=== PATIENT | male | born 1930 | race Caucasian/White ===

== ENCOUNTER 2016-10-01 16:26 | Emergency (ER) | payer MEDICARE, BC ==
[2016-10-01 16:37] VITALS: BP 127/60
--- NOTE | 2016-10-01 16:59 | EDM.PDOC ---
ED HISTORY OF PRESENT ILLNESS - General Chief Complaint: Chest Pain Stated Complaint: LT ARM WEAKNESS Time Seen by Provider: 10/01/16 16:59 Source of Information: Reports: Patient History Limitations: Reports: No limitations - History of Present Illness INITIAL COMMENTS - FREE TEXT/NARRATIVE: 85-year-old male presents to the ED for evaluation of what he calls left arm weakness. He states it's not worked or felt quite right for about 2 weeks.discomfort is constant and described as a deep ache.He doesn't feel like he has the strength in it that he should. Seems to have some ache in the middle of the forearm the middle of the biceps and up into the left exit low. He also reports a heaviness across his anterior left and right upper chest. Has a chronic productive sounding cough. Used his inhaler this morning for the first time in a lengthy period of time. Feels very short of breath on minimal exertion. Has a history of previous coronary artery bypass surgery with at least one NV. ED in good. He seen in the ED amy Vick for constipation which she reports is much improved.of note O2 sats are 99% on room air. Symptom Onset Date: 09/30/16 (heaviness in his upper chest started yesterday. As discussed above left arm weakness started 2 weeks ago or more) Timing/Duration: Reports: Day(s):, Gradual onset, Unsure Severity: moderate Location, General: Reports: chest (some mild heaviness across his upper chest both right and left side. Paroxysmal so she did cough.), upper extremity, left ( middle biceps middle of the forearm and left eczema.) Quality: Reports: Ache, Pressure (mild heaviness.) Improves with: Reports: None Worsens with: Reports: None, Movement Context, General: Denies: Activity (basal quite easy I because more short of breath on minimal exertion.), Exercise, Lifting, Sick contact, Trauma, Other Associated Symptoms (General): Reports: chest pain, cough, malaise, shortness of breath, weakness (today his left upper extremity seems weaker than normal.). Denies: no other symptoms, confusion (see history of present illness), cough w sputum, diaphoresis, fever/chills, headaches, loss of appetite, nausea/ vomiting, rash, seizure Treatments MANAGER FORMS: Reports: Other (see below) (ief of the shortness of breat) - Related Data Allergies/ADRs: Allergies Allergy/AdvReac Type Severity Reaction Status Date / Time ampicillin Allergy Hives Verified 10/01/16 16:32 levofloxacin [From Levaquin] Allergy Rash Verified 10/01/16 16:32 Penicillins Allergy Hives Verified 10/01/16 16:32 tetracycline Allergy Cannot Verified 10/01/16 16:32 Remember atorvastatin [From Lipitor] AdvReac Body Aches Verified 10/01/16 16:32 lovastatin AdvReac Body Aches Verified 10/01/16 16:32 Home Meds: Home Meds Acetaminophen [Tylenol] 325 mg PO DAILY PRN 12/23/13 [History] Finasteride [Proscar] 5 mg PO DAILY 12/23/13 [History] Furosemide [Lasix] 20 mg PO DAILY 12/23/13 [History] [place]-3 Fatty Acids/Fish Oil [[facility] Fish Oil 1,000 mg Softgel] 1 each PO DAILY [History] Terazosin [Hytrin] 10 mg PO BEDTIME 12/23/13 [History] Albuterol [Proventil HFA] 2 inh INH ASDIRECTED PRN 07/10/16 [History] Albuterol [Take Home: Albuterol 0.083%, 4 Neb Pack] 1 inh NEB QID PRN 07/10/16 [ History] Calcium Carbonate/Vitamin D3 [Calcium Carb 500 MG] 500 10/01/16 [History] Cyanocobalamin (Vitamin B-12) [B-12] 1,000 mcg PO DAILY 10/01/16 [History] Metoprolol Succinate [Toprol XL] 12.5 mg PO DAILY 10/01/16 [History] Polyethylene Glycol 3350 [MiraLAX] 1 packet PO DAILY 10/01/16 [History] Pravastatin [Pravachol] 20 mg PO DAILY 10/01/16 [History] Prednisone [IJD: predniSONE] 20 mg PO ASDIRECTED #15 tab 10/01/16 [Rx] Past Medical History HEENT History: Reports: Cataract, Impaired vision Other HEENT History: Wears glasses, dentures Cardiovascular History: Reports: Afib, Aneurysm, Bypass, Cardiomyopathy, High cholesterol, Hypertension, NV, PTCA, Other (see below) Other Cardiovascular History: carotid stenosis, dvt x2, Respiratory History: Reports: Asthma, COPD Gastrointestinal History: Reports: Diverticulosis, GERD, Other (see below) Other Gastrointestinal History: increased bilirubin Genitourinary History: Reports: BPH, Other (see below) Other Genitourinary History: renal insufficiency, retention Musculoskeletal History: Reports: Other (see below) Other Musculoskeletal History: rib fracture, degenrative joint disease, vertebral fracture, hand pain, stress fracture Neurological History: Reports: Neuropathy, peripheral Endocrine/Metabolic History: Reports: Diabetes, type II Hematologic History: Reports: Anemia Oncologic (Cancer) History: Reports: Colon Dermatologic History: Reports: Other (see below) Other Dermatologic History: actinic keratosis, skin lesion, cryosurgery - Past Surgical History HEENT Surgical History: Reports: Cataract surgery Cardiovascular Surgical History: Reports: AAA repair, Coronary artery bypass GI Surgical History: Reports: Appendectomy, Colonoscopy, EGD, Other (see below) Other GI Surgeries/Procedures: colon resection Social & Family History - Family History Family Medical History: Noncontributory - Tobacco Use Smoking Status *Q: Former Smoker Years of Tobacco use: 40 Used Tobacco, but Quit: Yes Month Tobacco Last Used: 10 yrs Second Hand Smoke Exposure: No - Caffeine Use Caffeine Use: Reports: Coffee, Soda - Alcohol Use Days Per Week of Alcohol Use: 0 - Recreational Drug Use Recreational Drug Use: No - Living Situation & Occupation Occupation: retired ED ROS GENERAL - Review of Systems Review Of Systems: See Below Constitutional: Reports: malaise, weakness, fatigue, decreased appetite, weight loss. Denies: chills HEENT: Reports: Hearing loss (chronically hard of hearing.. Does wear hearing aids.) Respiratory: Reports: shortness of breath, wheezing, cough, sputum. Denies: pleuritic chest pain, hemoptysis Cardiovascular: Reports: Chest pain (across right upper and left upper chest. Some discomfort in his left arm eczema and forearm. He states this is been present for about 2 weeks. The chest discomfort more or less just the last few days.), Dyspnea on exertion (chronically), Edema (mild in his feet.). Denies: Blood pressure problem, Orthopnea, Palpitations Endocrine: Reports: fatigue GI/Abdominal: Reports: Constipation (resolved after soapsuds enema and MiraLax orally yesterday.) : Reports: frequency, other (nocturia x3. Has BPH.) Musculoskeletal: Reports: neck pain, shoulder pain, back pain, joint pain (the pain at times) Skin: Reports: no symptoms Neurological: Reports: no symptoms Psychiatric: Reports: No symptoms Hematologic/Lymphatic: Reports: no symptoms Immunologic: Reports: no symptoms ED EXAM, GENERAL - Physical Exam Exam: See Below Exam Limited By: Physical impairment (he is quite hard of hearing. To speak quite loud.) General Appearance: alert, WD/WN, no apparent distress Throat/Mouth: Normal inspection, Normal lips, Normal teeth, Normal oropharynx Head: atraumatic, normocephalic Neck: normal inspection, supple, limited range of motion, tender lateral (has quite tender lateral spine bilaterally particularly C6-C7 level. He has crepitus with rotation in either direction.). No: carotid bruit, lymphadenopathy (L), lymphadenopathy (R), thyromegaly Respiratory/Chest: decreased breath sounds (throughout both lungs worse on the left as compared to the rightdecreased breath sounds to the lower 30% of the posterior lung moe bilaterally.), rhonchi (throughout both lungs.), wheezing , prolonged expiration, other (well-healed midline sternotomy incision from previous bypass surgery) Cardiovascular: regular rate, rhythm, no edema, no gallop, no murmur, no rub, JVD (4 cm below the angle of the mandible.). No: normal peripheral pulses Peripheral Pulses: 1+: posterior tibial (L), posterior tibial (R), dorsalis pedis (L), dorsalis pedis (R) GI/Abdominal: normal bowel sounds, soft, non tender, no organomegaly, no abnormal bruit, no mass (Male) Exam: No hernia Back Exam: normal inspection, full range of motion. No: CVA tenderness (L), CVA tenderness (R) Extremities: normal inspection, normal range of motion, pedal edema (trace edema at the ankles.), other (yet full motor power tone and strength in his left upper extremity. There was no left axillary masses. Good axillary pulses good radial and ulnar pulses distally. No localized pain that I could identify the muscles of the arm or forearm.) Neurological: alert, oriented, CN II-XII intact, normal cognition, no motor/ sensory deficits, other Psychiatric: normal affect, normal mood EKG INTERPRETATION EKG Date: 10/01/16 Time: 16:40 Rhythm: NSR Rate (beats/min): 74 [place]: RAD-right axis deviation (118.) P-wave: present QRS: other (he is Q waves in leads one and x-ray V1 V2 compatible with an old anteroseptal myocardial infarction. There is also Q waves in leads one and aVL compatible with a lateral wall NV. There is diffuse T-wave changes flattening for the most part in leads 3 aVF V5 and V6. QT interval is slightly prolonged.) EKG Interpretation Comments: abnormal ECG Course - Vital Signs Last Recorded V/S: Last Vital Signs Temp 36.8 C 10/01/16 16:33 Pulse 80 10/01/16 16:33 Resp 18 10/01/16 16:33 BP 127/60 10/01/16 16:33 Pulse Ox 99 10/01/16 16:33 - Orders/Labs/Meds Orders: Active Orders 24 hr Category Date Time Status EKG Documentation Completion [RC] STAT Care 10/01/16 17:59 Active Chest 1V Frontal [CR] Stat Exams 10/01/16 17:05 Taken CULTURE BLOOD [BC] Stat Lab 10/01/16 17:06 Ordered CULTURE BLOOD [BC] Stat Lab 10/01/16 17:06 Ordered Blood Culture x2 Reflex Set [OM.PC] Stat Oth 10/01/16 17:06 Ordered Labs: Laboratory Tests 10/01/16 10/01/16 10/01/16 Range/Units 16:40 16:40 16:40 WBC 5.03 (4.23-9.07) K/mm3 RBC 4.36 L (4.63-6.08) M/mm3 Hgb 12.6 L (13.7-17.5) gm/L Hct 39.4 L (40.1-51.0) % MCV 90.4 (79.0-92.2) fl MCH 28.9 (25.7-32.2) pg MCHC 32.0 L (32.2-35.5) g/dl RDW Std Deviation 44.5 H (35.1-43.9) fL Plt Count 155 L (163-337) K/mm3 MPV 10.9 (9.4-12.3) fl Neutrophils % (Manual) 51 (40-60) % Band Neutrophils % 0 (0-10) % Lymphocytes % (Manual) 45 H (20-40) % Atypical Lymphs % 0 % Monocytes % (Manual) 2 (2-10) % Eosinophils % (Manual) 2 (0.8-7.0) % Basophils % (Manual) 0 L (0.2-1.2) Platelet Estimate Adequate RBC Morph Comment Normal PT 10.5 (8.0-13.0) SECONDS INR 0.99 Sodium 142 (136-145) mEq/L Potassium 4.2 (3.5-5.1) mEq/L Chloride 106 (98-107) mEq/L Carbon Dioxide 28 (21-32) mEq/L Anion Gap 12.2 (5-15) BUN 29 H (7-18) mg/dL Creatinine 1.6 H (0.7-1.3) mg/dL Est Cr Clr Drug Dosing TNP Estimated GFR (MDRD) 41 (>60) mL/min BUN/Creatinine Ratio 18.1 H (14-18) Glucose 133 H (83-115) mg/dL Calcium 8.9 (8.5-10.1) mg/dL Magnesium 2.2 (1.8-2.4) mg/dl Total Bilirubin 0.9 (0.2-1.0) mg/dL AST 14 L (15-37) U/L ALT 16 (16-63) U/L Alkaline Phosphatase 88 (46-116) U/L CK-MB (CK-2) 3.7 H (0-3.6) ng/ml Troponin I < 0.017 (0.00-0.056) ng/mL C-Reactive Protein < 0.2 (<1.0) mg/dL B-Natriuretic Peptide (0-100) pg/mL Total Protein 7.0 (6.4-8.2) g/dl Albumin 3.7 (3.4-5.0) g/dl Globulin 3.3 gm/dL Albumin/Globulin Ratio 1.1 (1-2) 10/01/16 Range/Units 16:40 WBC (4.23-9.07) K/mm3 RBC (4.63-6.08) M/mm3 Hgb (13.7-17.5) gm/L Hct (40.1-51.0) % MCV (79.0-92.2) fl MCH (25.7-32.2) pg MCHC (32.2-35.5) g/dl RDW Std Deviation (35.1-43.9) fL Plt Count (163-337) K/mm3 MPV (9.4-12.3) fl Neutrophils % (Manual) (40-60) % Band Neutrophils % (0-10) % Lymphocytes % (Manual) (20-40) % Atypical Lymphs % % Monocytes % (Manual) (2-10) % Eosinophils % (Manual) (0.8-7.0) % Basophils % (Manual) (0.2-1.2) Platelet Estimate RBC Morph Comment PT (8.0-13.0) SECONDS INR Sodium (136-145) mEq/L Potassium (3.5-5.1) mEq/L Chloride (98-107) mEq/L Carbon Dioxide (21-32) mEq/L Anion Gap (5-15) BUN (7-18) mg/dL Creatinine (0.7-1.3) mg/dL Est Cr Clr Drug Dosing Estimated GFR (MDRD) (>60) mL/min BUN/Creatinine Ratio (14-18) Glucose (83-115) mg/dL Calcium (8.5-10.1) mg/dL Magnesium (1.8-2.4) mg/dl Total Bilirubin (0.2-1.0) mg/dL AST (15-37) U/L ALT (16-63) U/L Alkaline Phosphatase (46-116) U/L CK-MB (CK-2) (0-3.6) ng/ml Troponin I (0.00-0.056) ng/mL C-Reactive Protein (<1.0) mg/dL B-Natriuretic Peptide 196 H (0-100) pg/mL Total Protein (6.4-8.2) g/dl Albumin (3.4-5.0) g/dl Globulin gm/dL Albumin/Globulin Ratio (1-2) Meds: Medications Discontinued Medications Generic Name Dose Route Start Last Admin Trade Name Freq PRN Reason Stop Dose Admin Acetaminophen 650 mg 10/01/16 17:07 10/01/16 18:06 Tylenol PO 10/01/16 17:08 650 mg NOW ONE Administration Sodium Chloride 1,000 mls @ 125 mls/hr 10/01/16 17:15 Normal Saline IV ASDIRECTED CRISTIANO Prednisone 20 mg 10/01/16 17:59 10/01/16 18:06 Prednisone PO 10/01/16 18:00 20 mg ONETIME ONE Administration - Radiology Interpretation Free Text/Narrative:: 85-year-old male presents to the ED for evaluation of vague complaints of weakness in his left upper extremity for the last 2 weeks. Associated dyspnea on minimal exertion and some headaches across his upper left and right chest. This seemed to be more present the last few days. He does have a productive sounding cough at times. On examination he has COPD statements that with diffuse rhonchi and wheezes throughout both lung moe. I could find nothing wrong with the left upper Omar with full motor power tone and strength and normal coordination on finger to nose and rapid alternating movements. He has slight tenderness on testing the supraspinatus tendon of the right left shoulder. Plan ECG does not show anything acute. 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 No acute ischemic changes appreciated plan one view chest x-ray routine labs to include BMP and cardiac markers and serum magnesium. IV will be normal saline at 125 mils per hour. Feels warm to me I ordered blood cultures x2. Given Tylenol 650 mg per or for headache relief. Will be given a duo neb as well for his wheezing and chest congestion. - Re-Assessments/Exams Free Text/Narrative Re-Assessment/Exam: 10/01/16 17:48 chest shows mild cardiomegaly. He has mild fibrosis throughout the lung site old appearing lungs. Slight blunting of the right costophrenic angle. There is no pleural effusion. No true infiltrate within the lungs. 10/01/16 17:51labs reveal a normal white count at 5.03 with 51% neutrophils and 45% with hemoglobin is 12.6 hematocrit 39.4. Pelvis normal 155,000. Coags were normal. Chemistry shows a sodium of 142 potassium 4.2 chloride 106. Anion gap is 12.2. BUN is up a little bit at 29 creatinine is 1.6 GFR is 41. Glucose 133 magnesium 2.2 troponin was less than 0.017 CRP less than 0.2. BNP mildly elevated at 196. Therefore no evidence of recent myocardial infarction minimal evidence of heart failure. Most of his adventitious sounds in his lungs are secondary to COPD. 10/01/16 18:[address] him on low dose prednisone 20 mg a.m. and suppertime for 5 days then once a day in the morning for another 5 days. I suspect the pain in his left upper extremity is actually coming out of his neck which is showing evidence of arthritic changes. The prednisone is likely to help this as well his his lungs. Advised him to use his albuterol med nebulizer machine twice daily morning and bedtime. He was quite happy to find out he was not having a heart attack causing his left upper extremity pain. 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 Of stroke continued pain in the middle of the left arm and forearm. Investigations completed in the ED revealed a little bit of fluid within the lungs but this is of no major importance. Major problems with the lungs are emphysema with a lot of wheezing causing her to be more short of breath than normal. I suspect the left upper extremity pain is secondary to a pinched nerve in your neck which is causing the discomfort in the left upper arm. Treatment is to be prednisone 20 mg with breakfast and supper for 5 days then one tablet in the morning only for further 5 days to reduce inflammation in both her lungs and help ease the arthritis pain in her neck and hopefully relieve pain and left arm. Followup with her personal physician in 12 days time. - My Orders Last 24 Hours: My Active Orders 10/01/16 17:05 Chest 1V Frontal [CR] Stat 10/01/16 17:06 CULTURE BLOOD [BC] Stat CULTURE BLOOD [BC] Stat Blood Culture x2 Reflex Set [OM.PC] Stat 10/01/16 17:59 EKG Documentation Completion [RC] STAT - Assessment/Plan Last 24 Hours: My Active Orders 10/01/16 17:05 Chest 1V Frontal [CR] Stat 10/01/16 17:06 CULTURE BLOOD [BC] Stat CULTURE BLOOD [BC] Stat Blood Culture x2 Reflex Set [OM.PC] Stat 10/01/16 17:59 EKG Documentation Completion [RC] STAT
[2016-10-01] MEDS ORDERED: Acetaminophen 325 MG Tab PO ONE (17:07)
[2016-10-01] MEDS ORDERED: Sodium Chloride 0.9% 1,000 ML IV SCH (17:15)
[2016-10-01] MEDS ORDERED: predniSONE 20 MG Tab PO ONE (17:59)
--- NOTE | 2016-10-02 08:17 | CR ---
Chest: Portable view of the chest was obtained. Comparison: Previous chest x-ray of 10/15/15. Blunting of the right lateral costophrenic angle is seen which appears stable from prior exam. Lungs are clear with no acute infiltrates. Sternotomy noted. Heart size not enlarged. Upper mediastinum appears within normal limits. Bony structures are grossly intact. Partially visualized aortic stent is present. Impression: 1. Stable findings as noted above. Nothing acute is appreciated on portable chest x-ray. No significant change from prior chest x-ray is seen. Diagnostic code #2
== END 2016-10-01 18:15 | disposition home or self-care (01) ==
LOC: JD.ED 16:26
DX: J43.9 Emphysema, unspecified (principal); M47.22 Other spondylosis with radiculopathy, cervical region; I10 Essential (primary) hypertension; R06.02 Shortness of breath; I25.2 Old myocardial infarction; I25.810 Atherosclerosis of coronary artery bypass graft(s) without angina pectoris; E78.00 Pure hypercholesterolemia, unspecified; K21.9 Gastro-esophageal reflux disease without esophagitis; E11.9 Type 2 diabetes mellitus without complications; D64.9 Anemia, unspecified; Z98.49 Cataract extraction status, unspecified eye; Z95.1 Presence of aortocoronary bypass graft; Z90.49 Acquired absence of other specified parts of digestive tract; Z87.891 Personal history of nicotine dependence; Z79.899 Other long term (current) drug therapy; Z88.0 Allergy status to penicillin; Z88.1 Allergy status to other antibiotic agents; Z88.8 Allergy status to other drugs, medicaments and biological substances
CPT/HCPCS: 36415; 71010; 80053; 82553; 83735; 83880; 84484; 85025; 85610; 86140; 93005; 99284; A9270

== ENCOUNTER 2016-10-03 14:04 | Emergency (ER) | payer MEDICARE, BC ==
[2016-10-03] MEDS ORDERED: Sodium Chloride 0.9% 10 ML Syringe FLUSH PRN (14:20)
[2016-10-03] MEDS ORDERED: HYDROmorphone 0.5 MG/0.5 ML Syringe IVPUSH ONE ×2 (14:22→15:19)
--- NOTE | 2016-10-03 15:10 | EDM.PDOC ---
ED HPI Trauma - General Chief Complaint: Lower Extremity Injury/Pain Stated Complaint: [facility] Time Seen by Provider: 10/03/16 14:12 Source: Reports: Patient, EMS History Limitations: Reports: No limitations - History of Present Illness INITIAL COMMENTS - FREE TEXT/NARRATIVE: The patient was at home on his porch and he tripped on a rug and fell and fractured his left hip. He came by ambulance. He denies any LOC and he did not hurt his neck. He has no fever, chills, cough, congestion, chest pain, shortness of breath or abdominal pain. He has a history of COPD, CABG, A-fib, diabetes, aneurysm repair, cardiomyopathy, HTN, GREGG, carotid stenosis, DVT X 2 and renal insufficiency. Occurred When: just prior to arrival Occurred Where: home Method of Injury: fall Severity: moderate Pain/Injury Location: Reports: lower extremity, left (hip) Consciousness: Reports: no loss of consciousness Associated Symptoms: Reports: no other symptoms Allergies/ADRs: Allergies ampicillin Allergy (Verified 10/03/16 14:06) Hives levofloxacin [From Levaquin] Allergy (Verified 10/03/16 14:06) Rash Penicillins Allergy (Verified 10/03/16 14:06) Hives tetracycline Allergy (Verified 10/03/16 14:06) Cannot Remember atorvastatin [From Lipitor] Adverse Reaction (Verified 10/03/16 14:06) Body Aches lovastatin Adverse Reaction (Verified 10/03/16 14:06) Body Aches Home Medications: Ambulatory Orders Acetaminophen [Tylenol] 325 mg PO DAILY PRN 12/23/13 [Confirmed 10/01/16] Finasteride [Proscar] 5 mg PO DAILY 12/23/13 [Confirmed 10/01/16] Furosemide [Lasix] 20 mg PO DAILY 12/23/13 [Confirmed 10/01/16] [place]-3 Fatty Acids/Fish Oil [Cvs Fish Oil 1,000 mg Softgel] 1 each PO DAILY [Confirmed 10/01/16] Terazosin [Hytrin] 10 mg PO BEDTIME 12/23/13 [Confirmed 10/01/16] Albuterol [Proventil HFA] 2 inh INH ASDIRECTED PRN 07/10/16 [Confirmed 10/01/16] Albuterol [Take Home: Albuterol 0.083%, 4 Neb Pack] 1 inh NEB QID PRN 07/10/16 [ Confirmed 10/01/16] Calcium Carbonate/Vitamin D3 [Calcium Carb 500 MG] 500 10/01/16 Cyanocobalamin (Vitamin B-12) [B-12] 1,000 mcg PO DAILY 10/01/16 [Confirmed ] Metoprolol Succinate [Toprol XL] 12.5 mg PO DAILY 10/01/16 [Confirmed 10/01/16] Polyethylene Glycol 3350 [MiraLAX] 1 packet PO DAILY 10/01/16 [Confirmed ] Pravastatin [Pravachol] 20 mg PO DAILY 10/01/16 [Confirmed 10/01/16] Prednisone [IJD: predniSONE] 20 mg PO ASDIRECTED #15 tab 10/01/16 Past Medical History HEENT History: Reports: Cataract, Impaired vision Other HEENT History: Wears glasses, dentures Cardiovascular History: Reports: Afib, Aneurysm, Bypass, Cardiomyopathy, High cholesterol, Hypertension, [place], PTCA, Other (see below) Other Cardiovascular History: carotid stenosis, dvt x2, Respiratory History: Reports: Asthma, COPD Gastrointestinal History: Reports: Diverticulosis, GERD, Other (see below) Other Gastrointestinal History: increased bilirubin Genitourinary History: Reports: BPH, Other (see below) Other Genitourinary History: renal insufficiency, retention Musculoskeletal History: Reports: Other (see below) Other Musculoskeletal History: rib fracture, degenrative joint disease, vertebral fracture, hand pain, stress fracture Neurological History: Reports: Neuropathy, peripheral Endocrine/Metabolic History: Reports: Diabetes, type II Hematologic History: Reports: Anemia Oncologic (Cancer) History: Reports: Colon Dermatologic History: Reports: Other (see below) Other Dermatologic History: actinic keratosis, skin lesion, cryosurgery - Past Surgical History HEENT Surgical History: Reports: Cataract surgery Cardiovascular Surgical History: Reports: AAA repair, Coronary artery bypass GI Surgical History: Reports: Appendectomy, Colonoscopy, EGD, Other (see below) Other GI Surgeries/Procedures: colon resection Social & Family History - Family History Family Medical History: Noncontributory - Tobacco Use Smoking Status *Q: Former Smoker Years of Tobacco use: 40 Used Tobacco, but Quit: Yes Month Tobacco Last Used: 10 yrs Second Hand Smoke Exposure: No - Caffeine Use Caffeine Use: Reports: Coffee, Soda - Alcohol Use Days Per Week of Alcohol Use: 0 - Recreational Drug Use Recreational Drug Use: No - Living Situation & Occupation Occupation: retired Review of Systems - Review of Systems Review Of Systems: See Below Constitutional: Reports: no symptoms Eyes: Reports: no symptoms Ears: Reports: no symptoms Nose: Reports: no symptoms Mouth/Throat: Reports: no symptoms Respiratory: Reports: no symptoms Cardiovascular: Reports: no symptoms GI/Abdominal: Reports: No symptoms Genitourinary: Reports: no symptoms Musculoskeletal: Reports: other (Left hip pain) Skin: Reports: no symptoms Neurological: Reports: no symptoms Trauma Exam - Physical Exam Exam: See Below Exam Limited By: No limitations General Appearance: Reports: alert, no apparent distress Head: Reports: atraumatic, normocephalic Ears: Reports: normal external exam Nose: Reports: normal inspection Neck: Reports: non-tender Respiratory Exam: Reports: no respiratory distress, lungs clear, normal breath sounds Cardiovascular: Reports: regular rate, rhythm, no edema, no murmur GI/Abdominal: Reports: soft, non tender, no organomegaly Extremities: Reports: other (Deformity at the left hip and moderate to severe pain upon palpation. Leg is shortened. Good sensation and pulses distally.) EKG INTERPRETATION EKG Date: 10/03/16 Time: 14:48 Rhythm: NSR Rate (beats/min): 78 [place]: normal P-wave: present QRS: normal ST-T: normal QT: normal EKG Interpretation Comments: Q waves in the anterior leads Course - Vital Signs Last Recorded V/S: Last Vital Signs Temp 97.6 F 10/03/16 14:06 Pulse 80 10/03/16 14:06 Resp 20 10/03/16 14:06 BP 144/75 H 10/03/16 14:06 Pulse Ox - Orders/Labs/Meds Orders: Active Orders 24 hr Category Date Time Status Cardiac Monitoring [RC] . DIRECTED Care 10/03/16 14:20 Active EKG Documentation Completion [RC] STAT Care 10/03/16 14:21 Active Peripheral IV Care [RC] . DIRECTED Care 10/03/16 14:20 Active Chest 1V Frontal [CR] Stat Exams 10/03/16 14:21 Taken Hip Min 2V or 3V w Pelvis Lt [CR] Stat Exams 10/03/16 14:21 Taken Sodium Chloride 0.9% [Saline Flush] Med 10/03/16 14:20 Active 10 ml FLUSH ASDIRECTED PRN Peripheral IV Insertion Adult [OM.PC] Stat Oth 10/03/16 14:20 Ordered Medication Orders Sodium Chloride (Saline Flush) 10 ml FLUSH ASDIRECTED PRN PRN Reason: Keep Vein Open Last Admin: 10/03/16 15:26 Dose: 10 ml Labs: Laboratory Tests 10/03/16 10/03/16 10/03/16 Range/Units 14:12 14:12 14:20 WBC 6.94 (4.23-9.07) K/mm3 RBC 4.17 L (4.63-6.08) M/mm3 Hgb 12.0 L (13.7-17.5) gm/L Hct 37.1 L (40.1-51.0) % MCV 89.0 (79.0-92.2) fl MCH 28.8 (25.7-32.2) pg MCHC 32.3 (32.2-35.5) g/dl RDW Std Deviation 43.6 (35.1-43.9) fL Plt Count 156 L (163-337) K/mm3 MPV 10.7 (9.4-12.3) fl Neut % (Auto) 76.7 H (34.0-67.9) % Lymph % (Auto) 16.6 L (21.8-53.1) % [place] % (Auto) 6.2 (5.3-12.2) % Eos % (Auto) 0.1 L (0.8-7.0) Baso % (Auto) 0.0 L (0.1-1.2) % Neut # 5.32 (1.78-5.38) K/mm3 Lymph # 1.15 L (1.32-3.57) K/mm3 [place] # 0.43 (0.30-0.82) K/mm3 Eos # 0.01 L (0.04-0.54) K/mm3 Baso # 0.00 L (0.01-0.08) K/mm3 Sodium 139 (136-145) mEq/L Potassium 4.7 (3.5-5.1) mEq/L Chloride 102 (98-107) mEq/L Carbon Dioxide 26 (21-32) mEq/L Anion Gap 15.7 H (5-15) BUN 32 H (7-18) mg/dL Creatinine 1.7 H (0.7-1.3) mg/dL Est Cr Clr Drug Dosing TNP Estimated GFR (MDRD) 38 (>60) mL/min BUN/Creatinine Ratio 18.8 H (14-18) Glucose 178 H (83-115) mg/dL Calcium 9.3 (8.5-10.1) mg/dL Total Bilirubin 0.7 (0.2-1.0) mg/dL AST 14 L (15-37) U/L ALT 20 (16-63) U/L Alkaline Phosphatase 88 (46-116) U/L Troponin I < 0.017 (0.00-0.056) ng/mL Total Protein 7.4 (6.4-8.2) g/dl Albumin 3.8 (3.4-5.0) g/dl Globulin 3.6 gm/dL Albumin/Globulin Ratio 1.1 (1-2) Urine Color Yellow (Yellow) Urine Appearance Slt cloudy H (Clear) Urine pH 6.0 (5.0-8.0) Ur Specific [place] 1.020 (1.005-1.030) Urine Protein Negative (Negative) Urine Glucose (UA) Negative (Negative) Urine Ketones Negative (Negative) Urine Occult Blood 2+ H (Negative) Urine Nitrite Negative (Negative) Urine Bilirubin Negative (Negative) Urine Urobilinogen 0.2 (0.2-1.0) Ur Leukocyte Esterase 2+ H (Negative) Urine RBC 0-5 (0-5) /hpf Urine WBC 10-20 H (0-5) /hpf Ur Squamous Epith Cells Not seen (0-5) /hpf Urine Bacteria Many H (FEW) /hpf Urine Mucus Not seen (FEW) /hpf Meds: Medications Generic Name Dose Route Start Last Admin Trade Name Freq PRN Reason Stop Dose Admin Sodium Chloride 10 ml 10/03/16 14:20 10/03/16 15:26 Saline Flush FLUSH 10 ml ASDIRECTED PRN Administration Keep Vein Open Discontinued Medications Generic Name Dose Route Start Last Admin Trade Name Freq PRN Reason Stop Dose Admin Hydromorphone HCl 0.5 mg 10/03/16 14:22 10/03/16 14:46 Dilaudid IVPUSH 10/03/16 14:23 0.5 mg ONETIME ONE Administration Hydromorphone HCl 0.5 mg 10/03/16 15:19 10/03/16 15:27 Dilaudid IVPUSH 10/03/16 15:20 0.5 mg ONETIME ONE Administration - Re-Assessments/Exams Free Text/Narrative Re-Assessment/Exam: 10/03/16 15:11 I ordered oxygen, IV saline lock and dilaudid 0.5mg IV. He has an intertrochanteric fracture of the left hip. His EKG shows a NSR and his CXR looks good. 10/03/16 15:15 His Hgb is a little low at 12. His platelets are a little low at 156. His creatinine is elevated at 1.7. His troponin is negative. 10/03/16 15:20 He had more pain so I ordered dilaudid 0.5mg IV. 10/03/16 15:50 I talked to our hospitalist and he came to see the patient and they talked about his risks for surgery. He has lots of health problems. The patient and family decided to go to [facility] in [place]. I called [facility] and talked with Dr Lynne the orthopedic surgeon working second hand and he accepted the patient. He will go to the ER first. Departure - Departure Time of Disposition: 16:00 Disposition: DC/Tfer to Acute Hospital 02 Condition: fair Clinical Impression: Intertrochanteric fracture, hip Fall Qualifiers: Encounter type: initial encounter Qualified Code(s): W19.XXXA - Unspecified fall, initial encounter Referrals: PCP,Unknown [Primary Care Provider] - Forms: ED Department Discharge - My Orders Last 24 Hours: My Active Orders 10/03/16 14:20 Cardiac Monitoring [RC] . DIRECTED Peripheral IV Care [RC] . DIRECTED Sodium Chloride 0.9% [Saline Flush] 10 ml FLUSH ASDIRECTED PRN Peripheral IV Insertion Adult [OM.PC] Stat 10/03/16 14:21 EKG Documentation Completion [RC] STAT Chest 1V Frontal [CR] Stat Hip Min 2V or 3V w Pelvis Lt [CR] Stat - Assessment/Plan Last 24 Hours: My Active Orders 10/03/16 14:20 Cardiac Monitoring [RC] . DIRECTED Peripheral IV Care [RC] . DIRECTED Sodium Chloride 0.9% [Saline Flush] 10 ml FLUSH ASDIRECTED PRN Peripheral IV Insertion Adult [OM.PC] Stat 10/03/16 14:21 EKG Documentation Completion [RC] STAT Chest 1V Frontal [CR] Stat Hip Min 2V or 3V w Pelvis Lt [CR] Stat
[2016-10-03 17:49] VITALS: BP 109/79
--- NOTE | 2016-10-04 09:07 | CR ---
Pelvis and left hip: AP view of the pelvis was obtained as well as AP and lateral views of the left hip. Intertrochanteric fracture seen within the left hip. Mild displacement noted on the lateral view. Severe degenerative change seen within the left hip. Previous vertebroplasty noted of L4. Bony structures are osteopenic. Vascular calcification noted. Aortoiliac stent is partially visualized. Degenerative change seen within the lower sacroiliac joints. Impression: 1. Mildly displaced intertrochanteric fracture within the left hip. 2. Severe degenerative change within the left hip. 2. Other incidental findings as noted above. Diagnostic code #3
--- NOTE | 2016-10-04 09:07 | CR ---
Chest: Frontal view of the chest was obtained. Comparison: Previous chest x-ray of 10/01/16. Heart is slightly enlarged which is an interval change from previous exam. Some of this may relate to differences between systole and diastole. Previous sternotomy is noted. Minimal blunting of the right lateral costophrenic angle is seen which is stable. Lungs otherwise are clear. Bony structures are grossly intact. Impression: 1. Heart slightly enlarged from prior study most likely representing change between systole and diastole. 2. Stable blunting of the right lateral costophrenic angle from prior exam. 3. Nothing acute is otherwise seen. Diagnostic code #2
== END 2016-10-03 17:40 ==
LOC: JD.ED 14:04
DX: S72.092A Other fracture of head and neck of left femur, initial encounter for closed fracture (principal); I48.91 Unspecified atrial fibrillation; E78.00 Pure hypercholesterolemia, unspecified; K21.9 Gastro-esophageal reflux disease without esophagitis; I10 Essential (primary) hypertension; I25.2 Old myocardial infarction; E11.9 Type 2 diabetes mellitus without complications; Z88.0 Allergy status to penicillin; Z88.6 Allergy status to analgesic agent; Z88.8 Allergy status to other drugs, medicaments and biological substances; Z79.899 Other long term (current) drug therapy; Z98.49 Cataract extraction status, unspecified eye; Z95.1 Presence of aortocoronary bypass graft; Z90.49 Acquired absence of other specified parts of digestive tract; Z87.891 Personal history of nicotine dependence; W01.0XXA Fall on same level from slipping, tripping and stumbling without subsequent striking against object, initial encounter
CPT/HCPCS: 36415; 71010; 71010-26; 73502-26-LT; 73502-LT; 80053; 81001; 84484; 85025; 93005; 96374; 96376; 99285; 99285-25; J1170; J7050

== ENCOUNTER 2016-10-27 18:38 | Emergency (ER) | payer MEDICARE, BC ==
[2016-10-27 18:54] VITALS: BP 136/68
--- NOTE | 2016-10-27 19:42 | EDM.PDOC ---
ED HPI RENAL/ - General Chief Complaint: Genitourinary Problem Stated Complaint: TROUBLE URINATING Time Seen by Provider: 10/27/16 19:16 Source of Information: Reports: Patient, RN notes reviewed - History of Present Illness INITIAL COMMENTS - FREE TEXT/NARRATIVE: has had a grewal catheter in for urinary retention for about 2 wks, catheter removed at clinic this past morning, voided only a "couple of drops" after catheter removal and now not able to void at all. He is starting to feel some bladder pressure. No fever, chill, nausea, vomiting or other unusual sx. - Related Data Allergies/ADRs: Allergies Allergy/AdvReac Type Severity Reaction Status Date / Time ampicillin Allergy Hives Verified 10/27/16 18:54 levofloxacin [From Levaquin] Allergy Rash Verified 10/27/16 18:54 Penicillins Allergy Hives Verified 10/27/16 18:54 tetracycline Allergy Cannot Verified 10/27/16 18:54 Remember atorvastatin [From Lipitor] AdvReac Body Aches Verified 10/27/16 18:54 lovastatin AdvReac Body Aches Verified 10/27/16 18:54 Home Meds: Home Meds Acetaminophen [Tylenol] 325 mg PO DAILY PRN 12/23/13 [History] Finasteride [Proscar] 5 mg PO DAILY 12/23/13 [History] Furosemide [Lasix] 20 mg PO DAILY 12/23/13 [History] [place]-3 Fatty Acids/Fish Oil [Cvs Fish Oil 1,000 mg Softgel] 1 each PO DAILY [History] Terazosin [Hytrin] 10 mg PO BEDTIME 12/23/13 [History] Albuterol [Proventil HFA] 2 inh INH ASDIRECTED PRN 07/10/16 [History] Albuterol [Take Home: Albuterol 0.083%, 4 Neb Pack] 1 inh NEB QID PRN 07/10/16 [ History] Calcium Carbonate/Vitamin D3 [Calcium Carb 500 MG] 500 10/01/16 [History] Cyanocobalamin (Vitamin B-12) [B-12] 1,000 mcg PO DAILY 10/01/16 [History] Metoprolol Succinate [Toprol XL] 12.5 mg PO DAILY 10/01/16 [History] Polyethylene Glycol 3350 [MiraLAX] 1 packet PO DAILY 10/01/16 [History] Pravastatin [Pravachol] 20 mg PO DAILY 10/01/16 [History] Prednisone [IJD: predniSONE] 20 mg PO ASDIRECTED #15 tab 10/01/16 [Rx] Past Medical History HEENT History: Reports: Cataract, Impaired vision Other HEENT History: Wears glasses, dentures Cardiovascular History: Reports: Afib, Aneurysm, Bypass, Cardiomyopathy, High cholesterol, Hypertension, [place], PTCA, Other (see below) Other Cardiovascular History: carotid stenosis, dvt x2, Respiratory History: Reports: Asthma, COPD Gastrointestinal History: Reports: Diverticulosis, GERD, Other (see below) Other Gastrointestinal History: increased bilirubin Genitourinary History: Reports: BPH, Retention, urinary, Other (see below) Other Genitourinary History: renal insufficiency, retention Musculoskeletal History: Reports: Other (see below) Other Musculoskeletal History: rib fracture, degenrative joint disease, vertebral fracture, hand pain, stress fracture Neurological History: Reports: Neuropathy, peripheral Endocrine/Metabolic History: Reports: Diabetes, type II Hematologic History: Reports: Anemia Oncologic (Cancer) History: Reports: Colon Dermatologic History: Reports: Other (see below) Other Dermatologic History: actinic keratosis, skin lesion, cryosurgery - Past Surgical History HEENT Surgical History: Reports: Cataract surgery Cardiovascular Surgical History: Reports: AAA repair, Coronary artery bypass GI Surgical History: Reports: Appendectomy, Colonoscopy, EGD, Other (see below) Other GI Surgeries/Procedures: colon resection Musculoskeletal Surgical History: Reports: Other (see below) Other Musculoskeletal Surgeries/Procedures:: hip repair Social & Family History - Family History Family Medical History: Noncontributory - Tobacco Use Smoking Status *Q: Never Smoker Years of Tobacco use: 40 Used Tobacco, but Quit: Yes Month Tobacco Last Used: 10 yrs Second Hand Smoke Exposure: No - Caffeine Use Caffeine Use: Reports: Coffee, Soda, Tea - Alcohol Use Days Per Week of Alcohol Use: 0 - Recreational Drug Use Recreational Drug Use: No - Living Situation & Occupation Occupation: retired ED ROS GENERAL - Review of Systems Review Of Systems: See Below Constitutional: Denies: fever, chills, diaphoresis HEENT: Reports: No symptoms Respiratory: Denies: Shortness of Breath Cardiovascular: Denies: Chest pain GI/Abdominal: Reports: Abdominal pain (He does feel pressure over the bladder). Denies: Nausea, Vomiting : Reports: urinary retention Musculoskeletal: Reports: other (No unusual symptoms) Skin: Reports: no symptoms Neurological: Reports: No Symptoms ED EXAM, RENAL/ - Physical Exam Exam: See Below General Appearance: alert, mild distress Throat/Mouth: Normal inspection, Normal oropharynx Head: atraumatic. No: facial swelling Neck: supple Respiratory/Chest: no respiratory distress, lungs clear, normal breath sounds Cardiovascular: regular rate, rhythm GI/Abdominal: other (Mild tenderness and fullness low abdomen). No: guarding, rebound Back Exam: No: CVA tenderness (L), CVA tenderness (R) Extremities: No: pedal edema, leg pain Neurological: alert, no motor/sensory deficits Skin Exam: Warm, Dry, Normal color Course - Vital Signs Last Recorded V/S: Last Vital Signs Temp 97.8 F 10/27/16 18:45 Pulse 80 10/27/16 18:45 Resp 18 10/27/16 18:45 BP 136/68 10/27/16 18:45 Pulse Ox 99 10/27/16 18:45 - Re-Assessments/Exams Free Text/Narrative Re-Assessment/Exam: 10/27/16 19:42 bladder scan showed about 500 cc urine. Grewal catheter has been placed, urine is clear, about 4 to 500 cc out. Departure - Departure Time of Disposition: 19:40 Disposition: Home, Self-Care 01 Condition: fair Clinical Impression: Urinary retention Instructions: Acute Urinary Retention, Male, [id number] Referrals: Oscar Chatman MD [Primary Care Provider] - Forms: ED Department Discharge Additional Instructions: continue previous care for grewal catheter and leg bag. Call for appointment to see Dr Beck early next week. Return to ED as needed.
== END 2016-10-27 20:00 | disposition home or self-care (01) ==
LOC: JD.ED 18:38
DX: R33.9 Retention of urine, unspecified (principal); I48.91 Unspecified atrial fibrillation; Z95.1 Presence of aortocoronary bypass graft; E78.00 Pure hypercholesterolemia, unspecified; I10 Essential (primary) hypertension; I25.2 Old myocardial infarction; J45.909 Unspecified asthma, uncomplicated; J44.9 Chronic obstructive pulmonary disease, unspecified; K21.9 Gastro-esophageal reflux disease without esophagitis; E11.9 Type 2 diabetes mellitus without complications; Z79.899 Other long term (current) drug therapy; Z86.2 Personal history of diseases of the blood and blood-forming organs and certain disorders involving the immune mechanism; Z98.49 Cataract extraction status, unspecified eye; Z90.49 Acquired absence of other specified parts of digestive tract; Z88.1 Allergy status to other antibiotic agents; Z88.0 Allergy status to penicillin; Z88.8 Allergy status to other drugs, medicaments and biological substances
CPT/HCPCS: 51702; 51798; 99282; 99283-25

== ENCOUNTER 2016-12-23 17:28 | Emergency (ER) | payer MEDICARE, BC ==
[2016-12-23 17:52] VITALS: BP 122/72
--- NOTE | 2016-12-23 18:10 | EDM.PDOC ---
ED HPI GENERAL MEDICAL PROBLEM - General Chief Complaint: Genitourinary Problem Stated Complaint: CATHETER ISSUES Time Seen by Provider: 12/23/16 17:50 Source of Information: Reports: Patient History Limitations: Reports: No Limitations - History of Present Illness INITIAL COMMENTS - FREE TEXT/NARRATIVE: Patient is a 86-year-old male who presents to the ED complaining of unable to pass urine through this catheter. Patient had a catheter placed 3 and half months ago due to urinary retention secondary to medications he was taking. Since then the catheter has been changed on a monthly basis to which he states was changed approximately one month ago. States recently he noticed urine passing around the catheter and saturating his pants. He did have some burning sensation when this occurred. He is seeing Dr. Alvarez Urologist at [facility] for this condition. Patient denies any fever/chills, nausea/vomiting, abdominal pain, or recent antibiotic use. Onset: Today Duration: Intermittent Location: Reports: Other Quality: Reports: Burning Severity: Mild Worsens with: Reports: Other (urination) Associated Symptoms: Reports: No Other Symptoms Treatments LOBSTERMAN: Reports: Other (see below) (none stated) - Related Data Allergies Allergy/AdvReac Type Severity Reaction Status Date / Time ampicillin Allergy Hives Verified 10/27/16 18:54 levofloxacin [From Levaquin] Allergy Rash Verified 10/27/16 18:54 Penicillins Allergy Hives Verified 10/27/16 18:54 tetracycline Allergy Cannot Verified 10/27/16 18:54 Remember atorvastatin [From Lipitor] AdvReac Body Aches Verified 10/27/16 18:54 lovastatin AdvReac Body Aches Verified 10/27/16 18:54 Home Meds: Home Meds Acetaminophen [Tylenol] 325 mg PO DAILY PRN 12/23/13 [History] Finasteride [Proscar] 5 mg PO DAILY 12/23/13 [History] Furosemide [Lasix] 20 mg PO DAILY 12/23/13 [History] [place]-3 Fatty Acids/Fish Oil [Cvs Fish Oil 1,000 mg Softgel] 1 each PO DAILY [History] Terazosin [Hytrin] 10 mg PO BEDTIME 12/23/13 [History] Albuterol [Proventil HFA] 2 inh INH ASDIRECTED PRN 07/10/16 [History] Albuterol [Take Home: Albuterol 0.083%, 4 Neb Pack] 1 inh NEB QID PRN 07/10/16 [ History] Calcium Carbonate/Vitamin D3 [Calcium Carb 500 MG] 500 10/01/16 [History] Cyanocobalamin (Vitamin B-12) [B-12] 1,000 mcg PO DAILY 10/01/16 [History] Metoprolol Succinate [Toprol XL] 12.5 mg PO DAILY 10/01/16 [History] Polyethylene Glycol 3350 [MiraLAX] 1 packet PO DAILY 10/01/16 [History] Pravastatin [Pravachol] 20 mg PO DAILY 10/01/16 [History] Prednisone [IJD: predniSONE] 20 mg PO ASDIRECTED #15 tab 10/01/16 [Rx] Nitrofurantoin Monohyd/M-Cryst [Macrobid 100 mg Capsule] 100 mg PO BID #20 capsule 12/23/16 [Rx] Past Medical History HEENT History: Reports: Cataract, Impaired Vision Other HEENT History: Wears glasses, dentures Cardiovascular History: Reports: Afib, Aneurysm, Bypass, Cardiomyopathy, High Cholesterol, Hypertension, [place], PTCA, Other (See Below) Other Cardiovascular History: carotid stenosis, dvt x2, Respiratory History: Reports: Asthma, COPD Gastrointestinal History: Reports: Diverticulosis, GERD, Other (See Below) Other Gastrointestinal History: increased bilirubin Genitourinary History: Reports: BPH, Retention, Urinary, Other (See Below) Other Genitourinary History: renal insufficiency, retention Musculoskeletal History: Reports: Other (See Below) Other Musculoskeletal History: rib fracture, degenrative joint disease, vertebral fracture, hand pain, stress fracture Neurological History: Reports: Neuropathy, Peripheral Endocrine/Metabolic History: Reports: Diabetes, Type II Hematologic History: Reports: Anemia Oncologic (Cancer) History: Reports: Colon Dermatologic History: Reports: Other (See Below) Other Dermatologic History: actinic keratosis, skin lesion, cryosurgery - Past Surgical History HEENT Surgical History: Reports: Cataract Surgery Cardiovascular Surgical History: Reports: AAA repair, Coronary Artery Bypass GI Surgical History: Reports: Appendectomy, Colonoscopy, EGD, Other (See Below) Musculoskeletal Surgical History: Reports: Other (See Below) Social & Family History - Family History Family Medical History: Noncontributory - Tobacco Use Smoking Status *Q: Former Smoker Years of Tobacco use: 40 Used Tobacco, but Quit: Yes Month Tobacco Last Used: 12 yrs Second Hand Smoke Exposure: No - Caffeine Use Caffeine Use: Reports: Coffee, Soda, Tea - Alcohol Use Days Per Week of Alcohol Use: 0 - Recreational Drug Use Recreational Drug Use: No - Living Situation & Occupation Occupation: Retired ED ROS GENERAL - Review of Systems Review Of Systems: See Below Constitutional: Denies: Fever, Chills, Decreased Appetite Respiratory: Reports: No Symptoms Cardiovascular: Reports: No Symptoms GI/Abdominal: Denies: Abdominal Pain, Nausea, Vomiting : Reports: Dysuria, Urinary Retention ED EXAM, RENAL/ - Physical Exam Exam: See Below Exam Limited By: No Limitations General Appearance: Alert, WD/WN, No Apparent Distress Ears: Hearing Loss Nose: Normal Inspection Throat/Mouth: Normal Voice, No Airway Compromise Neck: Normal Inspection, Supple Respiratory/Chest: No Respiratory Distress, Lungs Clear, Normal Breath Sounds, No Accessory Muscle Use Cardiovascular: Normal Peripheral Pulses, Regular Rate, Rhythm GI/Abdominal: Normal Bowel Sounds, Soft, Non-Tender, No Organomegaly, No Distention (Male) Exam: Circumcised, Other (grewal catheter in place with no bleeding/ discharge/urine from urethra meatus. ) Rectal (Males) Exam: Deferred Neurological: Alert, Oriented, Normal Cognition Psychiatric: Normal Affect, Normal Mood Skin Exam: Warm, Dry, Intact, Normal Color Course - Vital Signs Last Recorded V/S: Last Vital Signs Temp 98.5 F 12/23/16 17:48 Pulse 72 12/23/16 17:48 Resp 20 12/23/16 17:48 BP 122/72 12/23/16 17:48 Pulse Ox 95 12/23/16 17:48 - Orders/Labs/Meds Orders: Active Orders 24 hr Category Date Time Status Grewal Catheter Insertion [Insert Urinary Catheter] [OM. Care 12/23/16 17:56 Ordered PC] Stat Urinary Catheter Assessment [RC] ASDIRECTED Care 12/23/16 17:59 Active Labs: Laboratory Tests 12/23/16 Range/Units 19:18 Urine Color Yellow (Yellow) Urine Appearance Slt cloudy H (Clear) Urine pH 6.0 (5.0-8.0) Ur Specific [place] 1.020 (1.005-1.030) Urine Protein 2+ H (Negative) Urine Glucose (UA) Negative (Negative) Urine Ketones Negative (Negative) Urine Occult Blood 3+ H (Negative) Urine Nitrite Positive H (Negative) Urine Bilirubin Negative (Negative) Urine Urobilinogen 0.2 (0.2-1.0) Ur Leukocyte Esterase 1+ H (Negative) Urine RBC 10-20 H (0-5) /hpf Urine WBC 75-100 H (0-5) /hpf Urine WBC Clumps Few (NOT SEEN) /hpf Ur Epithelial Cells 0-5 (0-5) /hpf Urine Bacteria Many H (FEW) /hpf Urine Mucus Not seen (FEW) /hpf Meds: Medications Discontinued Medications Generic Name Dose Route Start Last Admin Trade Name Freq PRN Reason Stop Dose Admin Azithromycin 500 mg 12/24/16 21:09 Zithromax PO 12/24/16 21:10 ONETIME ONE Ceftriaxone Sodium 1 gm/ 0 gm 12/23/16 21:15 Lidocaine HCl 2.1 ml IM Q24H CRISTIANO Doxycycline Hyclate 200 mg 12/23/16 21:01 Vibramycin PO 12/23/16 21:02 ONETIME ONE Lidocaine HCl 10 ml 12/23/16 19:30 12/23/16 19:35 Xylocaine 2% Jelly MUCMEM 12/23/16 19:31 10 ml ONETIME ONE Administration Nitrofurantoin Macrocrystals 200 mg 12/23/16 20:57 Macrobid PO 12/23/16 20:58 ONETIME ONE Nitrofurantoin Macrocrystals 200 mg 12/23/16 21:12 12/23/16 21:24 Macrobid PO 12/23/16 21:13 200 mg ONETIME ONE Administration - Re-Assessments/Exams Free Text/Narrative Re-Assessment/Exam: Grewal catheter changed out with no complications. UA grossly positive for infection. Patient has many allergies to antibiotics. Per patient he does not have history of reoccurring UTI's. Reviewed previous UA culture 12/06/2016 positive for Staphylococcus epidermidis. Sensitive to macrobid. Although this is not the best antibiotic choice patient is allergic to many of the medications this bug was sensitive to. We'll discharge the patient home with instructions and prescriptions for macrobid. Departure - Departure Time of Disposition: 21:14 Disposition: Home, Self-Care 01 Condition: good Clinical Impression: Urinary tract infection in male UTI (urinary tract infection) due to urinary indwelling catheter Qualifiers: Indwelling urinary catheter type: indwelling urethral catheter Encounter type: initial encounter Qualified Code(s): T83.511A - Infection and inflammatory reaction due to indwelling urethral catheter, initial encounter - Discharge Information Prescriptions: Nitrofurantoin Monohyd/M-Cryst [Macrobid 100 mg Capsule] 100 mg PO BID #20 capsule Instructions: Grewal Catheter Care, Adult, Urinary Tract Infection, Adult, Easy- to-Read Referrals: Oscar Chatman MD [Primary Care Provider] - Forms: ED Department Discharge Additional Instructions: Take the macrobid as prescribed. Push the fluids. Followup with PCP in 3 days for reevaluation. Return to the E.D. for any new or worsening symptoms. - My Orders Last 24 Hours: My Active Orders 12/23/16 17:56 Grewal Catheter Insertion [Insert Urinary Catheter] [OM.PC] Stat 12/23/16 17:59 Urinary Catheter Assessment [RC] ASDIRECTED - Assessment/Plan Last 24 Hours: My Active Orders 12/23/16 17:56 Grewal Catheter Insertion [Insert Urinary Catheter] [OM.PC] Stat 12/23/16 17:59 Urinary Catheter Assessment [RC] ASDIRECTED
[2016-12-23] MEDS ORDERED: Lidocaine 2% Jelly 10 ML Urojet MUCMEM ONE (19:30)
[2016-12-23] MEDS ORDERED: Nitrofurantoin Monohydrate/Macrocrystalline 100 MG Cap PO ONE ×2 (20:57→21:12)
[2016-12-23] MEDS ORDERED: Doxycycline 100 MG Cap PO ONE (21:01)
[2016-12-23] MEDS ORDERED: cefTRIAXone 1 GM, Lidocaine 1% 2.1 ML IM SCH ×2 (21:15)
[2016-12-24] MEDS ORDERED: Azithromycin 250 MG Tab PO ONE (21:09)
== END 2016-12-23 21:35 | disposition home or self-care (01) ==
LOC: JD.ED 17:28
DX: T83.511A Infection and inflammatory reaction due to indwelling urethral catheter, initial encounter (principal); N39.0 Urinary tract infection, site not specified; E78.00 Pure hypercholesterolemia, unspecified; J45.909 Unspecified asthma, uncomplicated; J44.9 Chronic obstructive pulmonary disease, unspecified; K21.9 Gastro-esophageal reflux disease without esophagitis; E11.9 Type 2 diabetes mellitus without complications; N28.9 Disorder of kidney and ureter, unspecified; Z88.1 Allergy status to other antibiotic agents; Z88.0 Allergy status to penicillin; Z88.8 Allergy status to other drugs, medicaments and biological substances; Z79.899 Other long term (current) drug therapy; Z98.49 Cataract extraction status, unspecified eye; Z90.49 Acquired absence of other specified parts of digestive tract; Z87.891 Personal history of nicotine dependence
CPT/HCPCS: 51702; 81001; 99284; A9270; 99283

== ENCOUNTER 2016-12-23 23:01 | Emergency (ER) | payer MEDICARE, BC ==
[2016-12-23 23:19] VITALS: BP 124/80
[2016-12-24] MEDS ORDERED: Tolterodine 2 MG Tab PO ONE (00:04)
--- NOTE | 2016-12-24 00:14 | EDM.PDOC ---
ED HPI GENERAL MEDICAL PROBLEM - General Chief Complaint: Genitourinary Problem Stated Complaint: LEAKING CATH Time Seen by Provider: 12/23/16 23:31 Source of Information: Reports: Patient History Limitations: Reports: No Limitations - History of Present Illness INITIAL COMMENTS - FREE TEXT/NARRATIVE: This is an 86-year-old male. He was seen here earlier this evening for a Sarmiento catheter change. He was found to have a UTI and placed on Macrobid. He went home and was doing fine until he developed some lower abdominal tightness and slight pain and he felt the need to urinate and then his urine came out around his catheter and he wet on himself. So he comes back to the ER because he wet on himself and his catheter is leaking. He denies any other acute symptoms at this time. - Related Data Allergies Allergy/AdvReac Type Severity Reaction Status Date / Time ampicillin Allergy Hives Verified 10/27/16 18:54 levofloxacin [From Levaquin] Allergy Rash Verified 10/27/16 18:54 Penicillins Allergy Hives Verified 10/27/16 18:54 tetracycline Allergy Cannot Verified 10/27/16 18:54 Remember atorvastatin [From Lipitor] AdvReac Body Aches Verified 10/27/16 18:54 lovastatin AdvReac Body Aches Verified 10/27/16 18:54 Home Meds: Home Meds Acetaminophen [Tylenol] 325 mg PO DAILY PRN 12/23/13 [History] Finasteride [Proscar] 5 mg PO DAILY 12/23/13 [History] Furosemide [Lasix] 20 mg PO DAILY 12/23/13 [History] [place]-3 Fatty Acids/Fish Oil [Cvs Fish Oil 1,000 mg Softgel] 1 each PO DAILY [History] Terazosin [Hytrin] 10 mg PO BEDTIME 12/23/13 [History] Albuterol [Proventil HFA] 2 inh INH ASDIRECTED PRN 07/10/16 [History] Albuterol [Take Home: Albuterol 0.083%, 4 Neb Pack] 1 inh NEB QID PRN 07/10/16 [ History] Calcium Carbonate/Vitamin D3 [Calcium Carb 500 MG] 500 10/01/16 [History] Cyanocobalamin (Vitamin B-12) [B-12] 1,000 mcg PO DAILY 10/01/16 [History] Metoprolol Succinate [Toprol XL] 12.5 mg PO DAILY 10/01/16 [History] Polyethylene Glycol 3350 [MiraLAX] 1 packet PO DAILY 10/01/16 [History] Pravastatin [Pravachol] 20 mg PO DAILY 10/01/16 [History] Prednisone [IJD: predniSONE] 20 mg PO ASDIRECTED #15 tab 10/01/16 [Rx] Nitrofurantoin Monohyd/M-Cryst [Macrobid 100 mg Capsule] 100 mg PO BID #20 capsule 12/23/16 [Rx] Tolterodine [Detrol] 2 mg PO BID #30 tab 12/24/16 [Rx] Past Medical History HEENT History: Reports: Cataract, Impaired Vision Other HEENT History: Wears glasses, dentures Cardiovascular History: Reports: Afib, Aneurysm, Bypass, Cardiomyopathy, High Cholesterol, Hypertension, [place], PTCA, Other (See Below) Other Cardiovascular History: carotid stenosis, dvt x2, Respiratory History: Reports: Asthma, COPD Gastrointestinal History: Reports: Diverticulosis, GERD, Other (See Below) Other Gastrointestinal History: increased bilirubin Genitourinary History: Reports: BPH, Retention, Urinary, Other (See Below) Other Genitourinary History: renal insufficiency, retention Musculoskeletal History: Reports: Other (See Below) Other Musculoskeletal History: rib fracture, degenrative joint disease, vertebral fracture, hand pain, stress fracture Neurological History: Reports: Neuropathy, Peripheral Endocrine/Metabolic History: Reports: Diabetes, Type II Hematologic History: Reports: Anemia Oncologic (Cancer) History: Reports: Colon Dermatologic History: Reports: Other (See Below) Other Dermatologic History: actinic keratosis, skin lesion, cryosurgery - Past Surgical History HEENT Surgical History: Reports: Cataract Surgery Cardiovascular Surgical History: Reports: AAA repair, Coronary Artery Bypass GI Surgical History: Reports: Appendectomy, Colonoscopy, EGD, Other (See Below) Musculoskeletal Surgical History: Reports: Other (See Below) Social & Family History - Family History Family Medical History: Noncontributory - Tobacco Use Smoking Status *Q: Former Smoker Years of Tobacco use: 40 Used Tobacco, but Quit: Yes Month Tobacco Last Used: 12 y rs Second Hand Smoke Exposure: No - Caffeine Use Caffeine Use: Reports: Coffee, Tea - Alcohol Use Days Per Week of Alcohol Use: 0 - Recreational Drug Use Recreational Drug Use: No - Living Situation & Occupation Occupation: Retired ED ROS GENERAL - Review of Systems Review Of Systems: See Below Constitutional: Denies: Fever, Chills HEENT: Reports: No Symptoms Respiratory: Reports: No Symptoms Cardiovascular: Reports: No Symptoms Endocrine: Reports: No Symptoms GI/Abdominal: Reports: Abdominal Pain : Reports: Pain, Urgency, Other (Catheter leaking) Musculoskeletal: Reports: No Symptoms Skin: Reports: No Symptoms Neurological: Reports: No Symptoms Psychiatric: Reports: No Symptoms Hematologic/Lymphatic: Reports: No Symptoms ED EXAM, RENAL/ - Physical Exam Exam: See Below Exam Limited By: No Limitations General Appearance: Alert, WD/WN, No Apparent Distress Ears: Normal External Exam Nose: Normal Inspection Throat/Mouth: Normal Inspection Head: Normocephalic Neck: Supple Respiratory/Chest: No Respiratory Distress GI/Abdominal: Soft, Other (No abdominal tenderness even in the lower abdomen there is no tenderness noted) (Male) Exam: Other (The catheter appears to be well placed and secure, there is no leaking of the catheter or around the catheter right now) Extremities: Normal Inspection Neurological: Alert, Oriented Psychiatric: Normal Affect, Normal Mood Skin Exam: Warm, Dry Course - Vital Signs Last Recorded V/S: Last Vital Signs Temp 99.4 F 12/23/16 23:16 Pulse 77 12/23/16 23:16 Resp 18 12/23/16 23:16 BP 124/80 12/23/16 23:16 Pulse Ox 94 L 12/23/16 23:16 - Orders/Labs/Meds Meds: Medications Discontinued Medications Generic Name Dose Route Start Last Admin Trade Name Rafael PRN Reason Stop Dose Admin Tolterodine Tartrate 2 mg 12/24/16 00:04 12/24/16 00:24 Detrol PO 12/24/16 00:05 2 mg ONETIME ONE Administration - Re-Assessments/Exams Free Text/Narrative Re-Assessment/Exam: 12/24/16 01:20 Patient has done fine there is no longer any lower abdominal pain and no leakage around the catheter. We got him dressed and there still was no leakage around the catheter we will let him go home. Departure - Departure Time of Disposition: 01:21 Disposition: Home, Self-Care 01 Condition: good Clinical Impression: Bladder spasms Malfunction of Sarmiento catheter Qualifiers: Encounter type: initial encounter Qualified Code(s): T83.011A - Breakdown ( mechanical) of indwelling urethral catheter, initial encounter - Discharge Information Prescriptions: Tolterodine [Detrol] 2 mg PO BID #30 tab Referrals: Oscar Chatman MD [Primary Care Provider] - Forms: ED Department Discharge Additional Instructions: Continue with Sarmiento catheter care, take the Detrol for the bladder spasms twice a day, once it seems like the bladder spasms have resolved then you may stop taking the Detrol, if the bladder spasms began again take the Detrol again, followup with your family doctor later this week for recheck, return to the ER if needed
== END 2016-12-24 01:38 | disposition home or self-care (01) ==
LOC: JD.ED 23:01
DX: T83.011A Breakdown (mechanical) of indwelling urethral catheter, initial encounter (principal); N32.89 Other specified disorders of bladder; J45.909 Unspecified asthma, uncomplicated; J44.9 Chronic obstructive pulmonary disease, unspecified; K21.9 Gastro-esophageal reflux disease without esophagitis; E78.00 Pure hypercholesterolemia, unspecified; Z88.1 Allergy status to other antibiotic agents; Z88.0 Allergy status to penicillin; Z88.8 Allergy status to other drugs, medicaments and biological substances; Z79.899 Other long term (current) drug therapy; Z98.49 Cataract extraction status, unspecified eye; Z90.49 Acquired absence of other specified parts of digestive tract; Z95.1 Presence of aortocoronary bypass graft; Z87.891 Personal history of nicotine dependence
CPT/HCPCS: 99283; A9270; 51702; 81001; 99284-25

== ENCOUNTER 2017-01-02 04:39 | Emergency (ER) | payer MEDICARE, BC ==
[2017-01-02 05:27] VITALS: BP 110/77
--- NOTE | 2017-01-02 05:44 | EDM.PDOC ---
ED HPI GENERAL MEDICAL PROBLEM - General Chief Complaint: Gastrointestinal Problem Stated Complaint: CONSTIPATED Time Seen by Provider: 01/02/17 05:44 - History of Present Illness INITIAL COMMENTS - FREE TEXT/NARRATIVE: 86-year-old male presents emergency room with constipation. Patient has not had a bowel movement in over 3 days. 2 days ago he had small watery stools. Because of water he stills he stopped his MiraLAX. Patient hasn' t had any fevers or chills no nausea or vomiting he just has some lower abdominal discomfort. Patient's had lots of problems with constipation in the past. Patient has no other complaints at this time. Lower Abdomen Pain Score (Numeric/FACES): 2 - Related Data Allergies Allergy/AdvReac Type Severity Reaction Status Date / Time ampicillin Allergy Hives Verified 01/02/17 05:26 levofloxacin [From Levaquin] Allergy Rash Verified 01/02/17 05:26 Penicillins Allergy Hives Verified 01/02/17 05:26 tetracycline Allergy Cannot Verified 01/02/17 05:26 Remember atorvastatin [From Lipitor] AdvReac Body Aches Verified 01/02/17 05:26 lovastatin AdvReac Body Aches Verified 01/02/17 05:26 Home Meds: Home Meds Acetaminophen [Tylenol] 325 mg PO DAILY PRN 12/23/13 [History] Finasteride [Proscar] 5 mg PO DAILY 12/23/13 [History] Furosemide [Lasix] 20 mg PO DAILY 12/23/13 [History] [place]-3 Fatty Acids/Fish Oil [Cvs Fish Oil 1,000 mg Softgel] 1 each PO DAILY [History] Albuterol [Proventil HFA] 2 inh INH ASDIRECTED PRN 07/10/16 [History] Albuterol [Take Home: Albuterol 0.083%, 4 Neb Pack] 1 inh NEB QID PRN 07/10/16 [ History] Cyanocobalamin (Vitamin B-12) [B-12] 1,000 mcg PO DAILY 10/01/16 [History] Metoprolol Succinate [Toprol XL] 12.5 mg PO DAILY 10/01/16 [History] Polyethylene Glycol 3350 [MiraLAX] 1 packet PO DAILY 10/01/16 [History] Pravastatin [Pravachol] 20 mg PO DAILY 10/01/16 [History] Calcium Carbonate [Tums] 2 tab PO DAILY 01/02/17 [History] Past Medical History HEENT History: Reports: Cataract, Impaired Vision Other HEENT History: Wears glasses, dentures Cardiovascular History: Reports: Afib, Aneurysm, Bypass, Cardiomyopathy, High Cholesterol, Hypertension, [place], PTCA, Other (See Below) Other Cardiovascular History: carotid stenosis, dvt x2, Respiratory History: Reports: Asthma, COPD Gastrointestinal History: Reports: Diverticulosis, GERD, Other (See Below) Other Gastrointestinal History: increased bilirubin Genitourinary History: Reports: BPH, Retention, Urinary, Other (See Below) Other Genitourinary History: renal insufficiency, retention Musculoskeletal History: Reports: Other (See Below) Other Musculoskeletal History: rib fracture, degenrative joint disease, vertebral fracture, hand pain, stress fracture Neurological History: Reports: Neuropathy, Peripheral Endocrine/Metabolic History: Reports: Diabetes, Type II Hematologic History: Reports: Anemia Oncologic (Cancer) History: Reports: Colon Dermatologic History: Reports: Other (See Below) Other Dermatologic History: actinic keratosis, skin lesion, cryosurgery - Past Surgical History HEENT Surgical History: Reports: Cataract Surgery Cardiovascular Surgical History: Reports: AAA repair, Coronary Artery Bypass GI Surgical History: Reports: Appendectomy, Colonoscopy, EGD, Other (See Below) Musculoskeletal Surgical History: Reports: Other (See Below) Social & Family History - Family History Family Medical History: Noncontributory - Tobacco Use Smoking Status *Q: Former Smoker Years of Tobacco use: 40 Used Tobacco, but Quit: Yes Month Tobacco Last Used: 12 y rs Second Hand Smoke Exposure: No - Caffeine Use Caffeine Use: Reports: Coffee, Tea - Alcohol Use Days Per Week of Alcohol Use: 0 - Recreational Drug Use Recreational Drug Use: No - Living Situation & Occupation Occupation: Retired ED ROS GENERAL - Review of Systems Review Of Systems: See Below Constitutional: Reports: No Symptoms HEENT: Reports: No Symptoms Respiratory: Reports: No Symptoms Cardiovascular: Reports: No Symptoms GI/Abdominal: Reports: Constipation. Denies: Abdominal Pain, Nausea, Other Neurological: Reports: No Symptoms ED EXAM, GI/ABD - Physical Exam Exam: See Below Exam Limited By: No Limitations General Appearance: Alert, No Apparent Distress Head: Atraumatic, Normocephalic Neck: Normal Inspection, Supple, Non-Tender, Full Range of Motion Respiratory/Chest: No Respiratory Distress, Lungs Clear, Normal Breath Sounds Cardiovascular: Regular Rate, Rhythm, No Edema, No Murmur GI/Abdominal: Normal Bowel Sounds, Soft, Other (No rebound or guarding he has a mild bilateral lower quadrant discomfort with palpation) Course - Vital Signs Last Recorded V/S: Last Vital Signs Temp 36.6 C 01/02/17 05:23 Pulse 94 01/02/17 05:23 Resp 16 01/02/17 05:23 BP 110/77 01/02/17 05:23 Pulse Ox 97 01/02/17 05:23 - Re-Assessments/Exams Free Text/Narrative Re-Assessment/Exam: 01/02/17 07:26 KUB showed large amount of stool. The patient received a soapsuds enema and had several very large BM. He feels much better at this time and is back to normal. Departure - Departure Time of Disposition: 07:27 Disposition: Home, Self-Care 01 Clinical Impression: Constipation by delayed colonic transit - Discharge Information Instructions: Constipation, Adult Referrals: Oscar Chatman MD [Primary Care Provider] - Forms: ED Department Discharge Additional Instructions: Return to the emergency room with any questions or problems. Use your MiraLAX every day. Push fluids.
--- NOTE | 2017-01-02 07:24 | CR ---
Abdomen: Supine view of the abdomen was obtained. Comparison: Previous abdominal x-ray of 09/28/16. Severe joint space narrowing is noted within the left hip. Orthopedic hardware is seen in the left hip affixing previous fracture. Vertebroplasty is noted within the lower lumbar spine. Aortoiliac stent is present. Diffuse vascular calcification is seen. Bowel gas pattern appears within normal limits. Impression: 1. Incidental findings. Diagnostic code #2
== END 2017-01-02 07:41 | disposition home or self-care (01) ==
LOC: JD.ED 04:39
DX: K59.01 Slow transit constipation (principal); E78.00 Pure hypercholesterolemia, unspecified; I48.91 Unspecified atrial fibrillation; Z95.1 Presence of aortocoronary bypass graft; K21.9 Gastro-esophageal reflux disease without esophagitis; E11.40 Type 2 diabetes mellitus with diabetic neuropathy, unspecified; Z88.1 Allergy status to other antibiotic agents; Z88.0 Allergy status to penicillin; Z88.8 Allergy status to other drugs, medicaments and biological substances; Z79.899 Other long term (current) drug therapy; Z86.2 Personal history of diseases of the blood and blood-forming organs and certain disorders involving the immune mechanism; Z98.49 Cataract extraction status, unspecified eye; Z90.49 Acquired absence of other specified parts of digestive tract; Z87.891 Personal history of nicotine dependence
CPT/HCPCS: 74000; 74000-26; 99282; 99283

== ENCOUNTER 2017-02-24 21:49 | Emergency (ER) | payer MEDICARE, BC ==
--- NOTE | 2017-02-24 23:08 | EDM.PDOC ---
ED HPI GENERAL MEDICAL PROBLEM - General Chief Complaint: Genitourinary Problem Stated Complaint: CATHETER Time Seen by Provider: 02/24/17 22:39 Source of Information: Reports: Patient History Limitations: Reports: No Limitations - History of Present Illness INITIAL COMMENTS - FREE TEXT/NARRATIVE: The patient is an 86-year-old male with a chief complaint of Sarmiento catheter problem. He states that a plastic piece of his Sarmiento catheter fell apart. He is otherwise feeling fine. No fevers. No abdominal pain or vomiting. No flank pain. No hematuria. Hasn't had the catheter changed in a while. - Related Data Allergies Allergy/AdvReac Type Severity Reaction Status Date / Time ampicillin Allergy Hives Verified 01/02/17 05:26 levofloxacin [From Levaquin] Allergy Rash Verified 01/02/17 05:26 Penicillins Allergy Hives Verified 01/02/17 05:26 tetracycline Allergy Cannot Verified 01/02/17 05:26 Remember atorvastatin [From Lipitor] AdvReac Body Aches Verified 01/02/17 05:26 lovastatin AdvReac Body Aches Verified 01/02/17 05:26 Home Meds: Home Meds Finasteride [Proscar] 5 mg PO DAILY 12/23/13 [History] Furosemide [Lasix] 20 mg PO DAILY 12/23/13 [History] Albuterol [Proventil HFA] 2 inh INH ASDIRECTED PRN 07/10/16 [History] Albuterol [Take Home: Albuterol 0.083%, 4 Neb Pack] 1 inh NEB QID PRN 07/10/16 [ History] Metoprolol Succinate [Toprol XL] 12.5 mg PO DAILY 10/01/16 [History] Pantoprazole [ProTONIX] 1 tab PO ACBREAKFAST 02/24/17 [History] Terazosin HCl [Terazosin] 1 tab PO BEDTIME 02/24/17 [History] Past Medical History HEENT History: Reports: Cataract, Impaired Vision Other HEENT History: Wears glasses, dentures Cardiovascular History: Reports: Afib, Aneurysm, Bypass, Cardiomyopathy, High Cholesterol, Hypertension, [place], PTCA, Other (See Below) Other Cardiovascular History: carotid stenosis, dvt x2, Respiratory History: Reports: Asthma, COPD Gastrointestinal History: Reports: Diverticulosis, GERD, Other (See Below) Other Gastrointestinal History: increased bilirubin Genitourinary History: Reports: BPH, Retention, Urinary, Other (See Below) Other Genitourinary History: renal insufficiency, retention Musculoskeletal History: Reports: Other (See Below) Other Musculoskeletal History: rib fracture, degenrative joint disease, vertebral fracture, hand pain, stress fracture Neurological History: Reports: Neuropathy, Peripheral Endocrine/Metabolic History: Reports: Diabetes, Type II Hematologic History: Reports: Anemia Oncologic (Cancer) History: Reports: Colon Dermatologic History: Reports: Other (See Below) Other Dermatologic History: actinic keratosis, skin lesion, cryosurgery - Past Surgical History HEENT Surgical History: Reports: Cataract Surgery Cardiovascular Surgical History: Reports: AAA Repair, Coronary Artery Bypass GI Surgical History: Reports: Appendectomy, Colonoscopy, EGD, Other (See Below) Musculoskeletal Surgical History: Reports: Other (See Below) Social & Family History - Family History Family Medical History: Noncontributory - Tobacco Use Smoking Status *Q: Former Smoker Years of Tobacco use: 40 Used Tobacco, but Quit: Yes Month Tobacco Last Used: 120 Second Hand Smoke Exposure: No - Caffeine Use Caffeine Use: Reports: Coffee - Alcohol Use Days Per Week of Alcohol Use: 0 - Recreational Drug Use Recreational Drug Use: No - Living Situation & Occupation Occupation: Retired ED ROS GENERAL - Review of Systems Review Of Systems: See Below Constitutional: Denies: Fever GI/Abdominal: Denies: Abdominal Pain : Denies: Flank Pain, Hematuria ED EXAM, RENAL/ - Physical Exam Exam: See Below Exam Limited By: No Limitations General Appearance: Alert, WD/WN, No Apparent Distress Throat/Mouth: Normal Voice Head: Atraumatic, Normocephalic Neck: Normal Inspection Respiratory/Chest: No Respiratory Distress GI/Abdominal: Soft, Non-Tender, No Distention. No: Rebound Back Exam: No: CVA Tenderness (L), CVA Tenderness (R) Neurological: Alert, No Motor/Sensory Deficits Course - Vital Signs Last Recorded V/S: Last Vital Signs Temp 36.3 C 02/24/17 22:02 Pulse 64 02/24/17 23:15 Resp 20 02/24/17 23:15 BP 135/70 02/24/17 23:15 Pulse Ox 97 02/24/17 23:15 - Orders/Labs/Meds Orders: Active Orders 24 hr Category Date Time Status Sarmiento Catheter Insertion [Insert Urinary Catheter] [OM. Care 02/24/17 22:45 Ordered PC] Q24H Urinary Catheter Assessment [RC] ASDIRECTED Care 02/24/17 22:39 Active - Re-Assessments/Exams Free Text/Narrative Re-Assessment/Exam: 02/24/17 23:19 Sarmiento replaced, draining well. Discussed need for PCP/urology f/u. Discussed return precautions, patient understood. Departure - Departure Time of Disposition: 23:07 Disposition: Home, Self-Care 01 Clinical Impression: Sarmiento catheter problem Qualifiers: Encounter type: initial encounter Qualified Code(s): T83.9XXA - Unspecified complication of genitourinary prosthetic device, implant and graft, initial encounter - Discharge Information Instructions: Sarmiento Catheter Care, Adult Referrals: Oscar Chatman MD [Primary Care Provider] - Forms: ED Department Discharge Additional Instructions: 1. Follow up with urologist of your choice for further care 2. Return to the ED if you have fever, abdominal pain, vomiting, or any other concerning symptoms - My Orders Last 24 Hours: My Active Orders 02/24/17 22:39 Urinary Catheter Assessment [RC] ASDIRECTED 02/24/17 22:45 Sarmiento Catheter Insertion [Insert Urinary Catheter] [OM.PC] Q24H - Assessment/Plan Last 24 Hours: My Active Orders 02/24/17 22:39 Urinary Catheter Assessment [RC] ASDIRECTED 02/24/17 22:45 Sarmiento Catheter Insertion [Insert Urinary Catheter] [OM.PC] Q24H
[2017-02-24 23:28] VITALS: BP 135/70
== END 2017-02-24 23:17 | disposition home or self-care (01) ==
LOC: JD.ED 21:49
DX: T83.018A Breakdown (mechanical) of other urinary catheter, initial encounter (principal); I11.9 Hypertensive heart disease without heart failure; I25.2 Old myocardial infarction; J45.909 Unspecified asthma, uncomplicated; J44.9 Chronic obstructive pulmonary disease, unspecified; E78.00 Pure hypercholesterolemia, unspecified; E11.42 Type 2 diabetes mellitus with diabetic polyneuropathy; Z86.2 Personal history of diseases of the blood and blood-forming organs and certain disorders involving the immune mechanism; Z98.49 Cataract extraction status, unspecified eye; Z95.5 Presence of coronary angioplasty implant and graft; Z90.49 Acquired absence of other specified parts of digestive tract; Z87.891 Personal history of nicotine dependence; Z98.890 Other specified postprocedural states; Z79.899 Other long term (current) drug therapy; Z88.0 Allergy status to penicillin; Z88.1 Allergy status to other antibiotic agents; Z88.8 Allergy status to other drugs, medicaments and biological substances
CPT/HCPCS: 51702; 99282; 99283-25

== ENCOUNTER 2017-03-18 10:19 | Emergency (ER) | payer MEDICARE, BC ==
[2017-03-18 10:31] VITALS: BP 118/66
--- NOTE | 2017-03-18 11:10 | EDM.PDOC ---
ED HPI GENERAL MEDICAL PROBLEM - General Chief Complaint: Genitourinary Problem Stated Complaint: CATHETER ISSUES Time Seen by Provider: 03/18/17 10:37 Source of Information: Reports: Patient, RN, RN Notes Reviewed History Limitations: Reports: Physical Impairment (Very hard of hearing) - History of Present Illness INITIAL COMMENTS - FREE TEXT/NARRATIVE: The patient has a chronic indwelling Sarmiento, he states, because of BPH. His current Sarmiento was changed about one month ago. He now presents with leaking of the tubing that began yesterday and is worse today. He denies any other complaints. The patient states that he is scheduled for a TURP on 04/05/2017, per Dr. Alavrez. The patient's PCP is Dr. Chatman. - Related Data Allergies Allergy/AdvReac Type Severity Reaction Status Date / Time ampicillin Allergy Hives Verified 03/18/17 10:31 levofloxacin [From Levaquin] Allergy Rash Verified 03/18/17 10:31 Penicillins Allergy Hives Verified 03/18/17 10:31 tetracycline Allergy Cannot Verified 03/18/17 10:31 Remember atorvastatin [From Lipitor] AdvReac Body Aches Verified 03/18/17 10:31 lovastatin AdvReac Body Aches Verified 03/18/17 10:31 Home Meds: Home Meds Finasteride [Proscar] 5 mg PO DAILY 12/23/13 [History] Furosemide [Lasix] 20 mg PO DAILY 12/23/13 [History] Albuterol [Proventil HFA] 2 inh INH ASDIRECTED PRN 07/10/16 [History] Albuterol [Take Home: Albuterol 0.083%, 4 Neb Pack] 1 inh NEB QID PRN 07/10/16 [ History] Metoprolol Succinate [Toprol XL] 12.5 mg PO DAILY 10/01/16 [History] Pantoprazole [ProTONIX] 1 tab PO ACBREAKFAST 02/24/17 [History] Terazosin HCl [Terazosin] 1 tab PO BEDTIME 02/24/17 [History] Past Medical History HEENT History: Reports: Cataract, Impaired Vision Other HEENT History: Wears glasses, dentures Cardiovascular History: Reports: Afib, Aneurysm, Blood Clots/VTE/DVT (x 2), CAD , Heart Failure, Hypertension, [place] (x 2) Respiratory History: Reports: COPD Gastrointestinal History: Reports: Diverticulosis, GERD Genitourinary History: Reports: BPH (Chronic indwelling Sarmiento) Neurological History: Reports: Neuropathy, Peripheral Endocrine/Metabolic History: Reports: Diabetes, Type II Hematologic History: Reports: Anemia Oncologic (Cancer) History: Reports: Colon Dermatologic History: Reports: Other (See Below) Other Dermatologic History: actinic keratosis, skin lesion, cryosurgery - Past Surgical History HEENT Surgical History: Reports: Cataract Surgery, Laser Surgery (bilateral) Cardiovascular Surgical History: Reports: AAA Repair (endograft), Coronary Artery Bypass (x 4 vessel) GI Surgical History: Reports: Appendectomy, Colonoscopy, EGD, Hernia, Inguinal ( bilateral), Other (See Below) (Hemicolectomy) Musculoskeletal Surgical History: Reports: Other (See Below) (Vertebroplasty, Laminectomy, Left hip pinning) Social & Family History - Family History Family Medical History: Noncontributory - Tobacco Use Smoking Status *Q: Former Smoker Years of Tobacco use: 60 Packs/Tins Daily: 4 Month Tobacco Last Used: Quit 2004 Second Hand Smoke Exposure: No - Caffeine Use Caffeine Use: Reports: Coffee - Alcohol Use Alcohol Use History: Yes Days Per Week of Alcohol Use: 0 Alcohol Use Frequency: Rarely - Recreational Drug Use Recreational Drug Use: No - Living Situation & Occupation Living situation: Reports: , with Spouse Occupation: Retired ED ROS GENERAL - Review of Systems Review Of Systems: See Below Constitutional: Reports: No Symptoms HEENT: Reports: No Symptoms Respiratory: Reports: No Symptoms Cardiovascular: Reports: No Symptoms Endocrine: Reports: No Symptoms GI/Abdominal: Reports: No Symptoms : Reports: No Symptoms Musculoskeletal: Reports: No Symptoms Skin: Reports: No Symptoms Neurological: Reports: No Symptoms Psychiatric: Reports: No Symptoms Hematologic/Lymphatic: Reports: No Symptoms Immunologic: Reports: No Symptoms ED EXAM, RENAL/ - Physical Exam Exam: See Below Exam Limited By: No Limitations General Appearance: Alert, WD/WN, No Apparent Distress Eye Exam: Bilateral Eye: Normal Inspection Ears: Normal External Exam, Hearing Grossly Normal Nose: Normal Inspection, No Blood Throat/Mouth: Normal Inspection, Normal Lips, Normal Voice, No Airway Compromise Head: Atraumatic, Normocephalic Neck: Normal Inspection, Full Range of Motion Respiratory/Chest: No Respiratory Distress, Lungs Clear, Normal Breath Sounds, No Accessory Muscle Use Cardiovascular: Normal Peripheral Pulses, Regular Rate, Rhythm, No Gallop, No JVD, No Murmur, No Rub GI/Abdominal: Normal Bowel Sounds, Soft, Non-Tender, No Organomegaly, No Distention, No Abnormal Bruit, No Mass (Male) Exam: Deferred Rectal (Males) Exam: Deferred Back Exam: Normal Inspection, Full Range of Motion. No: CVA Tenderness (L), CVA Tenderness (R) Extremities: Normal Inspection, Normal Range of Motion, No Pedal Edema, Normal Capillary Refill Neurological: Alert, Oriented, Normal Cognition, No Motor/Sensory Deficits Psychiatric: Normal Affect Skin Exam: Warm, Dry, Intact, Normal Color, No Rash Lymphatic: No Adenopathy Course - Vital Signs Last Recorded V/S: Last Vital Signs Temp 36.6 C 03/18/17 10:25 Pulse 86 03/18/17 10:25 Resp 20 03/18/17 10:25 BP 118/66 03/18/17 10:25 Pulse Ox 96 03/18/17 10:25 - Orders/Labs/Meds Orders: Active Orders 24 hr Category Date Time Status Urinary Catheter Assessment [RC] ASDIRECTED Care 03/18/17 11:01 Active Urinary Catheter Insertion [Insert Urinary Catheter] [ Care 03/18/17 11:00 Ordered OM.PC] Q24H - Re-Assessments/Exams Free Text/Narrative Re-Assessment/Exam: 03/18/17 11:05 The patient's catheter was leaking at the connection to the tubing. His catheter was replaced. Departure - Departure Time of Disposition: 11:10 Disposition: Home, Self-Care 01 Condition: Good Clinical Impression: Sarmiento catheter problem - Discharge Information Instructions: Sarmiento Catheter Care, Adult Referrals: Oscar Chatman MD [Primary Care Provider] - Nathan Alvarez MD [Physician] - Forms: ED Department Discharge Additional Instructions: You were seen in the emergency room for a leaking indwelling Sarmiento catheter. Your catheter was replaced. Continue to manage your catheter as you have been. Make sure that the bag is lower than you are while sleeping, so that urine does not backflow. Follow-up with Dr. Alvarez at your previously scheduled appointment on 2016. If any other problems, please do not hesitate to return to the ER. - My Orders Last 24 Hours: My Active Orders 03/18/17 11:00 Urinary Catheter Insertion [Insert Urinary Catheter] [OM.PC] Q24H 03/18/17 11:01 Urinary Catheter Assessment [RC] ASDIRECTED - Assessment/Plan Last 24 Hours: My Active Orders 03/18/17 11:00 Urinary Catheter Insertion [Insert Urinary Catheter] [OM.PC] Q24H 03/18/17 11:01 Urinary Catheter Assessment [RC] ASDIRECTED
== END 2017-03-18 11:25 | disposition home or self-care (01) ==
LOC: JD.ED 10:19
DX: T83.038A Leakage of other urinary catheter, initial encounter (principal); H54.7 Unspecified visual loss; I48.91 Unspecified atrial fibrillation; I25.10 Atherosclerotic heart disease of native coronary artery without angina pectoris; I50.9 Heart failure, unspecified; J44.9 Chronic obstructive pulmonary disease, unspecified; K21.9 Gastro-esophageal reflux disease without esophagitis; E11.9 Type 2 diabetes mellitus without complications; Z86.2 Personal history of diseases of the blood and blood-forming organs and certain disorders involving the immune mechanism; Z88.1 Allergy status to other antibiotic agents; Z88.0 Allergy status to penicillin; Z79.899 Other long term (current) drug therapy; Z87.891 Personal history of nicotine dependence
CPT/HCPCS: 51702; 51798; 99282; 99283-25

== ENCOUNTER 2017-06-28 02:04 | Emergency (ER) | payer MEDICARE, BC ==
[2017-06-28 02:13] VITALS: BP 114/69
--- NOTE | 2017-06-28 02:36 | EDM.PDOC ---
ED HPI GENERAL MEDICAL PROBLEM - General Chief Complaint: Abdominal Pain Stated Complaint: ABDOMINAL PAIN Time Seen by Provider: 06/28/17 02:30 - History of Present Illness INITIAL COMMENTS - FREE TEXT/NARRATIVE: 86-year-old male presents to the emergency room with abdominal pain. Patient gives a two-day history of worsening abdominal pain. This is some not associated with any vomiting he has some intermittent nausea. He has no constipation or diarrhea he's had 2 soft stools yesterday. Patient denies any fevers or chills. The patient has had frequent bouts of constipation in the past. The patient does not believe he is constipated at this time. Patient has had lots of urinary problems but asked her his TURP this is not been an issue. Patient denies any chest pain chest pressure breathing difficulties or shortness of breath. Middle Abdominal Pain Score (Numeric/FACES): 7 - Related Data Allergies Allergy/AdvReac Type Severity Reaction Status Date / Time ampicillin Allergy Hives Verified 03/18/17 10:31 levofloxacin [From Levaquin] Allergy Rash Verified 03/18/17 10:31 Penicillins Allergy Hives Verified 03/18/17 10:31 tetracycline Allergy Cannot Verified 03/18/17 10:31 Remember atorvastatin [From Lipitor] AdvReac Body Aches Verified 03/18/17 10:31 lovastatin AdvReac Body Aches Verified 03/18/17 10:31 Home Meds: Home Meds Finasteride [Proscar] 5 mg PO DAILY 12/23/13 [History] Furosemide [Lasix] 20 mg PO DAILY 12/23/13 [History] Albuterol [Proventil HFA] 2 inh INH ASDIRECTED PRN 07/10/16 [History] Albuterol [Take Home: Albuterol 0.083%, 4 Neb Pack] 1 inh NEB QID PRN 07/10/16 [ History] Metoprolol Succinate [Toprol XL] 12.5 mg PO DAILY 10/01/16 [History] Pantoprazole [ProTONIX] 1 tab PO ACBREAKFAST 02/24/17 [History] Terazosin HCl [Terazosin] 1 tab PO BEDTIME 02/24/17 [History] Acetaminophen [Tylenol] 325 mg PO BID PRN 06/28/17 [History] Calcium Carbonate [Tums] 500 mg PO BID 06/28/17 [History] Cyanocobalamin (Vitamin B-12) [Vitamin B-12] 1,000 mcg PO DAILY 06/28/17 [ History] Nitrofurantoin [place]/Macrocryst [Macrobid] 100 mg PO BID #14 cap 06/28/17 [Rx] [place]-3 Fatty Acids [Maxepa] 1,000 mg PO DAILY 06/28/17 [History] Past Medical History HEENT History: Reports: Cataract, Impaired Vision Other HEENT History: Wears glasses, dentures Cardiovascular History: Reports: Afib, Aneurysm, Blood Clots/VTE/DVT, CAD, Heart Failure, Hypertension, [place] Other Cardiovascular History: carotid stenosis, dvt x2, Respiratory History: Reports: COPD Gastrointestinal History: Reports: Diverticulosis, GERD Other Gastrointestinal History: increased bilirubin Genitourinary History: Reports: BPH Other Genitourinary History: renal insufficiency, retention, chronic grewal catheter Musculoskeletal History: Reports: Other (See Below) Other Musculoskeletal History: rib fracture, degenrative joint disease, vertebral fracture, hand pain, stress fracture Neurological History: Reports: Neuropathy, Peripheral Endocrine/Metabolic History: Reports: Diabetes, Type II Hematologic History: Reports: Anemia Oncologic (Cancer) History: Reports: Colon Dermatologic History: Reports: Other (See Below) Other Dermatologic History: actinic keratosis, skin lesion, cryosurgery - Past Surgical History HEENT Surgical History: Reports: Cataract Surgery, Laser Surgery Cardiovascular Surgical History: Reports: AAA Repair, Coronary Artery Bypass GI Surgical History: Reports: Appendectomy, Colonoscopy, EGD, Hernia, Inguinal, Other (See Below) Musculoskeletal Surgical History: Reports: Other (See Below) Social & Family History - Family History Family Medical History: Noncontributory - Tobacco Use Smoking Status *Q: Former Smoker Years of Tobacco use: 60 Packs/Tins Daily: 4 Used Tobacco, but Quit: Yes Month Tobacco Last Used: 2004 Second Hand Smoke Exposure: No - Caffeine Use Caffeine Use: Reports: Coffee - Alcohol Use Days Per Week of Alcohol Use: 0 - Recreational Drug Use Recreational Drug Use: No - Living Situation & Occupation Living situation: Reports: , with Spouse Occupation: Retired ED ROS GENERAL - Review of Systems Review Of Systems: See Below Constitutional: Reports: No Symptoms HEENT: Reports: No Symptoms Respiratory: Reports: No Symptoms Cardiovascular: Reports: No Symptoms Endocrine: Reports: No Symptoms GI/Abdominal: Reports: Abdominal Pain, Nausea. Denies: Constipation, Diarrhea, Vomiting : Reports: No Symptoms Musculoskeletal: Reports: No Symptoms Neurological: Reports: No Symptoms ED EXAM, GI/ABD - Physical Exam Exam: See Below Exam Limited By: No Limitations General Appearance: Alert, No Apparent Distress Head: Atraumatic, Normocephalic Neck: Normal Inspection, Supple, Non-Tender, Full Range of Motion. No: Lymphadenopathy (L), Lymphadenopathy (R), Thyromegaly Respiratory/Chest: No Respiratory Distress, Lungs Clear, Normal Breath Sounds Cardiovascular: Regular Rate, Rhythm, No Edema, No Murmur GI/Abdominal Exam: Normal Bowel Sounds, Soft, Other (Diffuse periumbilical discomfort and to a lesser degree left upper quadrant discomfort no rigidity rebound or guarding noted) Back Exam: Normal Inspection. No: CVA Tenderness (L), CVA Tenderness (R) Extremities: Normal Inspection, No Pedal Edema Neurological: Alert, Oriented, Normal Cognition Course - Vital Signs Last Recorded V/S: Last Vital Signs Temp 36.6 C 06/28/17 02:10 Pulse 85 06/28/17 02:10 Resp 16 06/28/17 02:10 BP 114/69 06/28/17 02:10 Pulse Ox 98 06/28/17 02:10 - Orders/Labs/Meds Orders: Active Orders 24 hr Category Date Time Status Abdomen 2V AP Flat Upright [CR] Stat Exams 06/28/17 02:37 Taken Abdomen Pelvis wo Cont [CT] Stat Exams 06/28/17 03:55 Taken CULTURE URINE [RM] Stat Lab 06/28/17 05:14 Ordered Sodium Chloride 0.9% [Normal Saline] 1,000 ml Med 06/28/17 03:45 Active IV ASDIRECTED Medication Orders Sodium Chloride (Normal Saline) 1,000 mls @ 125 mls/hr IV ASDIRECTED CRISTIANO Last Admin: 06/28/17 03:49 Dose: 125 mls/hr Labs: Laboratory Tests 06/28/17 06/28/17 06/28/17 Range/Units 02:45 02:55 02:55 WBC 4.94 (4.23-9.07) K/mm3 RBC 4.08 L (4.63-6.08) M/mm3 Hgb 11.5 L (13.7-17.5) gm/L Hct 36.1 L (40.1-51.0) % MCV 88.5 (79.0-92.2) fl MCH 28.2 (25.7-32.2) pg MCHC 31.9 L (32.2-35.5) g/dl RDW Std Deviation 45.2 H (35.1-43.9) fL Plt Count 165 (163-337) K/mm3 MPV 10.7 (9.4-12.3) fl Neutrophils % (Manual) 59 (40-60) % Band Neutrophils % 0 (0-10) % Lymphocytes % (Manual) 27 (20-40) % Atypical Lymphs % 0 % Monocytes % (Manual) 8 (2-10) % Eosinophils % (Manual) 5 (0.8-7.0) % Basophils % (Manual) 1 (0.2-1.2) Platelet Estimate Adequate RBC Morph Comment Normal Sodium 143 (136-145) mEq/L Potassium 4.6 (3.5-5.1) mEq/L Chloride 107 (98-107) mEq/L Carbon Dioxide 28 (21-32) mEq/L Anion Gap 12.6 (5-15) BUN 35 H (7-18) mg/dL Creatinine 2.0 H (0.7-1.3) mg/dL Est Cr Clr Drug Dosing 21.79 mL/min Estimated GFR (MDRD) 32 (>60) mL/min BUN/Creatinine Ratio 17.5 (14-18) Glucose 144 H (83-115) mg/dL Calcium 9.5 (8.5-10.1) mg/dL Total Bilirubin 0.9 (0.2-1.0) mg/dL AST 16 (15-37) U/L ALT 15 L (16-63) U/L Alkaline Phosphatase 89 (46-116) U/L Total Protein 7.0 (6.4-8.2) g/dl Albumin 3.3 L (3.4-5.0) g/dl Globulin 3.7 gm/dL Albumin/Globulin Ratio 0.9 L (1-2) Urine Color Dark yellow (Yellow) Urine Appearance Cloudy H (Clear) Urine pH 6.0 (5.0-8.0) Ur Specific [place] 1.020 (1.005-1.030) Urine Protein 2+ H (Negative) Urine Glucose (UA) Negative (Negative) Urine Ketones Negative (Negative) Urine Occult Blood 2+ H (Negative) Urine Nitrite Negative (Negative) Urine Bilirubin Negative (Negative) Urine Urobilinogen 0.2 (0.2-1.0) Ur Leukocyte Esterase 1+ H (Negative) Urine RBC 10-20 H (0-5) /hpf Urine WBC 40-50 H (0-5) /hpf Ur Epithelial Cells 0-5 (0-5) /hpf Urine Bacteria Few (FEW) /hpf Urine Mucus Not seen (FEW) /hpf Meds: Medications Generic Name Dose Route Start Last Admin Trade Name Freq PRN Reason Stop Dose Admin Sodium Chloride 1,000 mls @ 125 mls/hr 06/28/17 03:45 06/28/17 03:49 Normal Saline IV 125 mls/hr ASDIRECTED CRISTIANO Administration Discontinued Medications Generic Name Dose Route Start Last Admin Trade Name Freq PRN Reason Stop Dose Admin Nitrofurantoin Macrocrystals 100 mg 06/28/17 05:13 06/28/17 05:22 Macrobid PO 06/28/17 05:14 100 mg ONETIME ONE Administration Ondansetron HCl 4 mg 06/28/17 03:38 06/28/17 03:48 Zofran IVPUSH 06/28/17 03:39 4 mg ONETIME ONE Administration - Re-Assessments/Exams Free Text/Narrative Re-Assessment/Exam: 06/28/17 04:34 Labs nondiagnostic except he has a creatinine of 2.0 and GFR of 33. KUB and up bright were obtained that were suggestive of a possible small bowel obstruction the patient is not the best CT candidate as his creatinine is 2 and his GFR is 33 I did discuss this with Dr. Ferreira radiologist at [facility] who recommends getting a CT without IV or oral contrast. This was done this study is consistent with an incomplete mid to distal small bowel obstruction with a transition zone seen in the right to mid abdomen. Just prior to going over to CT the patient had a very large bowel movement and feels much better. The patient declines admission at this point, however he agrees to let me watch him for another hour or so to ensure that he is doing okay. 06/28/17 05:37 The patient is continuing to do just fine. His urinalysis is possibly suggestive of a urinary tract infection he'll be started on Macrobid urine culture set up. Patient will be discharged at this time. Departure - Departure Time of Disposition: 05:39 Disposition: Home, Self-Care 01 Clinical Impression: Resolved abdominal pain, UTI (urinary tract infection) - Discharge Information Prescriptions: Nitrofurantoin [place]/Macrocryst [Macrobid] 100 mg PO BID #14 cap Referrals: Oscar Chatman MD [Primary Care Provider] - Forms: ED Department Discharge Additional Instructions: Return to the emergency room with any questions problems worsening symptoms. Return in 12 hours if not better sooner if getting worse. Clear liquid diet for the next 12 hours then slowly advance as tolerated. You may take your routine medications during the next 12 hours. You been started on Macrobid this is an antibiotic for suspected urinary tract infection take one twice daily until all gone. Follow-up with your regular physician on Sunday if needed. - My Orders Last 24 Hours: My Active Orders 06/28/17 02:37 Abdomen 2V AP Flat Upright [CR] Stat 06/28/17 03:45 Sodium Chloride 0.9% [Normal Saline] 1,000 ml IV ASDIRECTED 06/28/17 03:55 Abdomen Pelvis wo Cont [CT] Stat 06/28/17 05:14 CULTURE URINE [RM] Stat - Assessment/Plan Last 24 Hours: My Active Orders 06/28/17 02:37 Abdomen 2V AP Flat Upright [CR] Stat 06/28/17 03:45 Sodium Chloride 0.9% [Normal Saline] 1,000 ml IV ASDIRECTED 06/28/17 03:55 Abdomen Pelvis wo Cont [CT] Stat 06/28/17 05:14 CULTURE URINE [RM] Stat
[2017-06-28] MEDS ORDERED: Ondansetron 4 MG/2 ML SDV IVPUSH ONE (03:38)
[2017-06-28] MEDS ORDERED: Sodium Chloride 0.9% 1,000 ML IV SCH (03:45)
[2017-06-28] MEDS ORDERED: Nitrofurantoin Monohydrate/Macrocrystalline 100 MG Cap PO ONE (05:13)
--- NOTE | 2017-06-29 14:35 | CR ---
Abdomen: Supine and upright views of the abdomen were obtained. Comparison: Previous abdominal x-ray of 01/02/17. Mildly dilated bowel is seen. Some of this appears to be colon as well as small bowel. Multiple air-fluid levels are seen on the upright view. Previous stenting is seen of the aortoiliac vessels. Severe degenerative change is noted within the left hip with orthopedic hardware affixing an old healed fracture within the left hip. No free air is seen. No soft tissue abnormality is seen. Metallic density is seen within the left abdomen which appears chronic. Vascular calcification is noted. Impression: 1. Mildly dilated bowel with air-fluid levels. Developing bowel obstruction is a possibility. 2. Other incidental findings. Diagnostic code #3 I agree with preliminary report issued by [facility] ([facility] report finalized on 06/28/17, 4:45 AM Central Time)
--- NOTE | 2017-06-29 17:05 | CT ---
CT abdomen and pelvis Technique: Multiple axial sections were obtained from above the dome of the diaphragm inferiorly through the pubic symphysis. Small amount of oral contrast is seen. No IV contrast is identified. Comparison: Prior abdominal x-ray performed earlier on the same day (2:56 AM). [facility] MRI abdomen of 01/02/14 is available. Findings: Dilated fluid-filled bowel is identified. This is mostly small bowel but also includes portions of colon. There appears to be a transition point within the small bowel within the pelvis with findings suspicious for early or partial distal small bowel obstruction. No etiology seen at this transition point and findings could represent adhesions. Mild thickening is seen of the posterior left pleura within the lung bases believed to be incidental. Noncontrast appearance of the liver and spleen appear within normal limits. Left adrenal mass is seen which contains calcifications. This is a stable finding from prior MRI of 01/02/14 and therefore felt to be benign. Kidneys show no hydronephrosis. Aortic aneurysm is seen with aortoiliac graft. No retroperitoneal adenopathy is seen. Pancreas is atrophied. No mesenteric abnormalities are seen. No pelvic mass or adenopathy is seen. Bony structures show degenerative change within the spine and within the left hip. Impression: 1. Dilated fluid-filled bowel which is mostly small bowel in location although fluid also seen throughout the colon. Findings most suspicious for partial or early distal small bowel obstruction most likely from adhesions. 2. Other incidental findings as described above. Diagnostic code #3 I agree with preliminary report issued by [facility] ([facility] report finalized on 06/28/17, 5:28 AM Central Time)
== END 2017-06-28 05:45 | disposition home or self-care (01) ==
LOC: JD.ED 02:04
DX: N39.0 Urinary tract infection, site not specified (principal); I11.0 Hypertensive heart disease with heart failure; I50.9 Heart failure, unspecified; J44.9 Chronic obstructive pulmonary disease, unspecified; K21.9 Gastro-esophageal reflux disease without esophagitis; E11.42 Type 2 diabetes mellitus with diabetic polyneuropathy; Z87.891 Personal history of nicotine dependence; Z79.899 Other long term (current) drug therapy; Z88.0 Allergy status to penicillin; Z88.1 Allergy status to other antibiotic agents; Z88.8 Allergy status to other drugs, medicaments and biological substances
CPT/HCPCS: 36415; 74020; 74176; 80053; 81001; 85025; 87086; 87088; 87186; 96361; 96374; 99285; A9270; J2405; J7040; 99284

== ENCOUNTER 2017-07-04 06:39 | Day surgery (SDC) | payer MEDICARE, BC ==
[~2017-07-04 06:39] MED LIST: Lactated Ringers 1,000 ML IV SCH; Lidocaine 1%/Sod Bicarbonate in NS 8.4% 1 ML Syringe PRN; Sodium Chloride 0.9% 10 ML Syringe FLUSH PRN
[2017-07-04] MEDS ORDERED: Lidocaine 1% 4 ML ONE (07:04)
[2017-07-04] MEDS ORDERED: Propofol 200 MG/20 ML SDV ONE ×2 (07:04→08:47)
[2017-07-04] MEDS ORDERED: fentaNYL 100 MCG/2 ML SDV ONE (07:05)
--- NOTE | 2017-07-04 07:38 | PCM.PREANE ---
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 ) Other: Reports: Diabetes, Neck Pain - Physical Assessment NPO Status Date: 07/03/17 NPO Status Time: 18:00 Pulse: 68 O2 Sat by Pulse Oximetry: 96 Respiratory Rate: 20 Blood Pressure: 110/74 Temperature: 37.3 C Weight: 70.307 kg ASA Class: 3 Mental Status: Alert & Oriented x3 Airway Class: Mallampati = 1 Dentition: Reports: Dentures Thyro-Mental Finger Breadths: 3 Mouth Opening Finger Breadths: 3 ROM/Head Extension: Full Lungs: Clear to Auscultation, Normal Respiratory Effort Cardiovascular: Regular Rate, Regular Rhythm - Allergies Allergies/Adverse Reactions: Allergies Allergy/AdvReac Type Severity Reaction Status Date / Time ampicillin Allergy Hives Verified 07/03/17 15:47 levofloxacin [From Levaquin] Allergy Rash Verified 07/03/17 15:47 Penicillins Allergy Hives Verified 07/03/17 15:47 tetracycline Allergy Cannot Verified 07/03/17 15:47 Remember atorvastatin [From Lipitor] AdvReac Body Aches Verified 07/03/17 15:47 lovastatin AdvReac Body Aches Verified 07/03/17 15:47 - Acknowledgements Anesthesia Type Planned: MAC Pt an Appropriate Candidate for the Planned Anesthesia: Yes Alternatives and Risks of Anesthesia Discussed w Pt/Guardian: Yes Pt/Guardian Understands and Agrees with Anesthesia Plan: Yes PreAnesthesia Questionnaire HEENT History: Reports: Cataract, Impaired Vision Other HEENT History: Wears glasses, dentures Cardiovascular History: Reports: Afib, Aneurysm, Blood Clots/VTE/DVT, CAD, Heart Failure, Hypertension, [place] Other Cardiovascular History: carotid stenosis, dvt x2, Respiratory History: Reports: COPD Gastrointestinal History: Reports: Diverticulosis, GERD Other Gastrointestinal History: increased bilirubin Genitourinary History: Reports: BPH Other Genitourinary History: renal insufficiency, retention, chronic grewal catheter 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 Musculoskeletal History: Reports: Other (See Below) Other Musculoskeletal History: rib fracture, degenrative joint disease, vertebral fracture, hand pain, stress fracture Neurological History: Reports: Neuropathy, Peripheral Psychiatric History: Reports: None Endocrine/Metabolic History: Reports: Diabetes, Type II Hematologic History: Reports: Anemia Immunologic History: Reports: None Oncologic (Cancer) History: Reports: Colon Dermatologic History: Reports: Other (See Below) Other Dermatologic History: actinic keratosis, skin lesion, cryosurgery - Past Surgical History Head Surgeries/Procedures: Reports: None HEENT Surgical History: Reports: Cataract Surgery, Laser Surgery Cardiovascular Surgical History: Reports: AAA Repair, Coronary Artery Bypass Respiratory Surgical History: Reports: None GI Surgical History: Reports: Appendectomy, Colonoscopy, EGD, Hernia, Inguinal, Other (See Below) Other GI Surgeries/Procedures: colon resection Female Surgical History: Reports: None Male Surgical History: Reports: None Endocrine Surgical History: Reports: None Neurological Surgical History: Reports: None Musculoskeletal Surgical History: Reports: Other (See Below) Other Musculoskeletal Surgeries/Procedures:: hip repair Oncologic Surgical History: Reports: None - SUBSTANCE USE Smoking Status *Q: Former Smoker Tobacco Use Within Last Twelve Months: Cigarettes Second Hand Smoke Exposure: No Days Per Week of Alcohol Use: 0 Recreational Drug Use History: No - HOME MEDS Home Medications: Home Meds Finasteride [Proscar] 5 mg PO DAILY 12/23/13 [History] Furosemide [Lasix] 20 mg PO DAILY 12/23/13 [History] Albuterol [Proventil HFA] 2 inh INH Q6H PRN 07/10/16 [History] Albuterol [Take Home: Albuterol 0.083%, 4 Neb Pack] 1 inh NEB QID PRN 07/10/16 [ History] Metoprolol Succinate [Toprol XL] 12.5 mg PO DAILY 10/01/16 [History] Pantoprazole [ProTONIX] 1 tab PO ACBREAKFAST 02/24/17 [History] Terazosin HCl [Terazosin] 1 tab PO BEDTIME 02/24/17 [History] Acetaminophen [Tylenol] 325 mg PO BID PRN 06/28/17 [History] Calcium Carbonate [Tums] 500 mg PO BID 06/28/17 [History] Cyanocobalamin (Vitamin B-12) [Vitamin B-12] 1,000 mcg PO DAILY 06/28/17 [ History] Nitrofurantoin [place]/Macrocryst [Macrobid] 100 mg PO BID #14 cap 06/28/17 [Rx] [place]-3 Fatty Acids [Maxepa] 1,000 mg PO DAILY 06/28/17 [History] - CURRENT (IN HOUSE) MEDS Current Meds: Current Medications Lactated Ringer's (Ringers, Lactated) 1,000 mls @ 125 mls/hr IV ASDIRECTED CRISTIANO Stop: 07/04/17 23:00 Lidocaine/Sodium Bicarbonate (Buffered Lidocaine 1% In Ns 8.4%) 0.25 ml .XX ONETIME PRN PRN Reason: Prior to IV Start Stop: 07/04/17 18:00 Sodium Chloride (Saline Flush) 10 ml FLUSH ASDIRECTED PRN PRN Reason: Keep Vein Open Stop: 07/04/17 18:00 Discontinued Medications Fentanyl (Sublimaze) Confirm Administered Dose 100 mcg .ROUTE .STK-MED ONE Stop: 07/04/17 07:06 Lidocaine HCl (Xylocaine-Mpf 1%) Confirm Administered Dose 4 mls @ as directed .ROUTE .STK-MED ONE Stop: 07/04/17 07:05 Propofol (Diprivan 20 Ml) Confirm Administered Dose 200 mg .ROUTE .STK-MED ONE Stop: 07/04/17 07:05
[2017-07-04] MEDS ORDERED: Dexamethasone 4 MG/ML 5 ML MDV ONE (08:51)
[2017-07-04] MEDS ORDERED: ePHEDrine/Normal Saline 25 MG/5 ML Syringe ONE (08:57)
--- NOTE | 2017-07-04 09:14 | PCM48HPAN ---
Post Anesthesia Note - EVALUATION WITHIN 48HRS OF ANESTHETIC Vital Signs in Normal Range: Yes Patient Participated in Evaluation: Yes Respiratory Function Stable: Yes Airway Patent: Yes Cardiovascular Function Stable: Yes Hydration Status Stable: Yes Pain Control Satisfactory: Yes Nausea and Vomiting Control Satisfactory: Yes Mental Status Recovered: Yes
--- NOTE | 2017-07-04 09:23 | PCM.OPNOTE ---
- General Post-Op/Procedure Note Date of Surgery/Procedure: 07/04/17 Operative Procedure(s): Egd with esophageal dilatation Findings: Tight stricture at 15cm. The esophagus was otherwise normal with LA grade A erosive esophagitis, no hiatal hernia and otherwise normal stomach and eaxamined duodenum. Pre Op Diagnosis: dysphagis with history of esophageal dilatations Post-Op Diagnosis: Stricture at 15 cm with successful dilatation Anesthesia Technique: MAC Primary Surgeon: Elias Lemon Anesthesia Provider: Shirin Becerra Complications: None Condition: Stable
[2017-07-04 10:10] VITALS: BP 121/60
== END 2017-07-04 10:05 | disposition home or self-care (01) ==
LOC: JD.SDS 06:39
PROVIDERS: ATTEND Surgery
DX: K22.2 Esophageal obstruction (principal); R33.8 Other retention of urine; N40.1 Benign prostatic hyperplasia with lower urinary tract symptoms; E11.22 Type 2 diabetes mellitus with diabetic chronic kidney disease; N18.9 Chronic kidney disease, unspecified; I50.9 Heart failure, unspecified; I13.0 Hypertensive heart and chronic kidney disease with heart failure and stage 1 through stage 4 chronic kidney disease, or unspecified chronic kidney disease; K21.9 Gastro-esophageal reflux disease without esophagitis; E11.42 Type 2 diabetes mellitus with diabetic polyneuropathy; M19.90 Unspecified osteoarthritis, unspecified site; I48.0 Paroxysmal atrial fibrillation; I25.2 Old myocardial infarction; Z86.718 Personal history of other venous thrombosis and embolism; Z87.891 Personal history of nicotine dependence; Z86.79 Personal history of other diseases of the circulatory system; Z85.038 Personal history of other malignant neoplasm of large intestine; Z88.0 Allergy status to penicillin; Z88.1 Allergy status to other antibiotic agents; Z88.8 Allergy status to other drugs, medicaments and biological substances; Z79.899 Other long term (current) drug therapy; Z95.1 Presence of aortocoronary bypass graft; Z96.0 Presence of urogenital implants; Z90.49 Acquired absence of other specified parts of digestive tract; Z98.890 Other specified postprocedural states
CPT/HCPCS: 43233; J1100; J3010; J7050; J7120; 00740; J2704

== ENCOUNTER 2017-11-22 17:36 | Emergency (ER) | payer MEDICARE, BC ==
--- NOTE | 2017-11-22 18:15 | EDM.PDOC ---
ED HPI GENERAL MEDICAL PROBLEM - General Chief Complaint: Upper Extremity Injury/Pain Stated Complaint: LUMP ON LEFT ARM Time Seen by Provider: 11/22/17 17:45 Source of Information: Reports: Patient History Limitations: Reports: No Limitations - History of Present Illness INITIAL COMMENTS - FREE TEXT/NARRATIVE: Patient is a 87-year-old male who presents to the ED complaining of mild discomfort and swelling to the left forearm where previous IV site was placed yesterday prior to biopsy of the right lung. Patient states yesterday with IV start he felt a little bit of swelling and lump present. When the IV was removed and on palpation today felt a additional area of slight swelling in small lump with underneath the skin. There is bruising noted within around this area with small area of faint redness. Again states pain is minimal. Yesterday there were doing a biopsy of the lung to ensure he does not have cancer. He is on no blood thinners for A. fib. He does have a history of blood clots but is on no anticoagulants, aspirin, and or NSAIDs since he had severe hematuria. Patient has had colon cancer in the past. He denies CP, SOB, pain extending up the arm, fever, and or redness extending up his arm. - Related Data Allergies Allergy/AdvReac Type Severity Reaction Status Date / Time ampicillin Allergy Hives Verified 11/22/17 17:43 levofloxacin [From Levaquin] Allergy Rash Verified 11/22/17 17:43 Penicillins Allergy Hives Verified 11/22/17 17:43 tetracycline Allergy Cannot Verified 11/22/17 17:43 Remember atorvastatin [From Lipitor] AdvReac Body Aches Verified 11/22/17 17:43 lovastatin AdvReac Body Aches Verified 11/22/17 17:43 Home Meds: Home Meds Finasteride [Proscar] 5 mg PO DAILY 12/23/13 [History] Furosemide [Lasix] 20 mg PO DAILY 12/23/13 [History] Albuterol [Proventil HFA] 2 inh INH Q6H PRN 07/10/16 [History] Albuterol [Take Home: Albuterol 0.083%, 4 Neb Pack] 1 inh NEB QID PRN 07/10/16 [ History] Metoprolol Succinate [Toprol XL] 12.5 mg PO DAILY 10/01/16 [History] Pantoprazole [ProTONIX] 1 tab PO ACBREAKFAST 02/24/17 [History] Terazosin HCl [Terazosin] 1 tab PO BEDTIME 02/24/17 [History] Acetaminophen [Tylenol] 325 mg PO BID PRN 06/28/17 [History] Calcium Carbonate [Tums] 500 mg PO BID 06/28/17 [History] Cyanocobalamin (Vitamin B-12) [Vitamin B-12] 1,000 mcg PO DAILY 06/28/17 [ History] Nitrofurantoin [place]/Macrocryst [Macrobid] 100 mg PO BID #14 cap 06/28/17 [Rx] [place]-3 Fatty Acids [Maxepa] 1,000 mg PO DAILY 06/28/17 [History] Past Medical History HEENT History: Reports: Cataract, Impaired Vision Other HEENT History: Wears glasses, dentures Cardiovascular History: Reports: Afib, Aneurysm, Blood Clots/VTE/DVT, CAD, Heart Failure, Hypertension, [place] Other Cardiovascular History: carotid stenosis, dvt x2, Respiratory History: Reports: COPD Gastrointestinal History: Reports: Diverticulosis, GERD Other Gastrointestinal History: increased bilirubin Genitourinary History: Reports: BPH Other Genitourinary History: renal insufficiency, retention, chronic grewal catheter 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 Musculoskeletal History: Reports: Other (See Below) Other Musculoskeletal History: rib fracture, degenrative joint disease, vertebral fracture, hand pain, stress fracture Neurological History: Reports: Neuropathy, Peripheral Psychiatric History: Reports: None Endocrine/Metabolic History: Reports: Diabetes, Type II Hematologic History: Reports: Anemia Immunologic History: Reports: None Oncologic (Cancer) History: Reports: Colon Dermatologic History: Reports: Other (See Below) Other Dermatologic History: actinic keratosis, skin lesion, cryosurgery - Past Surgical History Head Surgeries/Procedures: Reports: None HEENT Surgical History: Reports: Cataract Surgery, Laser Surgery Cardiovascular Surgical History: Reports: AAA Repair, Coronary Artery Bypass Respiratory Surgical History: Reports: None GI Surgical History: Reports: Appendectomy, Colonoscopy, EGD, Hernia, Inguinal, Other (See Below) Other GI Surgeries/Procedures: colon resection Male Surgical History: Reports: None Endocrine Surgical History: Reports: None Neurological Surgical History: Reports: None Musculoskeletal Surgical History: Reports: Other (See Below) Other Musculoskeletal Surgeries/Procedures:: hip repair Oncologic Surgical History: Reports: None Social & Family History - Family History Family Medical History: Noncontributory - Tobacco Use Smoking Status *Q: Former Smoker Years of Tobacco use: 60 Packs/Tins Daily: 4 Used Tobacco, but Quit: No Month/Year Tobacco Last Used: 2004 Second Hand Smoke Exposure: No - Caffeine Use Caffeine Use: Reports: Coffee - Alcohol Use Days Per Week of Alcohol Use: 0 - Recreational Drug Use Recreational Drug Use: No - Living Situation & Occupation Living situation: Reports: , with Spouse Occupation: Retired Review of Systems - Review of Systems Review Of Systems: ROS reveals no pertinent complaints other than HPI. ED EXAM, GENERAL - Physical Exam Exam: See Below Exam Limited By: No Limitations General Appearance: Alert, WD/WN, No Apparent Distress Ears: Hearing Grossly Normal Nose: Normal Inspection Throat/Mouth: Normal Voice, No Airway Compromise Neck: Normal Inspection, Supple Respiratory/Chest: No Respiratory Distress, No Accessory Muscle Use Cardiovascular: Normal Peripheral Pulses, Irregularly Irregular Peripheral Pulses: 4+: Radial (L) Extremities: Other (Distal left forearm: Bruising noted to old IV site with faint redness. WIth palpation small 0.25 cm moveable hematoma present with only faint pain.Utilized bedside ultrasound myself with small area of clot burden within the superfical vein suspected IV site. Suspect hematoma was caused with IV start and discontinuation. ) Neurological: Alert, Oriented, Normal Cognition, No Motor/Sensory Deficits Psychiatric: Normal Affect, Normal Mood Skin Exam: Warm, Dry Course - Vital Signs Last Recorded V/S: Last Vital Signs Temp 99.0 F 11/22/17 17:43 Pulse 77 11/22/17 17:43 Resp 20 11/22/17 17:43 BP Pulse Ox 97 11/22/17 17:43 - Re-Assessments/Exams Free Text/Narrative Re-Assessment/Exam: Utilize bedside ultrasound and found the patient has a small clot burden within and around the superficial vein from previous IV site. Patient has small hematoma under the skin from old IV site. NO antibiotics required. Will discharge patient home with instructions as documented. The patient remained hemodynamically stable while under my care in the E.D. I reviewed the patients care today and discussed the concerning symptoms for which to return to the E.D. with the patient/family. The patient/family verbalized understanding. All questions were answered. Departure - Departure Time of Disposition: 18:16 Disposition: Home, Self-Care 01 Condition: Good Clinical Impression: Thrombophlebitis of arm Hematoma of IV site Qualifiers: Encounter type: initial encounter Qualified Code(s): T82.898A - Other specified complication of vascular prosthetic devices, implants and grafts, initial encounter - Discharge Information Instructions: Hematoma, [id number] Referrals: Oscar Chatman MD [Primary Care Provider] - Forms: ED Department Discharge Additional Instructions: Apply warm compresses to the affected area, 30 minutes in duration, do this 4 times a day until bruising resolves. Followup with PCP this coming week for reevaluation as needed. Return to the E.D. if you develop any new or worsening symptoms as discussed.
== END 2017-11-22 18:45 | disposition home or self-care (01) ==
LOC: JD.ED 17:36
DX: T82.898A Other specified complication of vascular prosthetic devices, implants and grafts, initial encounter (principal); I80.8 Phlebitis and thrombophlebitis of other sites; I11.0 Hypertensive heart disease with heart failure; I50.9 Heart failure, unspecified; I25.2 Old myocardial infarction; E11.9 Type 2 diabetes mellitus without complications; Z88.1 Allergy status to other antibiotic agents; Z88.0 Allergy status to penicillin; Z88.8 Allergy status to other drugs, medicaments and biological substances; Z79.899 Other long term (current) drug therapy; Z87.891 Personal history of nicotine dependence; J93.9 Pneumothorax, unspecified; J94.8 Other specified pleural conditions; R91.1 Solitary pulmonary nodule
CPT/HCPCS: 71045; 71045-26; 99283

== ENCOUNTER 2018-04-14 20:57 | Emergency (ER) | payer MEDICARE, BC ==
[2018-04-14 21:22] VITALS: BP 130/81
--- NOTE | 2018-04-15 01:07 | EDM.PDOC ---
ED HPI GENERAL MEDICAL PROBLEM - General Chief Complaint: Gastrointestinal Problem Stated Complaint: CONSTIPATION Time Seen by Provider: 04/15/18 00:44 Source of Information: Reports: Patient History Limitations: Reports: Physical Impairment (Very hard of hearing - left hearing aids at home) - History of Present Illness INITIAL COMMENTS - FREE TEXT/NARRATIVE: The patient states that he has been constipated for 2 days. He has not tried any home enemas, but he took 2 chocolate laxatives yesterday, 04/14/2018, without relief. He denies having any nausea or emesis, and denies having any abdominal pain. He states that he has chronic constipation, and has received enemas in the ED in the past. The patient drove himself to the ED. The patient's PCP is Dr. Chatman. 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 (see below) Other Treatments BANK WORKER: chocolate laxative - Related Data Allergies Allergy/AdvReac Type Severity Reaction Status Date / Time ampicillin Allergy Hives Verified 04/14/18 21:22 levofloxacin [From Levaquin] Allergy Rash Verified 04/14/18 21:22 Penicillins Allergy Hives Verified 04/14/18 21:22 tetracycline Allergy Cannot Verified 04/14/18 21:22 Remember atorvastatin [From Lipitor] AdvReac Body Aches Verified 04/14/18 21:22 lovastatin AdvReac Body Aches Verified 04/14/18 21:22 Home Meds: Home Meds Finasteride [Proscar] 5 mg PO DAILY 12/23/13 [History] Furosemide [Lasix] 20 mg PO DAILY 12/23/13 [History] Albuterol [Proventil HFA] 2 inh INH Q6H PRN 07/10/16 [History] Albuterol [Take Home: Albuterol 0.083%, 4 Neb Pack] 1 inh NEB QID PRN 07/10/16 [ History] Metoprolol Succinate [Toprol XL] 12.5 mg PO DAILY 10/01/16 [History] Pantoprazole [ProTONIX] 1 tab PO ACBREAKFAST 02/24/17 [History] Terazosin HCl [Terazosin] 1 tab PO BEDTIME 02/24/17 [History] Acetaminophen [Tylenol] 325 mg PO BID PRN 06/28/17 [History] Calcium Carbonate [Tums] 500 mg PO BID 06/28/17 [History] Cyanocobalamin (Vitamin B-12) [Vitamin B-12] 1,000 mcg PO DAILY 06/28/17 [ History] Nitrofurantoin [place]/Macrocryst [Macrobid] 100 mg PO BID #14 cap 06/28/17 [Rx] [place]-3 Fatty Acids [Maxepa] 1,000 mg PO DAILY 06/28/17 [History] Past Medical History HEENT History: Reports: Hard of Hearing, Impaired Vision Other HEENT History: Wears glasses, dentures, hearing aids Cardiovascular History: Reports: Afib (paroxysmal), Aneurysm (AAA), Blood Clots/ VTE/DVT (DVT x 2), CAD, Heart Failure, Hypertension, [place] (x 2) Respiratory History: Reports: COPD Gastrointestinal History: Reports: Diverticulosis, GERD Genitourinary History: Reports: BPH, Retention, Urinary (chronic indwelling Sarmiento catheter) Musculoskeletal History: Reports: Fracture (Rib, vertebral) Neurological History: Reports: Neuropathy, Peripheral Endocrine/Metabolic History: Reports: Diabetes, Type II Hematologic History: Reports: Anemia Oncologic (Cancer) History: Reports: Colon - Past Surgical History HEENT Surgical History: Reports: Cataract Surgery, Laser Surgery (bilateral) Cardiovascular Surgical History: Reports: AAA Repair, Coronary Artery Bypass (x 4 vessel) GI Surgical History: Reports: Appendectomy, Colonoscopy, EGD, Hernia, Inguinal, Other (See Below) (Hemicolectomy for colon CA) Neurological Surgical History: Reports: Laminectomy (lumbar), Vertebroplasty Musculoskeletal Surgical History: Reports: Other (See Below) (Left hip pinning) Social & Family History - Family History Family Medical History: Noncontributory - Tobacco Use Smoking Status *Q: Former Smoker Years of Tobacco use: 60 Packs/Tins Daily: 4 Month/Year Tobacco Last Used: Quit 2004 - Caffeine Use Caffeine Use: Reports: Coffee - Alcohol Use Alcohol Use History: Yes Alcohol Use Frequency: Rarely - Recreational Drug Use Recreational Drug Use: No - Living Situation & Occupation Living situation: Reports: , with Spouse Occupation: Retired ED ROS GENERAL - Review of Systems Review Of Systems: ROS reveals no pertinent complaints other than HPI. ED EXAM, GI/ABD - Physical Exam Exam: See Below Exam Limited By: No Limitations General Appearance: Alert, WD/WN, No Apparent Distress Eyes: Bilateral: Normal Appearance, EOMI Ears: Normal External Exam, Hearing Loss Nose: Normal Inspection, No Blood Throat/Mouth: Normal Inspection, Normal Lips, Normal Voice, No Airway Compromise Head: Atraumatic, Normocephalic Neck: Normal Inspection, Full Range of Motion Respiratory/Chest: No Respiratory Distress, Lungs Clear, Normal Breath Sounds, No Accessory Muscle Use Cardiovascular: Normal Peripheral Pulses, Regular Rate, Rhythm, No Edema, No Gallop, No JVD, No Murmur, No Rub GI/Abdominal Exam: Normal Bowel Sounds, Soft, Non-Tender, No Organomegaly, No Distention, No Abnormal Bruit, No Mass, Pelvis Stable (Male) Exam: Deferred Rectal (Males) Exam: Deferred Back Exam: Normal Inspection, Full Range of Motion. No: CVA Tenderness (L), CVA Tenderness (R) Extremities: Normal Inspection, Normal Range of Motion, No Pedal Edema, Normal Capillary Refill Neurological: Alert, Oriented, Normal Cognition, No Motor/Sensory Deficits Psychiatric: Normal Affect Skin Exam: Warm, Dry, Intact, Normal Color, No Rash Course - Vital Signs Last Recorded V/S: Last Vital Signs Temp 36.7 C 04/14/18 21:19 Pulse 71 04/14/18 21:19 Resp 18 04/14/18 21:19 BP 130/81 04/14/18 21:19 Pulse Ox 97 04/14/18 21:19 - Re-Assessments/Exams Free Text/Narrative Re-Assessment/Exam: 04/15/18 01:01 Upright and supine radiographs of the abdomen were reviewed. There appears to be a considerable amount of stool in the ascending and descending colon, although I don't see any in the transverse colon. No free air seen. 2 metallic clips, likely cardiac, located just above the left hemidiaphragm, incidentally noted. Sternotomy wires incidentally seen. Prior aortoiliac artery stent is incidentally seen. Prior vertebral plasty or kyphoplasty concrete noted in L4, incidentally noted. Prior left hip nailing, with severe degenerative disease of the left hip, incidentally noted. Formal read per the Radiologist pending. 04/15/18 01:07 I have ordered mineral oil enemas until adequate relief. 04/15/18 02:15 Notified by Emma SANCHEZ that after one mineral oil enema and one soapsuds enema, the patient had a large bowel movement, and feels much better. He would like to go home. Departure - Departure Time of Disposition: 02:15 Disposition: Home, Self-Care 01 Condition: Good Clinical Impression: Constipation - Discharge Information *PRESCRIPTION DRUG MONITORING PROGRAM REVIEWED*: Not Applicable *COPY OF PRESCRIPTION DRUG MONITORING REPORT IN PATIENT CHRISTINE: Not Applicable Instructions: Constipation, Adult, [id number] Referrals: Oscar Chatman MD [Primary Care Provider] - Forms: ED Department Discharge Additional Instructions: You were seen in the emergency room for constipation for the past 2 days. You received a mineral oil enema and a soapsuds enema in the ER, with a good- sized bowel movement. We recommend that you start taking a bulk fiber laxative, such as Metamucil or MiraLAX, with plenty of water, on a regular basis, to help prevent constipation. If you develop constipation in the future, you can purchase [id number] enemas, such as saline enemas or mineral oil enemas, and perform them yourself at home. Follow-up with your PCP, Dr. Chatman, as needed. If any other problems, please do not hesitate to return to the ER.
[2018-04-15] MEDS ORDERED: Enoxaparin 80 MG/0.8 ML Syringe SUBCUT STA (01:11)
--- NOTE | 2018-04-15 07:41 | CR ---
Abdomen: Supine and upright views of the abdomen were obtained. Comparison: Prior abdominal x-ray of 06/28/17. Aortoiliac stent is noted. Severe joint space narrowing is noted within the left hip. Orthopedic hardware is seen within the left hip. Previous vertebroplasty is noted within L5. Vascular calcification is noted. Bowel gas pattern appears normal. No free air is identified. Impression: 1. Incidental findings. Nothing acute is appreciated on two-view abdominal x-ray. Diagnostic code #2
== END 2018-04-15 02:24 | disposition home or self-care (01) ==
LOC: JD.ED 20:57
DX: K59.00 Constipation, unspecified (principal); I11.0 Hypertensive heart disease with heart failure; I50.9 Heart failure, unspecified; I48.91 Unspecified atrial fibrillation; K21.9 Gastro-esophageal reflux disease without esophagitis; E11.40 Type 2 diabetes mellitus with diabetic neuropathy, unspecified; Z79.899 Other long term (current) drug therapy; Z88.1 Allergy status to other antibiotic agents; Z88.0 Allergy status to penicillin; Z88.8 Allergy status to other drugs, medicaments and biological substances
CPT/HCPCS: 74019; 74019-26; 99283

== ENCOUNTER 2018-08-29 07:57 | Day surgery (SDC) | payer MEDICARE, BC ==
[2018-08-29] MEDS ORDERED: Phenylephrine 2.5% Ophth Soln 15 ML Bot EYELF SCH (08:29)
--- NOTE | 2018-08-29 08:30 | PCM.PREANE ---
Preanesthetic Assessment - Anesthesia/Transfusion/Family Hx Anesthesia History: Prior Anesthesia Without Reaction Family History of Anesthesia Reaction: No Transfusion History: No Prior Transfusion(s) - Review of Systems General: Chills Pulmonary: Shortness of Breath Cardiovascular: No Symptoms Gastrointestinal: No Symptoms Neurological: No Symptoms Other: Reports: None - Physical Assessment NPO Status Date: 08/29/18 NPO Status Time: 05:00 Pulse: 65 O2 Sat by Pulse Oximetry: 95 Respiratory Rate: 16 Blood Pressure: 139/66 Temperature: 98.6 C ASA Class: 2 Mental Status: Alert & Oriented x3 Airway Class: Mallampati = 1 Dentition: Reports: Dentures (uppers and lowers) Thyro-Mental Finger Breadths: 3 Mouth Opening Finger Breadths: 3 ROM/Head Extension: Full Lungs: Clear to Auscultation, Normal Respiratory Effort Cardiovascular: Regular Rate, Regular Rhythm - Allergies Allergies/Adverse Reactions: Allergies Allergy/AdvReac Type Severity Reaction Status Date / Time ampicillin Allergy Hives Verified 08/28/18 13:15 levofloxacin [From Levaquin] Allergy Rash Verified 08/28/18 13:15 Penicillins Allergy Hives Verified 08/28/18 13:15 tetracycline Allergy Cannot Verified 08/28/18 13:15 Remember atorvastatin [From Lipitor] AdvReac Body Aches Verified 08/28/18 13:15 lovastatin AdvReac Body Aches Verified 08/28/18 13:15 - Anesthesia Plan Beta Maximiliano: Metoprolol Med Last Dose Date: 08/28/18 Med Last Dose Time: 05:00 - Acknowledgements Anesthesia Type Planned: MAC Pt an Appropriate Candidate for the Planned Anesthesia: Yes Alternatives and Risks of Anesthesia Discussed w Pt/Guardian: Yes Pt/Guardian Understands and Agrees with Anesthesia Plan: Yes PreAnesthesia Questionnaire HEENT History: Reports: Hard of Hearing, Impaired Vision Other HEENT History: Wears glasses, dentures, hearing aids Cardiovascular History: Reports: Afib (paroxysmal), Aneurysm (AAA), Blood Clots/ VTE/DVT (DVT x 2), CAD, Heart Failure, Hypertension, [place] (x 2) Other Cardiovascular History: carotid stenosis, dvt x2, Respiratory History: Reports: Asthma, COPD (inhaler PRN used yesterday), SOB ( pt states SOB comes and go) Gastrointestinal History: Reports: Diverticulosis, GERD Other Gastrointestinal History: increased bilirubin Genitourinary History: Reports: BPH, Retention, Urinary (chronic indwelling Sarmiento catheter) Other Genitourinary History: renal insufficiency, retention 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 Musculoskeletal History: Reports: Fracture (Rib, vertebral) Other Musculoskeletal History: rib fracture, degenrative joint disease, vertebral fracture, hand pain, stress fracture Neurological History: Reports: Neuropathy, Peripheral Psychiatric History: Reports: None Endocrine/Metabolic History: Reports: Diabetes, Type II (BS 127 @ 0400) Hematologic History: Reports: Anemia Immunologic History: Reports: None Oncologic (Cancer) History: Reports: Colon Dermatologic History: Reports: Other (See Below) Other Dermatologic History: actinic keratosis, skin lesion, cryosurgery - Past Surgical History HEENT Surgical History: Reports: Cataract Surgery, Laser Surgery (bilateral) Cardiovascular Surgical History: Reports: AAA Repair, Coronary Artery Bypass (x 4 vessel) GI Surgical History: Reports: Appendectomy, Colonoscopy, EGD, Hernia, Inguinal, Other (See Below) (Hemicolectomy for colon CA) Neurological Surgical History: Reports: Laminectomy (lumbar), Vertebroplasty Musculoskeletal Surgical History: Reports: Other (See Below) (Left hip pinning) - SUBSTANCE USE Smoking Status *Q: Former Smoker - HOME MEDS Home Medications: Home Meds Finasteride [Proscar] 5 mg PO DAILY 12/23/13 [History] Furosemide [Lasix] 20 mg PO DAILY 12/23/13 [History] Albuterol [Proventil HFA] 2 inh INH Q6H PRN 07/10/16 [History] Albuterol [Take Home: Albuterol 0.083%, 4 Neb Pack] 1 inh NEB QID PRN 07/10/16 [ History] Metoprolol Succinate [Toprol XL] 12.5 mg PO DAILY 10/01/16 [History] Pantoprazole [ProTONIX] 1 tab PO ACBREAKFAST 02/24/17 [History] Terazosin HCl [Terazosin] 1 tab PO BEDTIME 02/24/17 [History] Acetaminophen [Tylenol] 325 mg PO BID PRN 06/28/17 [History] Calcium Carbonate [Tums] 500 mg PO BID 06/28/17 [History] Cyanocobalamin (Vitamin B-12) [Vitamin B-12] 1,000 mcg PO DAILY 06/28/17 [ History] Nitrofurantoin [place]/Macrocryst [Macrobid] 100 mg PO BID #14 cap 06/28/17 [Rx] [place]-3 Fatty Acids [Maxepa] 1,000 mg PO DAILY 06/28/17 [History]
[2018-08-29] MEDS ORDERED: Lidocaine 1% with EPINEPHrine 1:100,000 20 ML MDV ONE (10:18)
[2018-08-29] MEDS: Phenylephrine 2.5% Ophth Soln 2 ML Bot EYELF SCH ×3 (10:21→10:31)
[2018-08-29] MEDS ORDERED: Tetracaine HCl/PF 0.5% 4 ML Bottle EYELF ONE (10:21)
[2018-08-29] MEDS ORDERED: Erythromycin Base 0.5% Ophth Oint 1 GM Tube ONE (11:06)
[2018-08-29 12:22] VITALS: BP 128/65
== END 2018-08-29 12:40 | disposition home or self-care (01) ==
LOC: JD.SDS 07:57
PROVIDERS: ATTEND Ophthalmology
DX: H11.002 Unspecified pterygium of left eye (principal); I10 Essential (primary) hypertension; E11.42 Type 2 diabetes mellitus with diabetic polyneuropathy; J44.9 Chronic obstructive pulmonary disease, unspecified; H91.90 Unspecified hearing loss, unspecified ear; I48.0 Paroxysmal atrial fibrillation; Z87.891 Personal history of nicotine dependence; Z79.899 Other long term (current) drug therapy; Z88.0 Allergy status to penicillin; Z88.1 Allergy status to other antibiotic agents; Z88.8 Allergy status to other drugs, medicaments and biological substances
CPT/HCPCS: 65426; A9270

== ENCOUNTER 2018-11-13 00:57 | Emergency (ER) | payer MEDICARE, BC ==
[2018-11-13 01:07] VITALS: BP 150/127
--- NOTE | 2018-11-13 01:08 | EDM.PDOC ---
ED HPI GENERAL MEDICAL PROBLEM - General Chief Complaint: Gastrointestinal Problem Stated Complaint: poss constipated Time Seen by Provider: 11/13/18 01:08 - History of Present Illness INITIAL COMMENTS - FREE TEXT/NARRATIVE: 88-year-old male returns emergency room thinking he is constipated. Patient has not had a BM in 3 days however he is having some gas and passes gas frequently. The patient uses Maalox. He has no nausea no vomiting and no significant abdominal discomfort. He is not having any chest pain chest pressure breathing difficulties or shortness of breath and denies any other complaints at this time - Related Data Allergies Allergy/AdvReac Type Severity Reaction Status Date / Time ampicillin Allergy Hives Verified 11/13/18 01:07 levofloxacin [From Levaquin] Allergy Rash Verified 11/13/18 01:07 Penicillins Allergy Hives Verified 11/13/18 01:07 tetracycline Allergy Cannot Verified 11/13/18 01:07 Remember atorvastatin [From Lipitor] AdvReac Body Aches Verified 11/13/18 01:07 lovastatin AdvReac Body Aches Verified 11/13/18 01:07 Home Meds: Home Meds Finasteride [Proscar] 5 mg PO DAILY 12/23/13 [History] Furosemide [Lasix] 20 mg PO DAILY 12/23/13 [History] Albuterol [Proventil HFA] 2 inh INH Q6H PRN 07/10/16 [History] Albuterol [Take Home: Albuterol 0.083%, 4 Neb Pack] 1 inh NEB QID PRN 07/10/16 [ History] Metoprolol Succinate [Toprol XL] 12.5 mg PO DAILY 10/01/16 [History] Pantoprazole [ProTONIX] 1 tab PO ACBREAKFAST 02/24/17 [History] Terazosin HCl [Terazosin] 1 tab PO BEDTIME 02/24/17 [History] Acetaminophen [Tylenol] 325 mg PO BID PRN 06/28/17 [History] Calcium Carbonate [Tums] 500 mg PO BID 06/28/17 [History] Cyanocobalamin (Vitamin B-12) [Vitamin B-12] 1,000 mcg PO DAILY 06/28/17 [ History] Nitrofurantoin [place]/Macrocryst [Macrobid] 100 mg PO BID #14 cap 11/23/17 [Rx] [place]-3 Fatty Acids [Maxepa] 1,000 mg PO DAILY 06/28/17 [History] Past Medical History HEENT History: Reports: Hard of Hearing, Impaired Vision Other HEENT History: Wears glasses, dentures, hearing aids Cardiovascular History: Reports: Afib (paroxysmal), Aneurysm (AAA), Blood Clots/ VTE/DVT (DVT x 2), CAD, Heart Failure, Hypertension, [place] (x 2) Other Cardiovascular History: carotid stenosis, dvt x2, Respiratory History: Reports: Asthma, COPD (inhaler PRN used yesterday), SOB ( pt states SOB comes and go) Gastrointestinal History: Reports: Diverticulosis, GERD Other Gastrointestinal History: increased bilirubin Genitourinary History: Reports: BPH, Retention, Urinary (chronic indwelling Sarmiento catheter) Other Genitourinary History: renal insufficiency, retention 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 Musculoskeletal History: Reports: Fracture (Rib, vertebral) Other Musculoskeletal History: rib fracture, degenrative joint disease, vertebral fracture, hand pain, stress fracture Neurological History: Reports: Neuropathy, Peripheral Psychiatric History: Reports: None Endocrine/Metabolic History: Reports: Diabetes, Type II (BS 127 @ 0400) Hematologic History: Reports: Anemia Immunologic History: Reports: None Oncologic (Cancer) History: Reports: Colon Dermatologic History: Reports: Other (See Below) Other Dermatologic History: actinic keratosis, skin lesion, cryosurgery - Past Surgical History HEENT Surgical History: Reports: Cataract Surgery, Laser Surgery (bilateral) Cardiovascular Surgical History: Reports: AAA Repair, Coronary Artery Bypass (x 4 vessel) GI Surgical History: Reports: Appendectomy, Colonoscopy, EGD, Hernia, Inguinal, Other (See Below) (Hemicolectomy for colon CA) Neurological Surgical History: Reports: Laminectomy (lumbar), Vertebroplasty Musculoskeletal Surgical History: Reports: Other (See Below) (Left hip pinning) Social & Family History - Family History Family Medical History: Noncontributory - Caffeine Use Caffeine Use: Reports: Coffee - Living Situation & Occupation Living situation: Reports: , with Spouse Occupation: Retired ED ROS GENERAL - Review of Systems Review Of Systems: See Below Constitutional: Reports: No Symptoms HEENT: Reports: No Symptoms Respiratory: Reports: No Symptoms Cardiovascular: Reports: No Symptoms GI/Abdominal: Reports: Constipation. Denies: Abdominal Pain, Diarrhea, Nausea, Vomiting : Reports: No Symptoms ED EXAM, GI/ABD - Physical Exam Exam: See Below Exam Limited By: No Limitations General Appearance: Alert, No Apparent Distress Respiratory/Chest: No Respiratory Distress, Lungs Clear, Normal Breath Sounds GI/Abdominal Exam: Soft, Non-Tender, No Distention. No: Distended, Guarding, Rigid, Rebound Course - Vital Signs Last Recorded V/S: Last Vital Signs Temp 36.6 C 11/13/18 01:04 Pulse 71 11/13/18 01:04 Resp 18 11/13/18 01:04 BP 150/127 H 11/13/18 01:04 Pulse Ox 96 11/13/18 01:04 - Orders/Labs/Meds Orders: Active Orders 24 hr Category Date Time Status Abdomen 2V AP Flat Upright [CR] Stat Exams 11/13/18 01:17 Taken - Re-Assessments/Exams Free Text/Narrative Re-Assessment/Exam: 11/13/18 01:44 X-ray examination of the abdomen shows no acute changes however he has fairly large accumulation of stool in the rectosigmoid region not too bad elsewhere. This seems to be worries having most of his symptoms so we'll send him home with a bottle of mag citrate and see if we can get him feeling a little bit better Departure - Departure Time of Disposition: 01:45 Disposition: Home, Self-Care 01 Clinical Impression: Constipation - Discharge Information Referrals: Oscar Chatman MD [Primary Care Provider] - Forms: ED Department Discharge Additional Instructions: Return to the emergency room with any questions problems worsening symptoms. Go home and drink a bottle of mag citrate it it drinks easier if it's cold. - My Orders Last 24 Hours: My Active Orders 11/13/18 01:17 Abdomen 2V AP Flat Upright [CR] Stat - Assessment/Plan Last 24 Hours: My Active Orders 11/13/18 01:17 Abdomen 2V AP Flat Upright [CR] Stat
[2018-11-13] MEDS ORDERED: Magnesium Citrate Solution 296 ML Bottle PO ONE (01:48)
--- NOTE | 2018-11-13 06:22 | CR ---
Abdomen: Supine and upright views of the abdomen were obtained. Comparison: Prior abdominal x-ray of 04/14/18. Bowel gas pattern is normal. Severe joint space narrowing is noted within the left hip with orthopedic hardware. Aortoiliac stent is seen. Previous vertebroplasty is noted within L4. Degenerative sclerosis is noted within the inferior sacroiliac joints. Impression: 1. Incidental findings. Nothing acute is seen. Diagnostic code #2
== END 2018-11-13 02:20 | disposition home or self-care (01) ==
LOC: JD.ED 00:57
DX: K59.00 Constipation, unspecified (principal); I48.91 Unspecified atrial fibrillation; I10 Essential (primary) hypertension; I50.9 Heart failure, unspecified; J44.9 Chronic obstructive pulmonary disease, unspecified; I25.10 Atherosclerotic heart disease of native coronary artery without angina pectoris; E11.42 Type 2 diabetes mellitus with diabetic polyneuropathy; K21.9 Gastro-esophageal reflux disease without esophagitis; I25.2 Old myocardial infarction; Z79.899 Other long term (current) drug therapy; Z88.1 Allergy status to other antibiotic agents; Z88.0 Allergy status to penicillin; Z88.8 Allergy status to other drugs, medicaments and biological substances
CPT/HCPCS: 74019; 99283; A9270; 99282

== ENCOUNTER 2018-12-01 15:15 | Emergency (ER) | payer MEDICARE, BC ==
[2018-12-01 15:34] VITALS: BP 150/71
--- NOTE | 2018-12-01 19:02 | EDM.PDOC ---
ED HPI GENERAL MEDICAL PROBLEM - General Chief Complaint: Abdominal Pain Stated Complaint: CLOGGED UP Time Seen by Provider: 12/01/18 15:52 Source of Information: Reports: Patient History Limitations: Reports: No Limitations - History of Present Illness INITIAL COMMENTS - FREE TEXT/NARRATIVE: Patient is a 88-year-old male who presents the ED complaining of constipation. States he has not had a bowel movement since yesterday. States he cannot push the stool out. He feels constipated. Notes his rectum is been sore with recent attempts to have a bowel movement. He does have a history of hemorrhoids. No bleeding present. No blood within his stool. He has no abdominal pain but notes that at times he does have some abdominal cramps and increased flatulence. He has been taking MiraLAX and regular basis up until 2 days ago since his stools are watery. He backed off on the MiraLAX and restarted today. In addition he states with starting to urinate he does have some dysuria. No burning sensation present. Denies any fever, nausea/vomiting, hematuria, and/or additional complaints. States she's had no recent changes to medications. Appetite has been good. Patient does state after having his prostate surgery the pain was starting to urinate is a common normality. Rectal Pain Score (Numeric/FACES): 5 - Related Data Allergies Allergy/AdvReac Type Severity Reaction Status Date / Time ampicillin Allergy Hives Verified 11/13/18 01:07 levofloxacin [From Levaquin] Allergy Rash Verified 11/13/18 01:07 Penicillins Allergy Hives Verified 11/13/18 01:07 tetracycline Allergy Cannot Verified 11/13/18 01:07 Remember atorvastatin [From Lipitor] AdvReac Body Aches Verified 11/13/18 01:07 lovastatin AdvReac Body Aches Verified 11/13/18 01:07 Home Meds: Home Meds Finasteride [Proscar] 5 mg PO DAILY 12/23/13 [History] Furosemide [Lasix] 20 mg PO DAILY 12/23/13 [History] Albuterol [Proventil HFA] 2 inh INH Q6H PRN 07/10/16 [History] Albuterol [Take Home: Albuterol 0.083%, 4 Neb Pack] 1 inh NEB QID PRN 07/10/16 [ History] Metoprolol Succinate [Toprol XL] 12.5 mg PO DAILY 10/01/16 [History] Pantoprazole [ProTONIX] 1 tab PO ACBREAKFAST 02/24/17 [History] Terazosin HCl [Terazosin] 1 tab PO BEDTIME 02/24/17 [History] Acetaminophen [Tylenol] 325 mg PO BID PRN 06/28/17 [History] Calcium Carbonate [Tums] 500 mg PO BID 06/28/17 [History] Cyanocobalamin (Vitamin B-12) [Vitamin B-12] 1,000 mcg PO DAILY 06/28/17 [ History] Nitrofurantoin [place]/Macrocryst [Macrobid] 100 mg PO BID #14 cap 06/28/17 [Rx] [place]-3 Fatty Acids [Maxepa] 1,000 mg PO DAILY 06/28/17 [History] Cephalexin [Keflex] 500 mg PO QID #28 capsule 12/01/18 [Rx] Past Medical History HEENT History: Reports: Hard of Hearing, Impaired Vision Other HEENT History: Wears glasses, dentures, hearing aids Cardiovascular History: Reports: Afib, Aneurysm, Blood Clots/VTE/DVT, CAD, Heart Failure, Hypertension, [place] Other Cardiovascular History: carotid stenosis, dvt x2, Respiratory History: Reports: Asthma, COPD, SOB Gastrointestinal History: Reports: Diverticulosis, GERD Other Gastrointestinal History: increased bilirubin Genitourinary History: Reports: BPH, Retention, Urinary Other Genitourinary History: renal insufficiency, retention 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 Musculoskeletal History: Reports: Fracture Other Musculoskeletal History: rib fracture, degenrative joint disease, vertebral fracture, hand pain, stress fracture Neurological History: Reports: Neuropathy, Peripheral Psychiatric History: Reports: None Endocrine/Metabolic History: Reports: Diabetes, Type II Hematologic History: Reports: Anemia Immunologic History: Reports: None Oncologic (Cancer) History: Reports: Colon Dermatologic History: Reports: Other (See Below) Other Dermatologic History: actinic keratosis, skin lesion, cryosurgery - Past Surgical History Head Surgeries/Procedures: Reports: None HEENT Surgical History: Reports: Cataract Surgery, Laser Surgery Cardiovascular Surgical History: Reports: AAA Repair, Coronary Artery Bypass GI Surgical History: Reports: Appendectomy, Colonoscopy, EGD, Hernia, Inguinal, Other (See Below) Neurological Surgical History: Reports: Laminectomy, Vertebroplasty Musculoskeletal Surgical History: Reports: Other (See Below) Social & Family History - Family History Family Medical History: Noncontributory - Tobacco Use Smoking Status *Q: Former Smoker Used Tobacco, but Quit: Yes Month/Year Tobacco Last Used: 15 yrs - Caffeine Use Caffeine Use: Reports: Coffee, Soda, Tea - Living Situation & Occupation Living situation: Reports: , with Spouse Occupation: Retired ED ROS GENERAL - Review of Systems Review Of Systems: ROS reveals no pertinent complaints other than HPI. ED EXAM, GI/ABD - Physical Exam Exam: See Below Exam Limited By: No Limitations General Appearance: Alert, WD/WN, No Apparent Distress Ears: Hearing Grossly Normal Nose: Normal Inspection Throat/Mouth: Normal Inspection, Normal Voice, No Airway Compromise Head: Atraumatic, Normocephalic Neck: Normal Inspection Respiratory/Chest: No Respiratory Distress, Lungs Clear, Normal Breath Sounds, No Accessory Muscle Use Cardiovascular: Normal Peripheral Pulses, Regular Rate, Rhythm GI/Abdominal Exam: Normal Bowel Sounds, Soft, Non-Tender, No Organomegaly, No Distention (Male) Exam: Deferred Rectal (Males) Exam: Fecal Impaction, Heme - Stool, Hemorrhoids, Tenderness. No : Black Stool, Bloody Stool, Decreased Rectal Tone Back Exam: Normal Inspection. No: CVA Tenderness (L), CVA Tenderness (R) Extremities: Normal Inspection Neurological: Alert, Oriented, CN II-XII Intact, Normal Cognition, No Motor/ Sensory Deficits Psychiatric: Normal Affect, Normal Mood Skin Exam: Warm, Dry, Intact Course - Vital Signs Last Recorded V/S: Last Vital Signs Temp 97.7 F 12/01/18 15:32 Pulse 58 L 12/01/18 15:32 Resp 20 12/01/18 15:32 BP 150/71 H 12/01/18 15:32 Pulse Ox 96 12/01/18 15:32 - Orders/Labs/Meds Orders: Active Orders 24 hr Category Date Time Status Enema [RC] ASDIRECTED Care 12/01/18 17:37 Active Fecal Occult Blood Collection [RC] ASDIRECTED Care 12/01/18 16:04 Active Abdomen 2V AP Flat Upright [CR] Stat Exams 12/01/18 16:20 Taken CULTURE URINE [RM] Stat Lab 12/01/18 19:00 Received Labs: Laboratory Tests 12/01/18 Range/Units 19:03 Urine Color Yellow (Yellow) Urine Appearance Clear (Clear) Urine pH 7.5 (5.0-8.0) Ur Specific [place] 1.020 (1.005-1.030) Urine Protein 1+ H (Negative) Urine Glucose (UA) Negative (Negative) Urine Ketones Negative (Negative) Urine Occult Blood 2+ H (Negative) Urine Nitrite Negative (Negative) Urine Bilirubin Negative (Negative) Urine Urobilinogen 0.2 (0.2-1.0) Ur Leukocyte Esterase 1+ H (Negative) Urine RBC 10-20 H (0-5) /hpf Urine WBC 5-10 H (0-5) /hpf Ur Epithelial Cells Not seen (0-5) /hpf Urine Bacteria Rare (FEW) /hpf Urine Mucus Not seen (FEW) /hpf Meds: Medications Discontinued Medications Generic Name Dose Route Start Last Admin Trade Name Freq PRN Reason Stop Dose Admin Cephalexin 500 mg 12/01/18 19:30 12/01/18 19:40 Keflex PO 12/01/18 19:31 500 mg ONETIME ONE Administration - Re-Assessments/Exams Free Text/Narrative Re-Assessment/Exam: On examination patient had no abdominal discomfort with palpation. Digital rectal exam did reveal increased stool within his rectal vault. He has complained of some mild dysuria with starting when he urinates. He has no burning sensation. Oral retention enema has been ordered along with a urinalysis. 1846 Reassessment, patient recently had the oil retention enema administered. He has not urinated for nursing staff. 12/01/18 19:15 per nursing staff patient did not produce much of a BM after the oil retention enema. Urine sample has been sent off. 12/01/18 19:28 UA indicated UTI. Urine culture obtained. Patient will be discharged with prescription for Keflex 500mg PO QID x 7 days. Patient has an allergy to penicillins and gets hives. No anaphylaxis. Discuss results of the UA with the patient. Return precautions were discussed with the patient. Patient had no questions or concerns and agreed with plan. Discharge instructions as documented. Departure - Departure Time of Disposition: 19:30 Disposition: Home, Self-Care 01 Condition: Good Clinical Impression: Urinary tract infection Qualifiers: Urinary tract infection type: acute cystitis Hematuria presence: with hematuria Qualified Code(s): N30.01 - Acute cystitis with hematuria Constipation Qualifiers: Constipation type: unspecified constipation type Qualified Code(s): K59.00 - Constipation, unspecified - Discharge Information Prescriptions: Cephalexin [Keflex] 500 mg PO QID #28 capsule Instructions: High-Fiber Diet, Constipation, Adult, [id number], Urinary Tract Infection, Adult, [id number] Referrals: Oscar Chatman MD [Primary Care Provider] - Forms: ED Department Discharge Additional Instructions: Take the Keflex as prescribed. Push the fluids. In addition take MiraLAX one capful every day with copious amounts of water. Increase your fiber intake with fruits and vegetables. Follow-up with PCP in the next 3to5 days for reevaluation. See your PCP at conclusion of antibiotic therapy to ensure resolution of UTI. Please return back to the ED if you develop any new or worsening symptoms. - My Orders Last 24 Hours: My Active Orders 12/01/18 16:04 Fecal Occult Blood Collection [RC] ASDIRECTED 12/01/18 16:20 Abdomen 2V AP Flat Upright [CR] Stat 12/01/18 17:37 Enema [RC] ASDIRECTED 12/01/18 19:00 CULTURE URINE [RM] Stat - Assessment/Plan Last 24 Hours: My Active Orders 12/01/18 16:04 Fecal Occult Blood Collection [RC] ASDIRECTED 12/01/18 16:20 Abdomen 2V AP Flat Upright [CR] Stat 12/01/18 17:37 Enema [RC] ASDIRECTED 12/01/18 19:00 CULTURE URINE [RM] Stat
[2018-12-01] MEDS ORDERED: Cephalexin 500 MG Cap PO ONE (19:30)
--- NOTE | 2018-12-02 07:03 | CR ---
Abdomen: Supine and upright views of the abdomen were obtained. Comparison: Prior abdominal x-ray of 11/13/18. Orthopedic hardware is noted within the left hip. Severe joint space narrowing is noted with the left hip. Vascular calcification is noted. Aortoiliac stent is present. Mild compression deformities are noted within the spine which appear stable. Bowel gas pattern is normal. No soft tissue abnormality is seen. No free air is seen. Impression: 1. Findings as noted above. Nothing acute is appreciated on two-view abdominal x-ray. Diagnostic code #2
== END 2018-12-01 19:45 | disposition home or self-care (01) ==
LOC: JD.ED 15:15
DX: N30.01 Acute cystitis with hematuria (principal); K59.00 Constipation, unspecified; I48.91 Unspecified atrial fibrillation; I50.9 Heart failure, unspecified; I11.0 Hypertensive heart disease with heart failure; I25.2 Old myocardial infarction; K21.9 Gastro-esophageal reflux disease without esophagitis; E11.9 Type 2 diabetes mellitus without complications; Z88.0 Allergy status to penicillin; Z88.1 Allergy status to other antibiotic agents; Z79.899 Other long term (current) drug therapy; Z87.891 Personal history of nicotine dependence
CPT/HCPCS: 74019; 81001; 87086; 87088; 99283; A9270

== ENCOUNTER 2019-03-29 11:31 | Emergency (ER) | payer MEDICARE, BC ==
[2019-03-29] MEDS ORDERED: Nitroglycerin/D5W 25 MG/250 ML BOTTLE IV SCH (11:45)
[2019-03-29] MEDS ORDERED: Albuterol/Ipratropium 3.0-0.5 MG/3 ML Neb Soln NEB ONE (11:45)
[2019-03-29] MEDS ORDERED: Aspirin 81 MG Tab.Chew PO ONE (11:45)
[2019-03-29 11:47] VITALS: BP 153/97
--- NOTE | 2019-03-29 11:47 | EDM.PDOC ---
ED HPI GENERAL MEDICAL PROBLEM - General Chief Complaint: Chest Pain Stated Complaint: CHEST PAIN AND ARM PAIN Time Seen by Provider: 03/29/19 11:45 Source of Information: Reports: Patient History Limitations: Reports: No Limitations - History of Present Illness INITIAL COMMENTS - FREE TEXT/NARRATIVE: 88-year-old male presents to the ED with a two-hour history of central chest pressure discomfort rating into his left shoulder and medial arm into the upper or proximal forearm. Patient has known coronary disease with quadruple bypass performed approximately 3 years ago. He denies having any stents placed prior to that. He is not on any blood thinners because of complications with bleeding into his kidneys or gross hematuria development. He can't remember what medicine this was although he suspect he was being on Coumadin and aspirin. He has no real allergic reaction to aspirin .States he has intermittent chest pains when he gets excited or works hard. This morning he had to use crutches and retention and had to refill on a valve to loosen the not and believes this set off his chest pain. His usually when he's sits down it goes away after a while but today it won't go away. He believes it started shortly before 10 AM this morning. Describes it as pressure heaviness in his chest and left arm ache. Onset: Today Onset Date: 03/29/19 Onset Time: 10:00 Duration: Hour(s): Location: Reports: Chest, Upper Extremity, Left (Has an ache in the left axilla and down the left medial arm into the proximal forearm.) Quality: Reports: Ache, Pressure Severity: Moderate (Rates it as 5 out of 10.) Improves with: Reports: None Worsens with: Reports: Other (Seems to get worse with movement and walking.) Context: Reports: Other (René is occurrence of central chest pressure radiating to the left arm and shoulder for the last 2 hours. This occurred after exerting himself by twisting or loosening a valve nut.). Denies: Activity , Exercise, Lifting, Sick Contact, Trauma Associated Symptoms: Reports: Chest Pain, Cough, Malaise, Shortness of Breath. 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 Does not have nitroglycerin.) Left Chest Pain Score (Numeric/FACES): 5 - Related Data Allergies Allergy/AdvReac Type Severity Reaction Status Date / Time ampicillin Allergy Hives Verified 03/25/19 03:50 levofloxacin [From Levaquin] Allergy Rash Verified 03/25/19 03:50 Penicillins Allergy Hives Verified 03/25/19 03:50 tetracycline Allergy Cannot Verified 03/25/19 03:50 Remember atorvastatin [From Lipitor] AdvReac Body Aches Verified 03/25/19 03:50 lovastatin AdvReac Body Aches Verified 03/25/19 03:50 Home Meds: Home Meds Finasteride [Proscar] 5 mg PO DAILY 12/23/13 [History] Furosemide [Lasix] 20 mg PO DAILY 12/23/13 [History] Albuterol [Proventil HFA] 2 inh INH Q6H PRN 07/10/16 [History] Albuterol [Take Home: Albuterol 0.083%, 4 Neb Pack] 1 inh NEB QID PRN 07/10/16 [ History] Metoprolol Succinate [Toprol XL] 12.5 mg PO DAILY 10/01/16 [History] Pantoprazole [ProTONIX] 40 mg PO ACBREAKFAST 02/24/17 [History] Acetaminophen [Tylenol] 325 mg PO BID PRN 06/28/17 [History] Calcium Carbonate [Tums] 1,000 mg PO BID 06/28/17 [History] Cyanocobalamin (Vitamin B-12) [Vitamin B-12] 1,000 mcg PO DAILY 06/28/17 [ History] [place]-3 Fatty Acids [Maxepa] 1,000 mg PO DAILY 06/28/17 [History] Bisacodyl [Laxative] 0 mg PO DAILY 03/29/19 [History] Budesonide [Pulmicort] 1 applic INH DAILY 03/29/19 [History] Rosuvastatin [Crestor] 5 mg PO DAILY 03/29/19 [History] Past Medical History HEENT History: Reports: Hard of Hearing, Impaired Vision Other HEENT History: Wears glasses, dentures, hearing aids Cardiovascular History: Reports: Afib (paroxysmal), Aneurysm (AAA), Blood Clots/ VTE/DVT (DVT x 2), CAD, Heart Failure, Hypertension, ME (x 2), PVD Other Cardiovascular History: carotid stenosis, dvt x2, Respiratory History: Reports: COPD Gastrointestinal History: Reports: Diverticulosis, GERD Other Gastrointestinal History: increased bilirubin Genitourinary History: Reports: BPH, Retention, Urinary Other Genitourinary History: renal insufficiency, retention 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 INFORMATION CLERK History: Reports: None Musculoskeletal History: Reports: Fracture (rib, L4 compression, left hip) Other Musculoskeletal History: rib fracture, degenrative joint disease, vertebral fracture, hand pain, stress fracture Neurological History: Reports: Neuropathy, Peripheral Psychiatric History: Reports: None Endocrine/Metabolic History: Reports: Diabetes, Type II Hematologic History: Reports: Anemia Immunologic History: Reports: None Oncologic (Cancer) History: Reports: Colon Dermatologic History: Reports: Other (See Below) Other Dermatologic History: actinic keratosis, skin lesion, cryosurgery - Past Surgical History HEENT Surgical History: Reports: Cataract Surgery (bilateral), Laser Surgery ( bilateral) Cardiovascular Surgical History: Reports: AAA Repair (endograft), Coronary Artery Bypass (x 4) GI Surgical History: Reports: Appendectomy, Colon (Hemicolectomy for colon cancer), Colonoscopy, EGD, Hernia, Inguinal Neurological Surgical History: Reports: Laminectomy (lumbar), Vertebroplasty (L4 ) Musculoskeletal Surgical History: Reports: Other (See Below) (Left hip pinning) Social & Family History - Family History Family Medical History: Noncontributory - Caffeine Use Caffeine Use: Reports: Coffee, Soda, Tea - Living Situation & Occupation Living situation: Reports: , with Spouse Occupation: Retired ED ROS GENERAL - Review of Systems Review Of Systems: See Below Constitutional: Reports: Fatigue HEENT: Reports: Glasses, Hearing Loss (Mild to moderate hearing loss.) Respiratory: Reports: Shortness of Breath, Wheezing, Cough. Denies: Pleuritic Chest Pain, Sputum, Hemoptysis (Nonproductive cough which is chronic) Cardiovascular: Reports: Chest Pain, Blood Pressure Problem, Dyspnea on Exertion (Mild both lower extremities chronically), Edema. Denies: Claudication , Lightheadedness, Orthopnea (Mild hypertension), Palpitations ( likely) Endocrine: Reports: Fatigue GI/Abdominal: Reports: Constipation : Reports: Frequency, Urinary Retention, Other (Known significant prostatism. ) Musculoskeletal: Reports: Neck Pain, Arm Pain (Pain in his left precordial chest axilla and medial aspect of his left arm.), Back Pain (Chronic pain in his neck), Joint Pain ( and low back pain stiffness and soreness in his knees and hips. ) Skin: Reports: No Symptoms Neurological: Reports: No Symptoms Psychiatric: Reports: No Symptoms Hematologic/Lymphatic: Reports: No Symptoms Immunologic: Reports: No Symptoms ED EXAM, GENERAL - Physical Exam Exam: See Below Exam Limited By: No Limitations General Appearance: Alert, WD/WN, No Apparent Distress, Other (Vital signs show temperature is normal. Pulse of 74 in sinus respiratory distress 25 with O2 sats of 95-96% on room air. BP mildly elevated initially at 153/97. It has come down to 154/79.) Eye Exam: Bilateral Eye: Normal Inspection (Patient has bilateral pallor of the lobe peripheral margin suggestive of anemia. I suspect he may be around 9 hemoglobin.), PERRL Throat/Mouth: Normal Inspection, Normal Lips, Normal Oropharynx Head: Atraumatic, Normocephalic Neck: Limited Range of Motion, Tender Lateral. No: Full Range of Motion ( Mildly tender throughout both sides of the cervical spine.), Carotid Bruit, Lymphadenopathy (L), Lymphadenopathy (R) Respiratory/Chest: No Accessory Muscle Use, Respiratory Distress (Tachypnea at rest 25-28/m. Sats are maintained at 95-96% on room air), Wheezing (Expiratory wheeze particularly on forced expiration throughout both lung moe.). No: Normal Breath Sounds, Crackles, Rales, Rhonchi Cardiovascular: Regular Rate, Rhythm, No Gallop, No Murmur, No Rub. No: Normal Peripheral Pulses, No Edema Peripheral Pulses: 1+: Posterior Tibial (L) (Pulses are difficult to feel in his feet. Mild edema at the ankles and feet.), Posterior Tibial (R), Dorsalis Pedis (L), Dorsalis Pedis (R) GI/Abdominal: Normal Bowel Sounds, Soft, Non-Tender, No Organomegaly Back Exam: Decreased Range of Motion, Other (Very mild kyphosis thoracic spine.) Extremities: Pedal Edema (1-2+ pedal edema bilaterally to mid tib-fib.), Other ( Evidence of most arthritic changes both knees and very limited internal/ external rotation of both hips compare with arthritis.). No: Normal Range of Motion Neurological: Alert, Oriented, CN II-XII Intact, Normal Cognition, No Motor/ Sensory Deficits Psychiatric: Normal Affect, Normal Mood Skin Exam: Warm, Dry, Intact, Pallor (Moderately pallid.). No: Normal Color Lymphatic: No Adenopathy EKG INTERPRETATION EKG Date: 03/29/19 Time: 11:46 Rhythm: NSR Rate (Beats/Min): 72 [place]: RAD-Right [place] Deviation (Borderline right axis deviation at 81.) P-Wave: Present (With first-degree AV block.) QRS: Other (Q waves are present V1 and V2 compatible with an old anteroseptal myocardial infarction there is early R-wave transition in lead V3 V4. Consider right ventricular hypertrophy pattern versus septal hypertrophy.) ST-T: Other (There is a Q-wave in aVL. Some flattening of the ST segment in aVL and leads V1 and V2.) QT: Normal EKG Interpretation Comments: No signs of ischemia. Abnormal ECG Course - Vital Signs Last Recorded V/S: Last Vital Signs Temp 36.5 C 03/29/19 11:45 Pulse 74 03/29/19 11:45 Resp 25 H 03/29/19 11:45 BP 153/97 H 03/29/19 11:45 Pulse Ox 95 03/29/19 11:45 - Orders/Labs/Meds Orders: Active Orders 24 hr Category Date Time Status Bladder Scan [RC] ASDIRECTED Care 03/29/19 11:49 Active EKG Documentation Completion [RC] STAT Care 03/29/19 11:46 Active EKG Documentation Completion [RC] STAT Care 03/29/19 15:27 Active Peripheral IV Care [RC] . DIRECTED Care 03/29/19 15:49 Active RT Aerosol Therapy [RC] ASDIRECTED Care 03/29/19 11:45 Active Chest 1V Frontal [CR] Stat Exams 03/29/19 11:46 Taken CULTURE URINE [RM] Stat Lab 03/29/19 14:10 Received Heparin Sodium/D5W [Heparin 25,000 Units in D5W 500 ML] Med 03/29/19 15:30 Active 25,000 units in 500 ml IV ASDIRECTED Nitroglycerin/D5W [Nitroglycerin 25 MG/D5W 250 ML] Med 03/29/19 11:45 Active 25 mg in 250 ml IV TITRATE Sodium Chloride 0.9% [Saline Flush] Med 03/29/19 15:49 Active 10 ml FLUSH ASDIRECTED PRN Peripheral IV Insertion Adult [OM.PC] Stat Oth 03/29/19 15:49 Ordered Medication Orders Nitroglycerin/Dextrose (Nitroglycerin 25 Mg/D5w 250 Ml) 25 mg in 250 mls @ 3 mls/hr IV TITRATE CRISTIANO; Protocol Last Titration: 03/29/19 13:49 Dose: 5 mcg/min, 3 mls/hr Admin: 03/29/19 12:05 Dose: 10 mcg/min, 6 mls/hr Heparin Sodium/Dextrose (Heparin 25,000 Units In D5w 500 Ml) 25,000 units in 500 mls @ 18 mls/hr IV ASDIRECTED CRISTIANO Last Admin: 03/29/19 15:29 Dose: 900 units/hr, 18 mls/hr Sodium Chloride (Saline Flush) 10 ml FLUSH ASDIRECTED PRN PRN Reason: Keep Vein Open Last Admin: 03/29/19 15:53 Dose: 10 ml Labs: Laboratory Tests 03/29/19 03/29/19 03/29/19 Range/Units 12:00 12:00 12:00 WBC 5.55 (4.23-9.07) K/mm3 RBC 4.33 L (4.63-6.08) M/mm3 Hgb 12.1 L (13.7-17.5) gm/L Hct 38.5 L (40.1-51.0) % MCV 88.9 (79.0-92.2) fl MCH 27.9 (25.7-32.2) pg MCHC 31.4 L (32.2-35.5) g/dl RDW Std Deviation 46.4 H (35.1-43.9) fL Plt Count 165 (163-337) K/mm3 MPV 11.0 (9.4-12.3) fl Neut % (Auto) 54.3 (34.0-67.9) % Lymph % (Auto) 29.2 (21.8-53.1) % [place] % (Auto) 9.9 (5.3-12.2) % Eos % (Auto) 5.9 (0.8-7.0) Baso % (Auto) 0.5 (0.1-1.2) % Neut # (Auto) 3.01 (1.78-5.38) K/mm3 Lymph # (Auto) 1.62 (1.32-3.57) K/mm3 [place] # (Auto) 0.55 (0.30-0.82) K/mm3 Eos # (Auto) 0.33 (0.04-0.54) K/mm3 Baso # (Auto) 0.03 (0.01-0.08) K/mm3 PT 10.6 (9.7-12.0) SECONDS INR 0.97 APTT 26 (22-31) SECONDS Sodium 144 (136-145) mEq/L Potassium 4.7 (3.5-5.1) mEq/L Chloride 107 (98-107) mEq/L Carbon Dioxide 29 (21-32) mEq/L Anion Gap 12.7 (5-15) BUN 28 H (7-18) mg/dL Creatinine 1.5 H (0.7-1.3) mg/dL Est Cr Clr Drug Dosing 33.39 mL/min Estimated GFR (MDRD) 44 (>60) mL/min BUN/Creatinine Ratio 18.7 H (14-18) Glucose 102 (83-115) mg/dL Calcium 9.4 (8.5-10.1) mg/dL Magnesium 2.2 (1.8-2.4) mg/dl Total Bilirubin 1.0 (0.2-1.0) mg/dL AST 21 (15-37) U/L ALT 23 (16-63) U/L Alkaline Phosphatase 95 (46-116) U/L Creatine Kinase (39-308) U/L CK-MB (CK-2) 7.9 H (0-3.6) ng/ml Troponin I 0.074 H* (0.00-0.056) ng/mL NT-Pro-B Natriuret Pep (0-450) pg/mL Total Protein 7.7 (6.4-8.2) g/dl Albumin 3.9 (3.4-5.0) g/dl Globulin 3.8 gm/dL Albumin/Globulin Ratio 1.0 (1-2) Urine Color (Yellow) Urine Appearance (Clear) Urine pH (5.0-8.0) Ur Specific [place] (1.005-1.030) Urine Protein (Negative) Urine Glucose (UA) (Negative) Urine Ketones (Negative) Urine Occult Blood (Negative) Urine Nitrite (Negative) Urine Bilirubin (Negative) Urine Urobilinogen (0.2-1.0) Ur Leukocyte Esterase (Negative) Urine RBC (0-5) /hpf Urine WBC (0-5) /hpf Ur Squamous Epith Cells (0-5) /hpf Amorphous Sediment (NOT SEEN) /hpf Urine Bacteria (FEW) /hpf Urine Mucus (FEW) /hpf 03/29/19 03/29/19 03/29/19 Range/Units 12:00 12:00 14:00 WBC (4.23-9.07) K/mm3 RBC (4.63-6.08) M/mm3 Hgb (13.7-17.5) gm/L Hct (40.1-51.0) % MCV (79.0-92.2) fl MCH (25.7-32.2) pg MCHC (32.2-35.5) g/dl RDW Std Deviation (35.1-43.9) fL Plt Count (163-337) K/mm3 MPV (9.4-12.3) fl Neut % (Auto) (34.0-67.9) % Lymph % (Auto) (21.8-53.1) % [place] % (Auto) (5.3-12.2) % Eos % (Auto) (0.8-7.0) Baso % (Auto) (0.1-1.2) % Neut # (Auto) (1.78-5.38) K/mm3 Lymph # (Auto) (1.32-3.57) K/mm3 [place] # (Auto) (0.30-0.82) K/mm3 Eos # (Auto) (0.04-0.54) K/mm3 Baso # (Auto) (0.01-0.08) K/mm3 PT (9.7-12.0) SECONDS INR APTT (22-31) SECONDS Sodium (136-145) mEq/L Potassium (3.5-5.1) mEq/L Chloride (98-107) mEq/L Carbon Dioxide (21-32) mEq/L Anion Gap (5-15) BUN (7-18) mg/dL Creatinine (0.7-1.3) mg/dL Est Cr Clr Drug Dosing mL/min Estimated GFR (MDRD) (>60) mL/min BUN/Creatinine Ratio (14-18) Glucose (83-115) mg/dL Calcium (8.5-10.1) mg/dL Magnesium (1.8-2.4) mg/dl Total Bilirubin (0.2-1.0) mg/dL AST (15-37) U/L ALT (16-63) U/L Alkaline Phosphatase (46-116) U/L Creatine Kinase 331 H (39-308) U/L CK-MB (CK-2) 7.4 H (0-3.6) ng/ml Troponin I 0.177 H* (0.00-0.056) ng/mL NT-Pro-B Natriuret Pep 924 H (0-450) pg/mL Total Protein (6.4-8.2) g/dl Albumin (3.4-5.0) g/dl Globulin gm/dL Albumin/Globulin Ratio (1-2) Urine Color (Yellow) Urine Appearance (Clear) Urine pH (5.0-8.0) Ur Specific [place] (1.005-1.030) Urine Protein (Negative) Urine Glucose (UA) (Negative) Urine Ketones (Negative) Urine Occult Blood (Negative) Urine Nitrite (Negative) Urine Bilirubin (Negative) Urine Urobilinogen (0.2-1.0) Ur Leukocyte Esterase (Negative) Urine RBC (0-5) /hpf Urine WBC (0-5) /hpf Ur Squamous Epith Cells (0-5) /hpf Amorphous Sediment (NOT SEEN) /hpf Urine Bacteria (FEW) /hpf Urine Mucus (FEW) /hpf // Range/Units 14:10 WBC (4.23-9.07) K/mm3 RBC (4.63-6.08) M/mm3 Hgb (13.7-17.5) gm/L Hct (40.1-51.0) % MCV (79.0-92.2) fl MCH (25.7-32.2) pg MCHC (32.2-35.5) g/dl RDW Std Deviation (35.1-43.9) fL Plt Count (163-337) K/mm3 MPV (9.4-12.3) fl Neut % (Auto) (34.0-67.9) % Lymph % (Auto) (21.8-53.1) % [place] % (Auto) (5.3-12.2) % Eos % (Auto) (0.8-7.0) Baso % (Auto) (0.1-1.2) % Neut # (Auto) (1.78-5.38) K/mm3 Lymph # (Auto) (1.32-3.57) K/mm3 [place] # (Auto) (0.30-0.82) K/mm3 Eos # (Auto) (0.04-0.54) K/mm3 Baso # (Auto) (0.01-0.08) K/mm3 PT (9.7-12.0) SECONDS INR APTT (22-31) SECONDS Sodium (136-145) mEq/L Potassium (3.5-5.1) mEq/L Chloride (98-107) mEq/L Carbon Dioxide (21-32) mEq/L Anion Gap (5-15) BUN (7-18) mg/dL Creatinine (0.7-1.3) mg/dL Est Cr Clr Drug Dosing mL/min Estimated GFR (MDRD) (>60) mL/min BUN/Creatinine Ratio (14-18) Glucose (83-115) mg/dL Calcium (8.5-10.1) mg/dL Magnesium (1.8-2.4) mg/dl Total Bilirubin (0.2-1.0) mg/dL AST (15-37) U/L ALT (16-63) U/L Alkaline Phosphatase (46-116) U/L Creatine Kinase (39-308) U/L CK-MB (CK-2) (0-3.6) ng/ml Troponin I (0.00-0.056) ng/mL NT-Pro-B Natriuret Pep (0-450) pg/mL Total Protein (6.4-8.2) g/dl Albumin (3.4-5.0) g/dl Globulin gm/dL Albumin/Globulin Ratio (1-2) Urine Color Light yellow (Yellow) Urine Appearance Slt cloudy H (Clear) Urine pH 7.0 (5.0-8.0) Ur Specific [place] 1.020 (1.005-1.030) Urine Protein Negative (Negative) Urine Glucose (UA) Negative (Negative) Urine Ketones Negative (Negative) Urine Occult Blood 2+ H (Negative) Urine Nitrite Negative (Negative) Urine Bilirubin Negative (Negative) Urine Urobilinogen 0.2 (0.2-1.0) Ur Leukocyte Esterase 1+ H (Negative) Urine RBC 30-40 H (0-5) /hpf Urine WBC 20-30 H (0-5) /hpf Ur Squamous Epith Cells 0-5 (0-5) /hpf Amorphous Sediment Few H (NOT SEEN) /hpf Urine Bacteria Moderate H (FEW) /hpf Urine Mucus Not seen (FEW) /hpf Meds: Medications Generic Name Dose Route Start Last Admin Trade Name Freq PRN Reason Stop Dose Admin Nitroglycerin/Dextrose 25 mg in 250 mls @ 3 mls/hr 03/29/19 11:45 03/29/19 13 :49 Nitroglycerin 25 Mg/D5w 250 Ml IV 5 mcg/min TITRATE CRISTIANO 3 mls/hr Titration Protocol 5 MCG/MIN Heparin Sodium/Dextrose 25,000 units in 500 mls @ 18 mls/hr 03/29/19 15:30 15:29 Heparin 25,000 Units In D5w 500 Ml IV 900 units/hr ASDIRECTED CRISTIANO 18 mls/hr Administration 900 UNITS/HR Sodium Chloride 10 ml 03/29/19 15:49 03/29/19 15:53 Saline Flush FLUSH 10 ml ASDIRECTED PRN Administration Keep Vein Open Discontinued Medications Generic Name Dose Route Start Last Admin Trade Name Freq PRN Reason Stop Dose Admin Albuterol/Ipratropium 3 ml 03/29/19 11:45 03/29/19 12:08 Duoneb 3.0-0.5 Mg/3 Ml NEB 03/29/19 11:46 3 ml ONETIME ONE Administration Aspirin 324 mg 03/29/19 11:45 03/29/19 11:55 Aspirin PO 03/29/19 11:46 324 mg ONETIME ONE Administration Furosemide 40 mg 03/29/19 13:02 03/29/19 13:45 Lasix IVPUSH 03/29/19 13:03 40 mg NOW ONE Administration Heparin Sodium (Porcine) 4,000 units 03/29/19 15:18 03/29/19 15:29 Heparin Sodium IVPUSH 03/29/19 15:19 4,000 units .BOLUS ONE Administration - Radiology Interpretation Free Text/Narrative:: 88-year-old male attends the ED after developing central chest pressure heaviness radiating into the left shoulder medial aspect of his left arm into the proximal left forearm about 2 hours ago. States she was loosening of valve nut with a crescent wrench and had to pretty hard on the valve to get it to loosen. He states this exertion seemed to precipitate the chest pain. It goes away within 5-10 minutes of rest but it has not. ECG reveals no evidence o acute myocardial infarction or ischemia does show evidence of an old anteroseptal myocardial infarction. he had quadruple bypass about 3 years ago. He is leery about taking aspirin as he had some gross hematuria with bleeding into his kidneys but he was on Coumadin and aspirin at that time. Advised that 4 baby aspirins at this time is indicated and will not make him bleed. He will be placed on a nitroglycerin drip at 10 mg/min.. He is wheezing without evidence of rales. Abdomen his age I suspect he has a component of COPD as he used to smoke. Give him a DuoNeb nebulizer treatment. Possibility of cardiac asthma identified. 02 Sats however are 96-97% on room air. Labs to be done to include cardiac markers but will likely have to be repeated in 2 hours time since he attended the ED within 2 hours of developing the chest discomfort. - Re-Assessments/Exams Free Text/Narrative Re-Assessment/Exam: 03/29/19 12:16 portable chest x-ray reveals moderate cardiomegaly with some blunting of the right costophrenic angle. He is rotated to the left. He does have diffuse hyperinflation of both lungs compatible with COPD. There perhaps is a very small right-sided pleural effusion. Right hemidiaphragm is also lower than one would anticipate. There is evidence of previous midline sternotomy with wiring of the sternum. He reports chest pain is pretty well gone away since the nitro drip was started. 03/29/19 12:59 Labs reveal a normal white count at 5.55. Auto differential shows 54% neutrophils. Hemoglobin is 12.1 with hematocrit of 38.5. MCV is 88.9. Platelet count 165,000. PT is 10.6 with an INR of 0.97. PTT is 26. Sodium is 144 potassium 4.7. Chloride 97 with a bicarbonate 29. Anion gap is 12.7. BUN is 28 . Creatinine is 1.5. GFR is 44. BUN/creatinine ratio slightly elevated 18.7. Glucose 102 with a calcium of 9.4. Magnesium is 2.2. Liver function normal. CK- MB fraction is elevated at 7.9. Troponin I is also elevated at 0.074. BNP is 924. Total protein is 7.7 with albumin fraction of 3.9. I will order a total CPK value. He will be for repeat cardiac markers at 1400 hrs. Question is whether they are elevated due to non-STEMI versus congestive failure. He is not keen on being heparinized at this time. Will be given Lasix 40 mg IV for elevated BNP. 03/29/19 13:44 total CPK is elevated at 331. Blood pressure has fallen to 116/ 68. He remains chest pain-free. I will decrease his nitro drip from 10-5 mcg/m. he is for repeat cardiac markers at 1400 hrs. 03/29/19 14:24 Urinalysis is slightly cloudy. 2+ occult blood appreciated. 1+ leukocyte esterase. There are 30-40 RBCs per power field and 20-30 white blood cells per high-power field. Moderate bacteria are also appreciated. Urine culture will be ordered. 03/29/19 15:15 repeat cardiac markers reveal that the CPK has elevated only mildly to 7.9 from 7.4 but the troponin has doubled and is currently 1.77. He remains chest pain-free on low-dose nitroglycerin. I will heparinize him at this time although he's very worried that he will have further bleeding problems. He wishes to go to cardiology for consultation as he is a "level I. I will discuss this [facility] [place]. ECG is sinus rhythm with first-degree AV block at 72/min. He does not show any variation of the ST segments to confirm which vessel may be involved in causing his elevated troponin and non-STEMI. It is essentially unchanged from ECG #1. 03/29/19 15:34 Discussed the case through the one call nurse at [facility] in [place] and --health communications specialist hospitalist has accepted care. The patient will be therefore transferred to that institution per ground ambulance. Departure - Departure Time of Disposition: 16:57 Disposition: DC/Tfer to Acute Hospital 02 Reason for Transfer *Q: Primary PCI Indicated Condition: Fair Clinical Impression: Acute myocardial infarction Qualifiers: Myocardial infarction type: non-ST elevation myocardial infarction Qualified Code(s): I21.4 - Non-ST elevation (NSTEMI) myocardial infarction Referrals: Oscar Chatman MD [Primary Care Provider] - Forms: ED Department Discharge - My Orders Last 24 Hours: My Active Orders 03/29/19 11:45 RT Aerosol Therapy [RC] ASDIRECTED Nitroglycerin/D5W [Nitroglycerin 25 MG/D5W 250 ML] 25 mg in 250 ml IV TITRATE 03/29/19 11:46 EKG Documentation Completion [RC] STAT Chest 1V Frontal [CR] Stat 03/29/19 11:49 Bladder Scan [RC] ASDIRECTED 03/29/19 14:10 CULTURE URINE [RM] Stat 03/29/19 15:27 EKG Documentation Completion [RC] STAT 03/29/19 15:30 Heparin Sodium/D5W [Heparin 25,000 Units in D5W 500 ML] 25,000 units in 500 ml IV ASDIRECTED 03/29/19 15:49 Peripheral IV Care [RC] . DIRECTED Sodium Chloride 0.9% [Saline Flush] 10 ml FLUSH ASDIRECTED PRN Peripheral IV Insertion Adult [OM.PC] Stat - Assessment/Plan Last 24 Hours: My Active Orders 03/29/19 11:45 RT Aerosol Therapy [RC] ASDIRECTED Nitroglycerin/D5W [Nitroglycerin 25 MG/D5W 250 ML] 25 mg in 250 ml IV TITRATE 03/29/19 11:46 EKG Documentation Completion [RC] STAT Chest 1V Frontal [CR] Stat 03/29/19 11:49 Bladder Scan [RC] ASDIRECTED 03/29/19 14:10 CULTURE URINE [RM] Stat 03/29/19 15:27 EKG Documentation Completion [RC] STAT 03/29/19 15:30 Heparin Sodium/D5W [Heparin 25,000 Units in D5W 500 ML] 25,000 units in 500 ml IV ASDIRECTED 03/29/19 15:49 Peripheral IV Care [RC] . DIRECTED Sodium Chloride 0.9% [Saline Flush] 10 ml FLUSH ASDIRECTED PRN Peripheral IV Insertion Adult [OM.PC] Stat
[2019-03-29] MEDS ORDERED: Furosemide 40 MG/4 ML VIAL IVPUSH ONE (13:02)
[2019-03-29] MEDS ORDERED: Heparin Sodium 5,000 Units/ML Vial IVPUSH ONE (15:18)
[2019-03-29] MEDS ORDERED: Heparin Sodium/D5W 25,000 UNITS/500 ML BAG IV SCH (15:30)
[2019-03-29] MEDS ORDERED: Sodium Chloride 0.9% 10 ML Syringe FLUSH PRN (15:49)
--- NOTE | 2019-03-31 07:00 | CR ---
Chest: Portable view of the chest was obtained. Comparison: Previous chest x-ray of 11/22/17. Nodule seen previously within the right chest has slightly diminished in prominence on current exam. Uncertain if this is real or due to technique. Lungs otherwise are clear with no acute parenchymal change. Slight blunting of the right lateral costophrenic angle is seen which is believed to be chronic. Heart size is accentuated from portable technique. Previous sternotomy is noted. Bony structures are grossly intact. Impression: 1. Nodule within the right mid chest as described above. 2. Other findings which are believed to be incidental as noted above. 3. Nothing acute is appreciated on portable chest x-ray. Diagnostic code #3
== END 2019-03-29 17:10 ==
LOC: JD.ED 11:31
DX: I21.4 Non-ST elevation (NSTEMI) myocardial infarction (principal); I11.0 Hypertensive heart disease with heart failure; I50.9 Heart failure, unspecified; K21.9 Gastro-esophageal reflux disease without esophagitis; I48.91 Unspecified atrial fibrillation; Z88.0 Allergy status to penicillin; Z88.1 Allergy status to other antibiotic agents; Z88.8 Allergy status to other drugs, medicaments and biological substances; Z79.899 Other long term (current) drug therapy; E11.9 Type 2 diabetes mellitus without complications; Z98.41 Cataract extraction status, right eye; Z98.42 Cataract extraction status, left eye; Z90.49 Acquired absence of other specified parts of digestive tract
CPT/HCPCS: 36415; 51798; 71045; 80053; 81001; 82550; 82553; 83735; 83880; 84484; 85025; 85610; 85730; 87086; 87088; 87186; 93005; 94640; 96365; 96366; 96368; 96375; 99285; A9270; J1644; J1940; J3490; 93010; J7620-GY

== ENCOUNTER 2019-04-02 12:44 | Emergency (ER) | payer MEDICARE, BC ==
[2019-04-02 12:58] VITALS: BP 122/70
--- NOTE | 2019-04-02 14:18 | EDM.PDOC ---
ED HPI GENERAL MEDICAL PROBLEM - General Chief Complaint: General Stated Complaint: SENT BY CLINIC Time Seen by Provider: 04/02/19 14:14 Source of Information: Reports: Patient, Provider History Limitations: Reports: No Limitations - History of Present Illness INITIAL COMMENTS - FREE TEXT/NARRATIVE: 88-year-old male sent over from the clinic. Provider called report. Patient has been cough, fevers and chills. Reportedly had a temp of 101 in the clinic. They're concerned that he possibly has pneumonia. Sent to the ER possibly for IV antibiotics. Patient was discharged just yesterday from [facility] for a non-STEMI. Labs and x-ray were done today. Provider had these faxed over to the ER. CRP is quite high, white cell count is within normal limits and chest x-ray does not show any signs of pneumonia. Patient states that he has a runny nose. States that he sometimes feels chilled. He reports clear drainage from the nose. Denies any cough. He is very hard of hearing. - Related Data Allergies Allergy/AdvReac Type Severity Reaction Status Date / Time ampicillin Allergy Hives Verified 04/02/19 12:58 levofloxacin [From Levaquin] Allergy Rash Verified 04/02/19 12:58 Penicillins Allergy Hives Verified 04/02/19 12:58 tetracycline Allergy Cannot Verified 04/02/19 12:58 Remember atorvastatin [From Lipitor] AdvReac Body Aches Verified 04/02/19 12:58 lovastatin AdvReac Body Aches Verified 04/02/19 12:58 Home Meds: Home Meds Finasteride [Proscar] 5 mg PO DAILY 12/23/13 [History] Furosemide [Lasix] 20 mg PO DAILY 12/23/13 [History] Albuterol [Proventil HFA] 2 inh INH Q6H PRN 07/10/16 [History] Albuterol [Take Home: Albuterol 0.083%, 4 Neb Pack] 1 inh NEB QID PRN 07/10/16 [ History] Metoprolol Succinate [Toprol XL] 12.5 mg PO DAILY 10/01/16 [History] Pantoprazole [ProTONIX] 40 mg PO ACBREAKFAST 02/24/17 [History] Acetaminophen [Tylenol] 325 mg PO BID PRN 06/28/17 [History] Calcium Carbonate [Tums] 1,000 mg PO BID 06/28/17 [History] Cyanocobalamin (Vitamin B-12) [Vitamin B-12] 1,000 mcg PO DAILY 06/28/17 [ History] [place]-3 Fatty Acids [Maxepa] 1,000 mg PO DAILY 06/28/17 [History] Bisacodyl [Laxative] 0 mg PO DAILY 03/29/19 [History] Budesonide [Pulmicort] 1 applic INH DAILY 03/29/19 [History] Rosuvastatin [Crestor] 5 mg PO DAILY 03/29/19 [History] Levocetirizine Dihydrochloride [Xyzal] 2.5 mg PO DAILY #14 tablet 04/02/19 [Rx] Past Medical History HEENT History: Reports: Hard of Hearing, Impaired Vision Other HEENT History: Wears glasses, dentures, hearing aids Cardiovascular History: Reports: Afib, Aneurysm, Blood Clots/VTE/DVT, CAD, Heart Failure, Hypertension, PR, PVD Other Cardiovascular History: carotid stenosis, dvt x2, Respiratory History: Reports: COPD Gastrointestinal History: Reports: Diverticulosis, GERD Other Gastrointestinal History: increased bilirubin Genitourinary History: Reports: BPH, Retention, Urinary Other Genitourinary History: renal insufficiency, retention 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 Musculoskeletal History: Reports: Fracture Other Musculoskeletal History: rib fracture, degenrative joint disease, vertebral fracture, hand pain, stress fracture Neurological History: Reports: Neuropathy, Peripheral Psychiatric History: Reports: None Endocrine/Metabolic History: Reports: Diabetes, Type II Hematologic History: Reports: Anemia Immunologic History: Reports: None Oncologic (Cancer) History: Reports: Colon Dermatologic History: Reports: Other (See Below) Other Dermatologic History: actinic keratosis, skin lesion, cryosurgery - Past Surgical History Head Surgeries/Procedures: Reports: None HEENT Surgical History: Reports: Cataract Surgery, Laser Surgery Cardiovascular Surgical History: Reports: AAA Repair, Coronary Artery Bypass GI Surgical History: Reports: Appendectomy, Colon, Colonoscopy, EGD, Hernia, Inguinal Neurological Surgical History: Reports: Laminectomy, Vertebroplasty Musculoskeletal Surgical History: Reports: Other (See Below) Social & Family History - Family History Family Medical History: Noncontributory - Tobacco Use Smoking Status *Q: Never Smoker - Caffeine Use Caffeine Use: Reports: None - Living Situation & Occupation Living situation: Reports: , with Spouse Occupation: Retired ED ROS GENERAL - Review of Systems Review Of Systems: See Below Constitutional: Reports: Fever (per provider, patient unsure), Chills HEENT: Reports: Rhinitis Respiratory: Denies: Cough ED EXAM, GENERAL - Physical Exam Exam: See Below Exam Limited By: No Limitations General Appearance: Alert, WD/WN, No Apparent Distress Eye Exam: Bilateral Eye: Normal Inspection Ears: Normal External Exam, Normal Canal, Normal TMs, Hearing Loss Nose: Normal Inspection Throat/Mouth: Normal Inspection, Normal Lips, Normal Voice, No Airway Compromise Respiratory/Chest: No Respiratory Distress, Lungs Clear, Normal Breath Sounds Cardiovascular: Normal Peripheral Pulses, Regular Rate, Rhythm, No Murmur Neurological: Alert, Oriented, Normal Cognition Psychiatric: Normal Affect, Normal Mood Skin Exam: Warm, Dry, Normal Color Course - Vital Signs Last Recorded V/S: Last Vital Signs Temp 98.2 F 04/02/19 12:55 Pulse 92 04/02/19 12:55 Resp 18 04/02/19 12:55 BP 122/70 04/02/19 12:55 Pulse Ox 92 L 04/02/19 12:55 - Re-Assessments/Exams Free Text/Narrative Re-Assessment/Exam: 04/02/19 14:13 Labs and imaging reviewed from [facility]. Patient has a normal WBC and no pneumonia on xray. CRP is likely high from the recent NSTEMI he had less then a week ago. Patient's main complaint is a runny nose which is what prompted his visit to the clinic today. He would like something for the runny nose. I see no need for admission, IV or oral antibiotics. I will put him on a low dose, given his age, antihistamine for the rhinitis. Discharge instructions as documented. Departure - Departure Time of Disposition: 14:14 Disposition: Home, Self-Care 01 Condition: Good Clinical Impression: Rhinitis - Discharge Information *PRESCRIPTION DRUG MONITORING PROGRAM REVIEWED*: No *COPY OF PRESCRIPTION DRUG MONITORING REPORT IN PATIENT CHRISTINE: No Prescriptions: Levocetirizine Dihydrochloride [Xyzal] 2.5 mg PO DAILY #14 tablet Instructions: Nonallergic Rhinitis Referrals: Oscar Chatman MD [Primary Care Provider] - Forms: ED Department Discharge Additional Instructions: Take one half of a levocetirizine (2.5 mg) daily for 2 weeks. Follow up with your primary care prov in 2-3 weeks for recheck of your symptoms. Please return to ER for symptoms change or worsen.
== END 2019-04-02 14:50 | disposition home or self-care (01) ==
LOC: JD.ED 12:44
DX: J31.0 Chronic rhinitis (principal); I11.0 Hypertensive heart disease with heart failure; I50.9 Heart failure, unspecified; I48.91 Unspecified atrial fibrillation; I25.10 Atherosclerotic heart disease of native coronary artery without angina pectoris; K21.9 Gastro-esophageal reflux disease without esophagitis; E11.9 Type 2 diabetes mellitus without complications; Z98.49 Cataract extraction status, unspecified eye; Z95.1 Presence of aortocoronary bypass graft; Z90.49 Acquired absence of other specified parts of digestive tract; Z88.1 Allergy status to other antibiotic agents; Z88.0 Allergy status to penicillin
CPT/HCPCS: 99283

== ENCOUNTER 2019-05-19 07:09 | Day surgery (SDC) | payer MEDICARE, BC ==
[~2019-05-19 07:09] MED LIST changes: +Lidocaine 1%/Sod Bicarbonate in NS 8.4% 1 ML Syringe IDERM PRN; -Lidocaine 1%/Sod Bicarbonate in NS 8.4% 1 ML Syringe PRN
[2019-05-19] MEDS ORDERED: Propofol 200 MG/20 ML SDV ONE (07:35)
[2019-05-19] MEDS ORDERED: Ketamine 500 mg/10 ML MDV ONE (07:36)
[2019-05-19] MEDS ORDERED: Lidocaine 1% 4 ML ONE (07:36)
--- NOTE | 2019-05-19 07:40 | PCM.PREANE ---
Preanesthetic Assessment - Procedure Proposed Procedure: EGD with Dilation - Anesthesia/Transfusion/Family Hx Anesthesia History: Prior Anesthesia Without Reaction Family History of Anesthesia Reaction: No Transfusion History: No Prior Transfusion(s) Intubation History: Unknown - Review of Systems General: No Symptoms Pulmonary: Shortness of Breath Cardiovascular: No Symptoms (heart attack one month ago ) Gastrointestinal: No Symptoms Neurological: Other (right arm numb and tingling ) Other: Reports: None - Physical Assessment NPO Status Date: 05/18/19 NPO Status Time: 16:30 Vital Signs: 148/80, 66+, 98 sat Height: 1.7 m ASA Class: 3 Mental Status: Alert & Oriented x3 Airway Class: Mallampati = 1 Dentition: Reports: Edentulous Thyro-Mental Finger Breadths: 3 Mouth Opening Finger Breadths: 4 ROM/Head Extension: Full Lungs: Clear to Auscultation, Normal Respiratory Effort Cardiovascular: Regular Rate, Regular Rhythm - Allergies Allergies/Adverse Reactions: Allergies Allergy/AdvReac Type Severity Reaction Status Date / Time ampicillin Allergy Hives Verified 05/16/19 11:43 levofloxacin [From Levaquin] Allergy Rash Verified 05/16/19 11:43 Penicillins Allergy Hives Verified 05/16/19 11:43 pravastatin Allergy Body Aches Verified 05/16/19 11:43 tetracycline Allergy Cannot Verified 05/16/19 11:43 Remember atorvastatin [From Lipitor] AdvReac Body Aches Verified 05/16/19 11:43 lovastatin AdvReac Body Aches Verified 05/16/19 11:43 - Blood Blood Available: No - Acknowledgements Anesthesia Type Planned: MAC Pt an Appropriate Candidate for the Planned Anesthesia: Yes Alternatives and Risks of Anesthesia Discussed w Pt/Guardian: Yes Pt/Guardian Understands and Agrees with Anesthesia Plan: Yes PreAnesthesia Questionnaire HEENT History: Reports: Hard of Hearing, Impaired Vision Other HEENT History: Wears glasses, dentures, hearing aids Cardiovascular History: Reports: Afib, Aneurysm, Blood Clots/VTE/DVT, CAD, Cardiomyopathy, Heart Failure, Hypertension, VT, PVD Other Cardiovascular History: carotid stenosis, dvt x2 Respiratory History: Reports: COPD, Other (See Below) Other Respiratory History: LUNG MASS Gastrointestinal History: Reports: Diverticulosis, GERD Other Gastrointestinal History: increased bilirubin, dysphagia Genitourinary History: Reports: BPH, Retention, Urinary Other Genitourinary History: renal insufficiency, retention, CKD III [employer]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 Musculoskeletal History: Reports: Fracture, Osteoarthritis Other Musculoskeletal History: rib fracture, degenrative joint disease, vertebral fracture, hand pain, stress fracture Neurological History: Reports: Neuropathy, Peripheral, Other (See Below) Other Neuro History: cerviclagia Psychiatric History: Reports: None Endocrine/Metabolic History: Reports: Diabetes, Type II Hematologic History: Reports: Anemia Immunologic History: Reports: None Oncologic (Cancer) History: Reports: Colon Dermatologic History: Reports: Other (See Below) Other Dermatologic History: actinic keratosis, skin lesion, cryosurgery - Past Surgical History Head Surgeries/Procedures: Reports: None HEENT Surgical History: Reports: Cataract Surgery, Laser Surgery Cardiovascular Surgical History: Reports: AAA Repair, Coronary Artery Bypass Respiratory Surgical History: Reports: None GI Surgical History: Reports: Appendectomy, Colon, Colonoscopy, EGD, Hernia, Inguinal Other GI Surgeries/Procedures: colon resection Female Surgical History: Reports: None Male Surgical History: Reports: None, Prostatectomy Endocrine Surgical History: Reports: None Neurological Surgical History: Reports: Laminectomy, Vertebroplasty Musculoskeletal Surgical History: Reports: Other (See Below) Other Musculoskeletal Surgeries/Procedures:: hip repair- IM nailing Oncologic Surgical History: Reports: None - SUBSTANCE USE Smoking Status *Q: Never Smoker Recreational Drug Use History: No - HOME MEDS Home Medications: Home Meds Acetaminophen with Codeine [Tylenol with Codeine #3 Tablet] 2 tab PO Q6H PRN 06/24 [History] Albuterol Sulfate [Albuterol Sulfate Hfa] 2 puff INH Q4H PRN 05/16/19 [History] Albuterol [Proventil Neb Soln] 1 dose NEB QID PRN 05/16/19 [History] Aspirin [Halfprin] 81 mg PO DAILY 05/16/19 [History] Budesonide [Pulmicort] 1 dose NEB DAILY 05/16/19 [History] Calcium Carbonate [Tums] 400 mg PO BID PRN 05/16/19 [History] Cyanocobalamin (Vitamin B-12) [Vitamin B-12] 1,000 mcg PO DAILY 05/16/19 [ History] Finasteride 5 mg PO DAILY 05/16/19 [History] Fish Oil/[place]-3 Fatty Acids [Fish Oil 1,000 MG] 1 gm PO DAILY 05/16/19 [History ] Furosemide 20 mg PO DAILY 05/16/19 [History] Isosorbide Mononitrate [Imdur] 15 mg PO DAILY 05/16/19 [History] Levocetirizine Dihydrochloride 2.5 mg PO DAILY 05/16/19 [History] Metoprolol Succinate 25 mg PO DAILY 05/16/19 [History] Pantoprazole Sodium [Protonix] 40 mg PO DAILY 05/16/19 [History] Polyethylene Glycol 3350 [Clearlax] 1 dose PO ASDIRECTED PRN 05/16/19 [History] Rosuvastatin Calcium 10 mg PO DAILY 05/16/19 [History] - CURRENT (IN HOUSE) MEDS Current Meds: Current Medications Lactated Ringer's (Ringers, Lactated) 1,000 mls @ 125 mls/hr IV ASDIRECTED CRISTIANO Stop: 05/19/19 23:00 Influenza Virus Vaccine (Fluzone High-Dose Syringe) 180 mcg IM .ONCE ONE Stop: 05/19/19 10:01 Lidocaine/Sodium Bicarbonate (Buffered Lidocaine 1% In Ns 8.4%) 0.25 ml IDERM ONETIME PRN PRN Reason: Prior to IV Start Stop: 05/19/19 18:00 Sodium Chloride (Saline Flush) 10 ml FLUSH ASDIRECTED PRN PRN Reason: Keep Vein Open Stop: 05/19/19 18:00 Discontinued Medications Influenza Virus Vaccine (Pharmacy To Dose - Influenza Vaccine) 1 each IM ONETIME CRISTIANO
[2019-05-19] MEDS ORDERED: Benzocaine 20% Oral Spray 59.2 ML Canister ONE (09:00)
--- NOTE | 2019-05-19 09:17 | PCM48HPAN ---
Post Anesthesia Note - EVALUATION WITHIN 48HRS OF ANESTHETIC Vital Signs in Normal Range: No (saturations 90 %, RN to monitor, history of COPD, sats increase w/ lower o2) Patient Participated in Evaluation: Yes Respiratory Function Stable: Yes Airway Patent: Yes Cardiovascular Function Stable: Yes Hydration Status Stable: Yes Pain Control Satisfactory: Yes Nausea and Vomiting Control Satisfactory: Yes Mental Status Recovered: Yes Vital Signs: Last Vital Signs Temp 36.7 C 05/19/19 07:15 Pulse 66 05/19/19 07:15 Resp 16 05/19/19 07:15 BP 148/80 H 05/19/19 07:15 Pulse Ox 98 05/19/19 07:15
--- NOTE | 2019-05-19 10:06 | OR ---
DATE OF OPERATION: 05/19/2019 SURGEON: Michael Nguyễn MD PREOPERATIVE DIAGNOSIS: Dysphagia. 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 OPERATION PERFORMED: Diagnostic esophagogastroduodenoscopy with biopsies and dilation of the stricture. ESTIMATED BLOOD LOSS: Minimal. COMPLICATIONS: None. FINDINGS: Noted above. INDICATIONS AND CONSENT: Mr. Capps is an 88-year-old male with history of long-standing dysphagia. The patient has had multiple esophageal dilations in the past, most recently was 2 to 3 years ago. The patient was doing well until about few months ago when he started having difficulty swallowing solids. He had to use fluids and change diet to liquid and pureed diet for him to be able to swallow. The patient was seen in my office and a diagnostic EGD was offered with possible dilation. The patient agreed to proceed with the procedure and informed consent was obtained. Of note, we discussed the risks, benefits, and alternatives to the EGD with dilation. Risks discussed include but not limited to perforation, bleeding, injury to surrounding structures, reaction to medications. The patient understood the risks and agreed to proceed with the procedure. DESCRIPTION OF PROCEDURE: The patient was taken to the operating room, placed in left lateral decubitus position. Following induction of monitored anesthesia, a time-out was performed. Then, a regular EGD scope was placed into the mouth and advanced just into the upper portion of the esophagus. There was a tight stricture at that point, so tight such that we were not able to pass the scope through that. The stricture started at 16 cm from the incisors. The pneumatic balloon size 8, 9, and 10 mm was used to dilate this stricture initially. Then, this was followed by 10, 11, and 12 mm balloon, which dilated the stricture to 12 mm. There was no significant bleeding. At this point, we tried again to advance the regular EGD scope through the stricture, but this was difficult to do. Therefore, we decided to change the scope so that we can get a small narrow scope that we can see if we can advance. The scope was changed. The narrow scope was able to go past the stricture and we went all the way down into the duodenum second portion. Pictures were taken at this site. We went back to the antrum. Antrum had mild inflammation. Biopsies were taken here with cold biopsy forceps, and then on retroflexion, there was very small hiatal hernia but no other abnormalities. We withdrew the scope into the GE junction and there was some inflammation at the distal esophagus. Therefore, biopsies of the GE junction and distal esophagus were taken with cold forceps. The scope was withdrawn. At about 25 mm from the incisors, there was a small diverticulum. Photograph was taken at this site, but the rest of the esophagus appeared to be normal. I withdrew the scope until about 15, and again, there was a stricture at the site. At this point, the stricture was biopsied with cold forceps and then we decided to dilate the stricture further with a 12, 13.5 mm balloon dilator. This balloon dilator was advanced and we only dilated the stricture to 13.5 mm. At this point, the scope was advanced again past the stricture and it seemed to have opened up enough. There was moderate mucosal breakage, but there was no active bleeding. At this point, the scope was withdrawn completely, and the procedure was concluded. The patient tolerated the procedure well. At the end of the procedure, the patient was awoken from monitored anesthesia and taken to the PACU for further recovery. The patient may start his aspirin tonight and follow up in clinic in 2 weeks to discuss his symptoms and results of the pathology. ANESTHESIA: FILIPPO /[id number] PATI
[2019-05-19] MEDS ORDERED: Ondansetron 4 MG/2 ML SDV IVPUSH ONE (10:37)
[2019-05-19 11:54] VITALS: BP 131/69; PULSE 60
== END 2019-05-19 11:31 | disposition home or self-care (01) ==
LOC: JD.SDS 07:09
PROVIDERS: ATTEND Surgery
DX: K22.2 Esophageal obstruction (principal); K44.9 Diaphragmatic hernia without obstruction or gangrene; K29.70 Gastritis, unspecified, without bleeding; J44.9 Chronic obstructive pulmonary disease, unspecified; I12.9 Hypertensive chronic kidney disease with stage 1 through stage 4 chronic kidney disease, or unspecified chronic kidney disease; E11.22 Type 2 diabetes mellitus with diabetic chronic kidney disease; N18.3 Chronic kidney disease, stage 3 (moderate); E11.42 Type 2 diabetes mellitus with diabetic polyneuropathy; M19.90 Unspecified osteoarthritis, unspecified site; K21.9 Gastro-esophageal reflux disease without esophagitis; E78.5 Hyperlipidemia, unspecified; Z88.0 Allergy status to penicillin; Z88.8 Allergy status to other drugs, medicaments and biological substances; Z87.891 Personal history of nicotine dependence; Z88.1 Allergy status to other antibiotic agents
CPT/HCPCS: 43239; 43249; 82962; 90662; A9270; J2001; J2405; J2704; J7120; 00731

== ENCOUNTER 2019-05-21 09:11 | Emergency (ER) | payer MEDICARE, BC ==
[2019-05-21 09:22] VITALS: BP 157/98; PULSE 87
[2019-05-21] MEDS ORDERED: Acetaminophen 325 MG Tab PO ONE (10:19)
--- NOTE | 2019-05-21 11:05 | CR ---
Abdomen: Supine and upright views of the abdomen were obtained. Comparison: Previous abdominal x-ray of 03/25/19. Scattered gas within colon and small bowel is seen. This appears within normal limits. Minimal stool is scattered within the colon. Previous left hip surgery is noted. Severe joint space narrowing is noted within the left hip. Aortoiliac stent is present. Previous vertebroplasty is seen. Scattered compression deformities are noted within the spine which are stable. No free air is seen. Impression: 1. Incidental findings as noted above. Nothing acute is appreciated. Diagnostic code #2
--- NOTE | 2019-05-21 11:49 | EDM.PDOC ---
ED HPI GENERAL MEDICAL PROBLEM - General Chief Complaint: Gastrointestinal Problem Stated Complaint: CONSTIPATED Time Seen by Provider: 05/21/19 09:49 Source of Information: Reports: Patient, RN Notes Reviewed - History of Present Illness INITIAL COMMENTS - FREE TEXT/NARRATIVE: 88-year-old is constipated. His last decent BM was about 3 days ago. He states he feels like he has to go but can't go. Slight lower abdominal and rectal pressure. No upper abdominal pain nausea or vomiting. No chest pain or difficulty breathing. Rectal Pain Score (Numeric/FACES): 5 - Related Data Allergies Allergy/AdvReac Type Severity Reaction Status Date / Time ampicillin Allergy Hives Verified 05/24/19 09:27 levofloxacin [From Levaquin] Allergy Rash Verified 05/24/19 09:27 Penicillins Allergy Hives Verified 05/24/19 09:27 tetracycline Allergy Cannot Verified 05/24/19 09:27 Remember atorvastatin [From Lipitor] AdvReac Body Aches Verified 05/24/19 09:27 lovastatin AdvReac Body Aches Verified 05/24/19 09:27 pravastatin AdvReac Body Aches Verified 05/24/19 09:27 Home Meds: Home Meds Acetaminophen with Codeine [Tylenol with Codeine #3 Tablet] 2 tab PO Q6H PRN 06/24 [History] Albuterol Sulfate [Albuterol Sulfate Hfa] 2 puff INH Q4H PRN 05/16/19 [History] Albuterol [Proventil Neb Soln] 1 dose NEB QID PRN 05/16/19 [History] Aspirin [Halfprin] 81 mg PO DAILY 05/16/19 [History] Budesonide [Pulmicort] 1 dose NEB DAILY 05/16/19 [History] Calcium Carbonate [Tums] 400 mg PO BID PRN 05/16/19 [History] Cyanocobalamin (Vitamin B-12) [Vitamin B-12] 1,000 mcg PO DAILY 05/16/19 [ History] Finasteride 5 mg PO DAILY 05/16/19 [History] Fish Oil/[place]-3 Fatty Acids [Fish Oil 1,000 MG] 1 gm PO DAILY 05/16/19 [History ] Furosemide 20 mg PO DAILY 05/16/19 [History] Isosorbide Mononitrate [Imdur] 15 mg PO DAILY 05/16/19 [History] Levocetirizine Dihydrochloride 2.5 mg PO DAILY 05/16/19 [History] Metoprolol Succinate 25 mg PO DAILY 05/16/19 [History] Pantoprazole Sodium [Protonix] 40 mg PO DAILY 05/16/19 [History] Polyethylene Glycol 3350 [Clearlax] 1 dose PO ASDIRECTED PRN 05/16/19 [History] Rosuvastatin Calcium 10 mg PO DAILY 05/16/19 [History] Past Medical History HEENT History: Reports: Hard of Hearing, Impaired Vision Other HEENT History: Wears glasses, dentures, hearing aids Cardiovascular History: Reports: Afib, Aneurysm, Blood Clots/VTE/DVT, CAD, Cardiomyopathy, Heart Failure, Hypertension, [place], PVD Other Cardiovascular History: carotid stenosis, dvt x2 Respiratory History: Reports: COPD, Other (See Below) Other Respiratory History: LUNG MASS Gastrointestinal History: Reports: Diverticulosis, GERD Other Gastrointestinal History: increased bilirubin, dysphagia Genitourinary History: Reports: BPH, Retention, Urinary Other Genitourinary History: renal insufficiency, retention, CKD III 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 Musculoskeletal History: Reports: Fracture, Osteoarthritis Other Musculoskeletal History: rib fracture, degenrative joint disease, vertebral fracture, hand pain, stress fracture Neurological History: Reports: Neuropathy, Peripheral, Other (See Below) Other Neuro History: cerviclagia Psychiatric History: Reports: None Endocrine/Metabolic History: Reports: Diabetes, Type II Hematologic History: Reports: Anemia Immunologic History: Reports: None Oncologic (Cancer) History: Reports: Colon Dermatologic History: Reports: Other (See Below) Other Dermatologic History: actinic keratosis, skin lesion, cryosurgery - Past Surgical History Head Surgeries/Procedures: Reports: None HEENT Surgical History: Reports: Cataract Surgery, Laser Surgery Cardiovascular Surgical History: Reports: AAA Repair, Coronary Artery Bypass Respiratory Surgical History: Reports: None GI Surgical History: Reports: Appendectomy, Colon, Colonoscopy, EGD, Hernia, Inguinal Other GI Surgeries/Procedures: colon resection Male Surgical History: Reports: None, Prostatectomy Endocrine Surgical History: Reports: None Neurological Surgical History: Reports: Laminectomy, Vertebroplasty Musculoskeletal Surgical History: Reports: Other (See Below) Other Musculoskeletal Surgeries/Procedures:: hip repair- IM nailing Oncologic Surgical History: Reports: None Social & Family History - Family History Family Medical History: Noncontributory - Tobacco Use Smoking Status *Q: Never Smoker - Caffeine Use Caffeine Use: Reports: None - Recreational Drug Use Recreational Drug Use: No - Living Situation & Occupation Living situation: Reports: , with Spouse Occupation: Retired ED ROS GENERAL - Review of Systems Review Of Systems: See Below Constitutional: Denies: Fever, Chills HEENT: Reports: No Symptoms Respiratory: Denies: Shortness of Breath Cardiovascular: Denies: Chest Pain GI/Abdominal: Reports: Abdominal Pain (mild lower rectal pressure), Constipation. Denies: Diarrhea, Hematochezia, Melena, Nausea, Vomiting Musculoskeletal: Denies: Back Pain Skin: Reports: No Symptoms Neurological: Reports: No Symptoms ED EXAM, GI/ABD - Physical Exam Exam: See Below General Appearance: Alert, No Apparent Distress Throat/Mouth: Normal Inspection Head: Atraumatic Neck: Supple Respiratory/Chest: No Respiratory Distress, Lungs Clear, Normal Breath Sounds Cardiovascular: Regular Rate, Rhythm GI/Abdominal Exam: Soft, Non-Tender Rectal (Males) Exam: Other (large amount of firm brown stool in upper rectum, no other mass palpable) Extremities: Normal Inspection, Normal Range of Motion Skin Exam: Warm, Dry, Normal Color Course - Vital Signs Last Recorded V/S: Last Vital Signs Temp 97.8 F 05/21/19 09:21 Pulse 87 05/21/19 09:21 Resp 18 05/21/19 09:21 BP 157/98 H 05/21/19 09:21 Pulse Ox 98 05/21/19 09:21 - Orders/Labs/Meds Meds: Medications Discontinued Medications Generic Name Dose Route Start Last Admin Trade Name Rafael PRN Reason Stop Dose Admin Acetaminophen 975 mg 05/21/19 10:19 05/21/19 10:44 Tylenol PO 05/21/19 10:20 975 mg NOW ONE Administration - Re-Assessments/Exams Free Text/Narrative Re-Assessment/Exam: 05/26/19 18:28 good results from soap suds enema Departure - Departure Time of Disposition: 11:47 Disposition: Home, Self-Care 01 Condition: Fair Clinical Impression: Constipation Qualifiers: Constipation type: unspecified constipation type Qualified Code(s): K59.00 - Constipation, unspecified - Discharge Information Instructions: Constipation, Adult Referrals: Oscar Chatman MD [Primary Care Provider] - Forms: ED Department Discharge Additional Instructions: Drink plenty of water to maintain hydration, a Colace stool softener one capsule twice daily for the next 3 days and than once daily, continue your laxative once or twice daily as needed, follow up clinic as needed, return to ED as needed.
== END 2019-05-21 12:05 | disposition home or self-care (01) ==
LOC: JD.ED 09:11
DX: K59.00 Constipation, unspecified (principal); I13.0 Hypertensive heart and chronic kidney disease with heart failure and stage 1 through stage 4 chronic kidney disease, or unspecified chronic kidney disease; E11.22 Type 2 diabetes mellitus with diabetic chronic kidney disease; N18.3 Chronic kidney disease, stage 3 (moderate); I50.9 Heart failure, unspecified; I25.2 Old myocardial infarction; Z88.1 Allergy status to other antibiotic agents; Z88.0 Allergy status to penicillin; Z88.8 Allergy status to other drugs, medicaments and biological substances; Z79.899 Other long term (current) drug therapy; Z79.82 Long term (current) use of aspirin; Z86.718 Personal history of other venous thrombosis and embolism
CPT/HCPCS: 74019; 99283; A9270; 99282

== ENCOUNTER 2019-05-24 09:18 | Emergency (ER) | payer MEDICARE, BC ==
[2019-05-24 09:31] VITALS: BP 131/90; PULSE 77
[2019-05-24] MEDS ORDERED: Magnesium Citrate Solution 296 ML Bottle PO ONE (09:58)
--- NOTE | 2019-05-24 09:59 | EDM.PDOC ---
ED HPI GENERAL MEDICAL PROBLEM - General Chief Complaint: Gastrointestinal Problem Stated Complaint: STILL CONSTIPATED Time Seen by Provider: 05/24/19 09:42 Source of Information: Reports: Patient, RN Notes Reviewed - History of Present Illness INITIAL COMMENTS - FREE TEXT/NARRATIVE: 88-year-old male comes in with complaint of constipation. He states he has had no BM now for about 3 or 4 days. He was evaluated here in the ED about 4 days ago with similar complaints and at that time was found to be moderately impacted. He was given a soapsuds enema and had excellent results with that. Is advised to start taken stool softener once or twice a day and then continue with the Ex-Lax that he had previously been taking. Liver he misunderstood, has been taking the stool softener but has not been taking any further laxative. Is no abdominal pain at this time. No nausea or vomiting. His been eating and drinking okay. No other concerns at this time. Left Lower Abdomen Pain Score (Numeric/FACES): 4 - Related Data Allergies Allergy/AdvReac Type Severity Reaction Status Date / Time ampicillin Allergy Hives Verified 05/24/19 09:27 levofloxacin [From Levaquin] Allergy Rash Verified 05/24/19 09:27 Penicillins Allergy Hives Verified 05/24/19 09:27 tetracycline Allergy Cannot Verified 05/24/19 09:27 Remember atorvastatin [From Lipitor] AdvReac Body Aches Verified 05/24/19 09:27 lovastatin AdvReac Body Aches Verified 05/24/19 09:27 pravastatin AdvReac Body Aches Verified 05/24/19 09:27 Home Meds: Home Meds Acetaminophen with Codeine [Tylenol with Codeine #3 Tablet] 2 tab PO Q6H PRN 06/24 [History] Albuterol Sulfate [Albuterol Sulfate Hfa] 2 puff INH Q4H PRN 05/16/19 [History] Albuterol [Proventil Neb Soln] 1 dose NEB QID PRN 05/16/19 [History] Aspirin [Halfprin] 81 mg PO DAILY 05/16/19 [History] Budesonide [Pulmicort] 1 dose NEB DAILY 05/16/19 [History] Calcium Carbonate [Tums] 400 mg PO BID PRN 05/16/19 [History] Cyanocobalamin (Vitamin B-12) [Vitamin B-12] 1,000 mcg PO DAILY 05/16/19 [ History] Finasteride 5 mg PO DAILY 05/16/19 [History] Fish Oil/[place]-3 Fatty Acids [Fish Oil 1,000 MG] 1 gm PO DAILY 05/16/19 [History ] Furosemide 20 mg PO DAILY 05/16/19 [History] Isosorbide Mononitrate [Imdur] 15 mg PO DAILY 05/16/19 [History] Levocetirizine Dihydrochloride 2.5 mg PO DAILY 05/16/19 [History] Metoprolol Succinate 25 mg PO DAILY 05/16/19 [History] Pantoprazole Sodium [Protonix] 40 mg PO DAILY 05/16/19 [History] Polyethylene Glycol 3350 [Clearlax] 1 dose PO ASDIRECTED PRN 05/16/19 [History] Rosuvastatin Calcium 10 mg PO DAILY 05/16/19 [History] Past Medical History HEENT History: Reports: Hard of Hearing, Impaired Vision Other HEENT History: Wears glasses, dentures, hearing aids Cardiovascular History: Reports: Afib, Aneurysm, Blood Clots/VTE/DVT, CAD, Cardiomyopathy, Heart Failure, Hypertension, [place], PVD Other Cardiovascular History: carotid stenosis, dvt x2 Respiratory History: Reports: COPD, Other (See Below) Other Respiratory History: LUNG MASS Gastrointestinal History: Reports: Diverticulosis, GERD Other Gastrointestinal History: increased bilirubin, dysphagia Genitourinary History: Reports: BPH, Retention, Urinary Other Genitourinary History: renal insufficiency, retention, CKD III 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 Musculoskeletal History: Reports: Fracture, Osteoarthritis Other Musculoskeletal History: rib fracture, degenrative joint disease, vertebral fracture, hand pain, stress fracture Neurological History: Reports: Neuropathy, Peripheral, Other (See Below) Other Neuro History: cerviclagia Psychiatric History: Reports: None Endocrine/Metabolic History: Reports: Diabetes, Type II Hematologic History: Reports: Anemia Immunologic History: Reports: None Oncologic (Cancer) History: Reports: Colon Dermatologic History: Reports: Other (See Below) Other Dermatologic History: actinic keratosis, skin lesion, cryosurgery - Past Surgical History Head Surgeries/Procedures: Reports: None HEENT Surgical History: Reports: Cataract Surgery, Laser Surgery Cardiovascular Surgical History: Reports: AAA Repair, Coronary Artery Bypass Respiratory Surgical History: Reports: None GI Surgical History: Reports: Appendectomy, Colon, Colonoscopy, EGD, Hernia, Inguinal Other GI Surgeries/Procedures: colon resection Male Surgical History: Reports: None, Prostatectomy Endocrine Surgical History: Reports: None Neurological Surgical History: Reports: Laminectomy, Vertebroplasty Musculoskeletal Surgical History: Reports: Other (See Below) Other Musculoskeletal Surgeries/Procedures:: hip repair- IM nailing Oncologic Surgical History: Reports: None Social & Family History - Family History Family Medical History: Noncontributory - Tobacco Use Smoking Status *Q: Former Smoker Years of Tobacco use: 60 Packs/Tins Daily: 4 Used Tobacco, but Quit: Yes Month/Year Tobacco Last Used: 05/2004 - Caffeine Use Caffeine Use: Reports: Coffee - Recreational Drug Use Recreational Drug Use: No - Living Situation & Occupation Living situation: Reports: , with Spouse Occupation: Retired ED ROS GENERAL - Review of Systems Review Of Systems: See Below Constitutional: Denies: Fever, Chills, Diaphoresis HEENT: Reports: No Symptoms Respiratory: Denies: Shortness of Breath Cardiovascular: Denies: Chest Pain GI/Abdominal: Reports: Constipation. Denies: Abdominal Pain, Nausea, Vomiting Musculoskeletal: Reports: No Symptoms Skin: Reports: No Symptoms ED EXAM, GI/ABD - Physical Exam Exam: See Below General Appearance: Alert, No Apparent Distress Throat/Mouth: Normal Inspection Head: Sinus Tenderness Neck: Supple Respiratory/Chest: No Respiratory Distress, Lungs Clear Cardiovascular: Regular Rate, Rhythm GI/Abdominal Exam: Soft, Non-Tender. No: Distended Skin Exam: Warm, Dry, Normal Color Course - Vital Signs Last Recorded V/S: Last Vital Signs Temp 98.5 F 05/24/19 09:27 Pulse 77 05/24/19 09:27 Resp 16 05/24/19 09:27 BP 131/90 05/24/19 09:27 Pulse Ox 96 05/24/19 09:27 - Orders/Labs/Meds Meds: Medications Discontinued Medications Generic Name Dose Route Start Last Admin Trade Name Freq PRN Reason Stop Dose Admin Magnesium Citrate 296 ml 05/24/19 09:58 05/24/19 10:12 Citrate Of Magnesia PO 05/24/19 09:59 296 ml ONETIME ONE Administration Departure - Departure Time of Disposition: 09:55 Disposition: Home, Self-Care 01 Condition: Fair Clinical Impression: Constipation Qualifiers: Constipation type: unspecified constipation type Qualified Code(s): K59.00 - Constipation, unspecified - Discharge Information Instructions: Constipation, Adult, [id number] Referrals: Oscar Chatman MD [Primary Care Provider] - Forms: ED Department Discharge Additional Instructions: Continue taking the stool softener once or twice daily as discussed on your previous visit. We are sending home a bottle of mag citrate, which is a powerful laxative. Drink one half of the bottle this morning. If you have not had a BM by 4:00 this afternoon drink the remainder. Continue to take the Xlax laxative that you had been using starting tomorrow once or twice daily as needed along with the stool softner. Follow up clinic as needed, return to ED as needed.
== END 2019-05-24 10:16 | disposition home or self-care (01) ==
LOC: JD.ED 09:18
DX: K59.00 Constipation, unspecified (principal); J44.9 Chronic obstructive pulmonary disease, unspecified; I25.2 Old myocardial infarction; I48.91 Unspecified atrial fibrillation; I25.10 Atherosclerotic heart disease of native coronary artery without angina pectoris; E11.22 Type 2 diabetes mellitus with diabetic chronic kidney disease; I13.0 Hypertensive heart and chronic kidney disease with heart failure and stage 1 through stage 4 chronic kidney disease, or unspecified chronic kidney disease; N18.3 Chronic kidney disease, stage 3 (moderate); D63.1 Anemia in chronic kidney disease; I50.9 Heart failure, unspecified; N40.0 Benign prostatic hyperplasia without lower urinary tract symptoms; K21.9 Gastro-esophageal reflux disease without esophagitis; Z86.718 Personal history of other venous thrombosis and embolism; E11.42 Type 2 diabetes mellitus with diabetic polyneuropathy; Z88.0 Allergy status to penicillin; Z88.1 Allergy status to other antibiotic agents; Z88.8 Allergy status to other drugs, medicaments and biological substances; Z79.82 Long term (current) use of aspirin; Z79.51 Long term (current) use of inhaled steroids; Z79.899 Other long term (current) drug therapy; Z87.891 Personal history of nicotine dependence
CPT/HCPCS: 99283; A9270

== ENCOUNTER 2019-06-15 07:29 | Emergency (ER) | payer MEDICARE, BC ==
[2019-06-15] MEDS ORDERED: Acetaminophen 325 MG Tab PO ONE (07:54)
--- NOTE | 2019-06-15 07:58 | EDM.PDOC ---
ED HPI GENERAL MEDICAL PROBLEM - General Chief Complaint: Diabetic Complaint Stated Complaint: HIGH TEMP,BLOOD SUGAR LOW Time Seen by Provider: 06/15/19 07:53 Source of Information: Reports: Patient, Family (friend) History Limitations: Reports: No Limitations - History of Present Illness INITIAL COMMENTS - FREE TEXT/NARRATIVE: 88-year-old male presents to the ED with nonspecific complaints. He is just generally doesn't feel well. He believes she's been running a low-grade fever and complains of intermittent chills 24 hours. He was worried about his blood sugars but her blood sugar this morning is 120. He is a type II diabetic. He has a cough which he states he usually has and is no worse than normal. He has tachypnea cover at 24/m. O2 sats are 100% on room air. Occasional sputum production no blood. Patient is currently being treated for a bladder cancer which was diagnosed 3 weeks ago. Is due to go back on this week for recheck with the urologist. Does have some dysuria and pain with voiding. No backache. He is complaining of a sore neck for the last 3 days. No recent falls or injuries. He has not taken any medication for neck pain. Decreased appetite. Not noticed any gross hematuria. Onset: Gradual Onset Date: 06/12/19 (Cervical neck pain over the last 3 days. Dysuria for the better part of a week.) Duration: Day(s):, Getting Worse Location: Reports: Neck (Neck pain 3 days.), Other (Dysuria or painful urination for a week) Quality: Reports: Ache, Sharp, Stabbing Severity: Moderate (Neck pain at 5 out of 10) Improves with: Reports: Rest Worsens with: Reports: Other (Movement of his head or neck.), Movement Context: Denies: Activity, Exercise ( The urination.), Lifting, Sick Contact, Trauma, Other Associated Symptoms: Reports: Cough, cough w sputum, Fever/Chills, Loss of Appetite, Malaise, Shortness of Breath, Weakness. Denies: No Other Symptoms, Confusion, Chest Pain, Diaphoresis, Headaches (Complains of chills. 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 (see below) Posterior Neck Pain Score (Numeric/FACES): 8 - Related Data Allergies Allergy/AdvReac Type Severity Reaction Status Date / Time ampicillin Allergy Hives Verified 06/15/19 07:50 levofloxacin [From Levaquin] Allergy Rash Verified 06/15/19 07:50 Penicillins Allergy Hives Verified 06/15/19 07:50 tetracycline Allergy Cannot Verified 06/15/19 07:50 Remember atorvastatin [From Lipitor] AdvReac Body Aches Verified 06/15/19 07:50 lovastatin AdvReac Body Aches Verified 06/15/19 07:50 pravastatin AdvReac Body Aches Verified 06/15/19 07:50 Home Meds: Home Meds Acetaminophen with Codeine [Tylenol with Codeine #3 Tablet] 2 tab PO Q6H PRN 06/24 [History] Albuterol Sulfate [Albuterol Sulfate Hfa] 2 puff INH Q4H PRN 05/16/19 [History] Albuterol [Proventil Neb Soln] 1 dose NEB QID PRN 05/16/19 [History] Aspirin [Halfprin] 81 mg PO DAILY 05/16/19 [History] Budesonide [Pulmicort] 1 dose NEB DAILY 05/16/19 [History] Calcium Carbonate [Tums] 400 mg PO BID PRN 05/16/19 [History] Cyanocobalamin (Vitamin B-12) [Vitamin B-12] 1,000 mcg PO DAILY 05/16/19 [ History] Finasteride 5 mg PO DAILY 05/16/19 [History] Fish Oil/Perkins-3 Fatty Acids [Fish Oil 1,000 MG] 1 gm PO DAILY 05/16/19 [History ] Furosemide 20 mg PO DAILY 05/16/19 [History] Isosorbide Mononitrate [Imdur] 15 mg PO DAILY 05/16/19 [History] Metoprolol Succinate 25 mg PO DAILY 05/16/19 [History] Pantoprazole Sodium [Protonix] 40 mg PO DAILY 05/16/19 [History] Rosuvastatin Calcium 10 mg PO DAILY 05/16/19 [History] Furosemide [Lasix] 40 mg PO DAILY #30 tab 06/15/19 [Rx] Magnesium Chloride [Slow-Mag] 71.5 mg PO DAILY #30 tablet 06/15/19 [Rx] levoFLOXacin [Levaquin] 500 mg PO DAILY #9 tab 06/15/19 [Rx] Past Medical History HEENT History: Reports: Hard of Hearing, Impaired Vision Other HEENT History: Wears glasses, dentures, hearing aids Cardiovascular History: Reports: Afib, Aneurysm, Blood Clots/VTE/DVT, CAD, Cardiomyopathy, Heart Failure, Hypertension, HI, PVD Other Cardiovascular History: carotid stenosis, dvt x2 Respiratory History: Reports: COPD, Other (See Below) Other Respiratory History: LUNG MASS Gastrointestinal History: Reports: Diverticulosis, GERD Other Gastrointestinal History: increased bilirubin, dysphagia Genitourinary History: Reports: BPH, Retention, Urinary Other Genitourinary History: renal insufficiency, retention, CKD III 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 Musculoskeletal History: Reports: Fracture, Osteoarthritis Other Musculoskeletal History: rib fracture, degenrative joint disease, vertebral fracture, hand pain, stress fracture Neurological History: Reports: Neuropathy, Peripheral, Other (See Below) Other Neuro History: cerviclagia Psychiatric History: Reports: None Endocrine/Metabolic History: Reports: Diabetes, Type II Hematologic History: Reports: Anemia Immunologic History: Reports: None Oncologic (Cancer) History: Reports: Colon Dermatologic History: Reports: Other (See Below) Other Dermatologic History: actinic keratosis, skin lesion, cryosurgery - Past Surgical History Head Surgeries/Procedures: Reports: None HEENT Surgical History: Reports: Cataract Surgery, Laser Surgery Cardiovascular Surgical History: Reports: AAA Repair, Coronary Artery Bypass Respiratory Surgical History: Reports: None GI Surgical History: Reports: Appendectomy, Colon, Colonoscopy, EGD, Hernia, Inguinal Other GI Surgeries/Procedures: colon resection Male Surgical History: Reports: None, Prostatectomy Endocrine Surgical History: Reports: None Neurological Surgical History: Reports: Laminectomy, Vertebroplasty Musculoskeletal Surgical History: Reports: Other (See Below) Other Musculoskeletal Surgeries/Procedures:: hip repair- IM nailing Oncologic Surgical History: Reports: None Social & Family History - Family History Family Medical History: Noncontributory - Caffeine Use Caffeine Use: Reports: Coffee - Living Situation & Occupation Living situation: Reports: , with Spouse Occupation: Retired ED ROS GENERAL - Review of Systems Review Of Systems: See Below Constitutional: Reports: Fever, Chills, Malaise, Weakness, Fatigue, Decreased Appetite HEENT: Reports: Glasses, Hearing Loss. Denies: Nosebleed, Nose Pain, Rhinitis, Sinus Problem, Throat Pain, Throat Swelling Respiratory: Reports: Shortness of Breath, Cough, Sputum. Denies: Wheezing, Pleuritic Chest Pain Cardiovascular: Reports: Blood Pressure Problem, Dyspnea on Exertion, Lightheadedness. Denies: Chest Pain, Claudication, Edema, Orthopnea, Palpitations Endocrine: Reports: Fatigue GI/Abdominal: Reports: Constipation, Decreased Appetite. Denies: Abdominal Pain , Diarrhea (Instrument medicine it cleaned out yesterday.), Distension, Flatus, Hematemesis, Hematochezia, Mucous in Stool, Nausea, Stool Incontinence, Vomiting , Other : Reports: Dysuria, Frequency, Urgency. Denies: Discharge, Hematuria, Incontinence, Irregular Menses, Pain, Urinary Retention Musculoskeletal: Reports: Neck Pain, Shoulder Pain, Back Pain (Knees hips lower back), Joint Pain Skin: Reports: No Symptoms Neurological: Reports: No Symptoms Psychiatric: Reports: No Symptoms Hematologic/Lymphatic: Reports: No Symptoms Immunologic: Reports: No Symptoms ED EXAM GENERAL NO PERIP PULSE - Physical Exam Exam: See Below Exam Limited By: No Limitations General Appearance: WD/WN, No Apparent Distress, Other (Vital signs show temperature 36.9. Pulse 82 and sinus respiratory is 24/m with O2 sats by 100% on room air. BP is 147/99.) Eye Exam: Bilateral Eye: Normal Inspection (No scleral icterus or peripheral pallor.), PERRL Throat/Mouth: Normal Inspection, Normal Lips, Normal Oropharynx Head: Atraumatic, Normocephalic Neck: Limited Range of Motion (Tender both sides of his neck. Limited range of motion), Tender Lateral. No: Non-Tender, Full Range of Motion, Carotid Bruit, Lymphadenopathy (L), Lymphadenopathy (R) Respiratory/Chest: No Respiratory Distress, No Accessory Muscle Use, Respiratory Distress (Mild tachypnea at rest.), Decreased Breath Sounds, Rhonchi (Scattered rhonchi both lung bases i.e. improves with deep breathing suspect atelectasis.). No: Normal Breath Sounds Cardiovascular: Regular Rate, Rhythm, No Edema, No Gallop, No Murmur, No Rub, Other (Well-healed midline sternotomy incision.). No: Normal Peripheral Pulses (Mildly decreased in the lower 20% of lung moe bilaterally.) GI/Abdominal: Normal Bowel Sounds, Soft, Non-Tender, No Organomegaly, No Mass, Other (Has had bilateral inguinal herniorrhaphies and appendectomy.) Back Exam: Normal Inspection, Decreased Range of Motion, Vertebral Tenderness ( Lumbar spine.). No: CVA Tenderness (L), CVA Tenderness (R) Extremities: No Pedal Edema, Increased Warmth. No: Normal Range of Motion, Pedal Edema (Both knees.) Neurological: Alert, Oriented, CN II-XII Intact, Normal Cognition Psychiatric: Normal Affect, Normal Mood Skin Exam: Warm, Dry, Intact, Normal Color, No Rash EKG INTERPRETATION EKG Date: 06/15/19 Time: 08:43 Rhythm: NSR Rate (Beats/Min): 90 [place]: Normal P-Wave: Present (P-wave is inverted in leads 1 and V2.) QRS: Other (Q waves V1 and V2 consider old anteroseptal myocardial infarction. Early R-wave transition consider septal hypertrophy pattern. Nonspecific Q-wave in aVL. Decreased voltage in limb leads) ST-T: Other (T-wave flattening in 1, aVL and V3.) QT: Prolonged (Moderately prolonged) EKG Interpretation Comments: Abnormal ECG Course - Vital Signs Last Recorded V/S: Last Vital Signs Temp 36.9 C 06/15/19 07:41 Pulse 82 06/15/19 07:41 Resp 24 H 06/15/19 07:41 BP 147/99 H 06/15/19 07:41 Pulse Ox 100 06/15/19 07:41 - Orders/Labs/Meds Orders: Active Orders 24 hr Category Date Time Status Blood Glucose Check, Bedside [RC] ONETIME Care 06/15/19 07:55 Active EKG Documentation Completion [RC] STAT Care 06/15/19 07:55 Active Chest 1V Frontal [CR] Stat Exams 06/15/19 07:55 Taken CULTURE BLOOD [BC] Stat Lab 06/15/19 08:20 Received CULTURE BLOOD [BC] Stat Lab 06/15/19 08:35 Received CULTURE URINE [RM] Stat Lab 06/15/19 08:40 Received Sodium Chloride 0.9% [Normal Saline] 1,000 ml Med 06/15/19 08:00 Active IV ASDIRECTED Blood Culture x2 Reflex Set [OM.PC] Stat Oth 06/15/19 07:55 Ordered Medication Orders Sodium Chloride (Normal Saline) 1,000 mls @ 75 mls/hr IV ASDIRECTED CRISTIANO Last Admin: 06/15/19 08:14 Dose: 75 mls/hr Labs: Laboratory Tests 06/15/19 06/15/19 06/15/19 Range/Units 08:20 08:20 08:20 WBC 6.01 (4.23-9.07) K/mm3 RBC 4.09 L (4.63-6.08) M/mm3 Hgb 11.4 L (13.7-17.5) gm/dl Hct 35.9 L (40.1-51.0) % MCV 87.8 (79.0-92.2) fl MCH 27.9 (25.7-32.2) pg MCHC 31.8 L (32.2-35.5) g/dl RDW Std Deviation 45.7 H (35.1-43.9) fL Plt Count 204 (163-337) K/mm3 MPV 10.7 (9.4-12.3) fl Neutrophils % (Manual) 76 H (40-60) % Band Neutrophils % 0 (0-10) % Lymphocytes % (Manual) 12 L (20-40) % Atypical Lymphs % 0 % Monocytes % (Manual) 10 (2-10) % Eosinophils % (Manual) 2 (0.8-7.0) % Basophils % (Manual) 0 L (0.2-1.2) Platelet Estimate Adequate Hypochromasia 1+ slight Anisocytosis 2+ moderate Microcytosis 2+ moderate RBC Morph Comment Abnormal PT 10.9 (9.7-12.0) SECONDS INR 1.00 Sodium 144 (136-145) mEq/L Potassium 4.0 (3.5-5.1) mEq/L Chloride 106 (98-107) mEq/L Carbon Dioxide 27 (21-32) mEq/L Anion Gap 15.0 (5-15) BUN 23 H (7-18) mg/dL Creatinine 1.4 H (0.7-1.3) mg/dL Est Cr Clr Drug Dosing 35.77 mL/min Estimated GFR (MDRD) 48 (>60) mL/min BUN/Creatinine Ratio 16.4 (14-18) Glucose 159 H (83-115) mg/dL POC Glucose (83-110) mg/dL Lactic Acid (0.4-2.1) mmol/L Calcium 8.9 (8.5-10.1) mg/dL Magnesium 1.6 L (1.8-2.4) mg/dl Total Bilirubin 1.6 H (0.2-1.0) mg/dL AST 18 (15-37) U/L ALT 19 (16-63) U/L Alkaline Phosphatase 107 (46-116) U/L CK-MB (CK-2) 2.1 (0-3.6) ng/ml Troponin I < 0.017 (0.00-0.056) ng/mL C-Reactive Protein 2.7 H* (<1.0) mg/dL NT-Pro-B Natriuret Pep (0-450) pg/mL Total Protein 8.0 (6.4-8.2) g/dl Albumin 3.6 (3.4-5.0) g/dl Globulin 4.4 gm/dL Albumin/Globulin Ratio 0.8 L (1-2) Urine Color (Yellow) Urine Appearance (Clear) Urine pH (5.0-8.0) Ur Specific [place] (1.005-1.030) Urine Protein (Negative) Urine Glucose (UA) (Negative) Urine Ketones (Negative) Urine Occult Blood (Negative) Urine Nitrite (Negative) Urine Bilirubin (Negative) Urine Urobilinogen (0.2-1.0) Ur Leukocyte Esterase (Negative) Urine RBC (0-5) /hpf Urine WBC (0-5) /hpf Urine WBC Clumps (NOT SEEN) /hpf Ur Epithelial Cells (0-5) /hpf Urine Bacteria (FEW) /hpf Urine Mucus (FEW) /hpf 06/15/19 06/15/19 06/15/19 Range/Units 08:20 08:35 08:40 WBC (4.23-9.07) K/mm3 RBC (4.63-6.08) M/mm3 Hgb (13.7-17.5) gm/dl Hct (40.1-51.0) % MCV (79.0-92.2) fl MCH (25.7-32.2) pg MCHC (32.2-35.5) g/dl RDW Std Deviation (35.1-43.9) fL Plt Count (163-337) K/mm3 MPV (9.4-12.3) fl Neutrophils % (Manual) (40-60) % Band Neutrophils % (0-10) % Lymphocytes % (Manual) (20-40) % Atypical Lymphs % % Monocytes % (Manual) (2-10) % Eosinophils % (Manual) (0.8-7.0) % Basophils % (Manual) (0.2-1.2) Platelet Estimate Hypochromasia Anisocytosis Microcytosis RBC Morph Comment PT (9.7-12.0) SECONDS INR Sodium (136-145) mEq/L Potassium (3.5-5.1) mEq/L Chloride (98-107) mEq/L Carbon Dioxide (21-32) mEq/L Anion Gap (5-15) BUN (7-18) mg/dL Creatinine (0.7-1.3) mg/dL Est Cr Clr Drug Dosing mL/min Estimated GFR (MDRD) (>60) mL/min BUN/Creatinine Ratio (14-18) Glucose (83-115) mg/dL POC Glucose (83-110) mg/dL Lactic Acid 1.1 (0.4-2.1) mmol/L Calcium (8.5-10.1) mg/dL Magnesium (1.8-2.4) mg/dl Total Bilirubin (0.2-1.0) mg/dL AST (15-37) U/L ALT (16-63) U/L Alkaline Phosphatase (46-116) U/L CK-MB (CK-2) (0-3.6) ng/ml Troponin I (0.00-0.056) ng/mL C-Reactive Protein (<1.0) mg/dL NT-Pro-B Natriuret Pep 1462 H (0-450) pg/mL Total Protein (6.4-8.2) g/dl Albumin (3.4-5.0) g/dl Globulin gm/dL Albumin/Globulin Ratio (1-2) Urine Color Yellow (Yellow) Urine Appearance Cloudy H (Clear) Urine pH 6.5 (5.0-8.0) Ur Specific [place] 1.015 (1.005-1.030) Urine Protein 1+ H (Negative) Urine Glucose (UA) Negative (Negative) Urine Ketones Negative (Negative) Urine Occult Blood 2+ H (Negative) Urine Nitrite Negative (Negative) Urine Bilirubin Negative (Negative) Urine Urobilinogen 0.2 (0.2-1.0) Ur Leukocyte Esterase 3+ H (Negative) Urine RBC 10-20 H (0-5) /hpf Urine WBC >100 H (0-5) /hpf Urine WBC Clumps Few (NOT SEEN) /hpf Ur Epithelial Cells Not seen (0-5) /hpf Urine Bacteria Few (FEW) /hpf Urine Mucus Rare (FEW) /hpf 06/15/19 Range/Units 09:08 WBC (4.23-9.07) K/mm3 RBC (4.63-6.08) M/mm3 Hgb (13.7-17.5) gm/dl Hct (40.1-51.0) % MCV (79.0-92.2) fl MCH (25.7-32.2) pg MCHC (32.2-35.5) g/dl RDW Std Deviation (35.1-43.9) fL Plt Count (163-337) K/mm3 MPV (9.4-12.3) fl Neutrophils % (Manual) (40-60) % Band Neutrophils % (0-10) % Lymphocytes % (Manual) (20-40) % Atypical Lymphs % % Monocytes % (Manual) (2-10) % Eosinophils % (Manual) (0.8-7.0) % Basophils % (Manual) (0.2-1.2) Platelet Estimate Hypochromasia Anisocytosis Microcytosis RBC Morph Comment PT (9.7-12.0) SECONDS INR Sodium (136-145) mEq/L Potassium (3.5-5.1) mEq/L Chloride (98-107) mEq/L Carbon Dioxide (21-32) mEq/L Anion Gap (5-15) BUN (7-18) mg/dL Creatinine (0.7-1.3) mg/dL Est Cr Clr Drug Dosing mL/min Estimated GFR (MDRD) (>60) mL/min BUN/Creatinine Ratio (14-18) Glucose (83-115) mg/dL POC Glucose 149 H (83-110) mg/dL Lactic Acid (0.4-2.1) mmol/L Calcium (8.5-10.1) mg/dL Magnesium (1.8-2.4) mg/dl Total Bilirubin (0.2-1.0) mg/dL AST (15-37) U/L ALT (16-63) U/L Alkaline Phosphatase (46-116) U/L CK-MB (CK-2) (0-3.6) ng/ml Troponin I (0.00-0.056) ng/mL C-Reactive Protein (<1.0) mg/dL NT-Pro-B Natriuret Pep (0-450) pg/mL Total Protein (6.4-8.2) g/dl Albumin (3.4-5.0) g/dl Globulin gm/dL Albumin/Globulin Ratio (1-2) Urine Color (Yellow) Urine Appearance (Clear) Urine pH (5.0-8.0) Ur Specific [place] (1.005-1.030) Urine Protein (Negative) Urine Glucose (UA) (Negative) Urine Ketones (Negative) Urine Occult Blood (Negative) Urine Nitrite (Negative) Urine Bilirubin (Negative) Urine Urobilinogen (0.2-1.0) Ur Leukocyte Esterase (Negative) Urine RBC (0-5) /hpf Urine WBC (0-5) /hpf Urine WBC Clumps (NOT SEEN) /hpf Ur Epithelial Cells (0-5) /hpf Urine Bacteria (FEW) /hpf Urine Mucus (FEW) /hpf Meds: Medications Generic Name Dose Route Start Last Admin Trade Name Freq PRN Reason Stop Dose Admin Sodium Chloride 1,000 mls @ 75 mls/hr 06/15/19 08:00 06/15/19 08:14 Normal Saline IV 75 mls/hr ASDIRECTED CRISTIANO Administration Discontinued Medications Generic Name Dose Route Start Last Admin Trade Name Freq PRN Reason Stop Dose Admin Acetaminophen 650 mg 06/15/19 07:54 06/15/19 08:13 Tylenol PO 06/15/19 07:55 650 mg ONETIME ONE Administration Furosemide 40 mg 06/15/19 09:48 06/15/19 09:56 Lasix IVPUSH 06/15/19 09:49 40 mg NOW ONE Administration Levofloxacin 500 mg 06/15/19 09:36 06/15/19 09:56 Levaquin PO 06/15/19 09:37 500 mg ONETIME ONE Administration - Radiology Interpretation Free Text/Narrative:: 88-year-old male attends the ED just generally not feeling well. Complaints of chills at home for the last 12-24 hours. He is not aware of any fever. Does not feel warm to palpation of this time and nurses record temperature 36.9. Does have a productive sounding cough at times. He states is no worse than normal. He complains of dysuria with urgency and frequency since having cystoscopy and fulguration of a bladder tumor 3 weeks ago by urology services. He is due to for recheck in 4 days time. He is a 2diabetic and blood sugar this morning was 120. Plan septic workup will be carried out as he is complaining of chills. Questionable whether or not there is a urinary tract infection. Chest x-ray times one view will be done. Patient has a history of right lower lobe pulmonary nodule. - Re-Assessments/Exams Free Text/Narrative Re-Assessment/Exam: 06/15/19 08:13 chest x-ray is essentially unchanged from previous films. There is slight blunting of the right costophrenic angle. Bilateral mild hyperinflated lungs. Cardiac silhouette upper limits of normal. Mildly tortuous thoracic aorta. Previously identified right pulmonary nodule is not as distinct on today's film is compared to previous. There is mild fibrosis right lower lobe. Patient reports that he never had any awareness of a pulmonary nodule or any treatment or biopsy of such a thing. 06/15/19 09:03 White count is 6.01. Differential is pending. Hemoglobin is 11.4 and hematocrit of 35.9. MCV is 87.8. Platelet count 204,000. Analysis shows cloudy urine 1+ proteinuria 2+ occult blood and 3+ leukocyte esterase. Urine culture ordered. 06/15/19 09:36 Differential on the white count is 76% neutrophils and no band cells reported. Slide shows 1+ hypochromasia 2+ anisocytosis and 2+ microcytosis. PT was 10.9 with an INR of 1.0. Chemistry revealed a sodium of 144 and a potassium of 4.0. Chloride is 106 bicarbonate 27. Anion gap is 15.0. BUN was 23 with a creatinine of 1.4. GFR is good at 48. Glucose 159 lactic acid 1.1. Calcium 8.9 magnesium slightly low at 1.6. Total bilirubin is 1.6 AST is 18 9 ALT is 19. CK-MB fraction is 2.1 with a troponin I of less than 0.017. C- reactive protein mildly elevated at 2.7. BNP is 1462. Micro-shows 10-20 RBCs and greater than 100 WBCs per high-power field with a few WBC clumps. Urine culture has been ordered 06/15/19 10:03 patient will be placed on Levaquin 500 mg once daily for the next 10 days. First tablets provided in the ED. His magnesium is slightly low and I will place him on Slow-Mag 71.5 mg tablet once daily for magnesium supplementation. The problem was mild increased in BNP indicating fluid retention. His renal function is somewhat tenuous with a creatinine 1.4. His serum potassium today is 4.0. Suggesting increasing his Lasix from 20-40 mg once daily every morning. He is for repeat lab testing with his primary care provider in 10-14 days. He is scheduled to see urologist later this week on in regards to his recent discovery of bladder tumor and recent fulguration. It appears that he most likely has some degree of infection in his prostate. Urine culture pending. He will be discharged to home. 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 Instructions: Hypomagnesemia, Heart Failure Referrals: Oscar Chatman MD [Primary Care Provider] - Forms: ED Department Discharge Additional Instructions: Evaluation the emergency room this morning in regards to generally not feeling well. No noted fever but have experienced some chills over the last 24 hours. Chest x-ray reveals a few crackles in both bases and lab tests revealed that there is slight worsening of fluid retention in the lungs. This means mild worsening of heart failure. Suggest increasing Lasix to 40 mg once daily every morning from 20 mg once morning. You may take 2 of the 20 mg tablets until they are gone and then fill prescription for the 40 mg tablet once daily. Follow-up with your personal physician in 2 weeks time to check on your potassium level and kidney function with increased dose of Lasix. Other findings were low magnesium level in the blood which helps the heart work better. Therefore you prescribed a magnesium supplement called Slow-Mag you're to take this once daily in the morning. Major problem today was urinary tract infection likely from recent instrumentation of the urinary tract for bladder cancer. You're therefore treated with Levaquin 500 mg in the ED and you will need to take take this tablet once every morning for the next 9 days starting tomorrow morning. May take Tylenol 650 mg every 6 hours if needed for fever or chill relief. SPECT improvement over the next 3 days. Follow-up with urologist on as planned. - My Orders Last 24 Hours: My Active Orders 06/15/19 07:55 Blood Glucose Check, Bedside [RC] ONETIME EKG Documentation Completion [RC] STAT Chest 1V Frontal [CR] Stat Blood Culture x2 Reflex Set [OM.PC] Stat 06/15/19 08:00 Sodium Chloride 0.9% [Normal Saline] 1,000 ml IV ASDIRECTED 06/15/19 08:20 CULTURE BLOOD [BC] Stat 06/15/19 08:35 CULTURE BLOOD [BC] Stat 06/15/19 08:40 CULTURE URINE [RM] Stat - Assessment/Plan Last 24 Hours: My Active Orders 06/15/19 07:55 Blood Glucose Check, Bedside [RC] ONETIME EKG Documentation Completion [RC] STAT Chest 1V Frontal [CR] Stat Blood Culture x2 Reflex Set [OM.PC] Stat 06/15/19 08:00 Sodium Chloride 0.9% [Normal Saline] 1,000 ml IV ASDIRECTED 06/15/19 08:20 CULTURE BLOOD [BC] Stat 06/15/19 08:35 CULTURE BLOOD [BC] Stat 06/15/19 08:40 CULTURE URINE [RM] Stat
[2019-06-15] MEDS ORDERED: Sodium Chloride 0.9% 1,000 ML IV SCH (08:00)
[2019-06-15] MEDS ORDERED: Levofloxacin 250 MG Tab PO ONE (09:36)
[2019-06-15] MEDS ORDERED: Furosemide 40 MG/4 ML VIAL IVPUSH ONE (09:48)
[2019-06-15 10:24] VITALS: BP 97/54; PULSE 88
--- NOTE | 2019-06-15 16:00 | CR ---
Chest: Portable view of the chest was obtained. Comparison: Prior chest x-ray of 03/29/19. Heart size within normal limits for portable technique. Upper mediastinum is within normal limits. Prior sternotomy is seen. Lungs are clear with no acute parenchymal change. Bony structures are osteopenic. Lucent line is identified along the right lateral chest. This is believed to be artifact rather than representing pneumothorax. Impression: 1. Nothing acute is appreciated on portable chest x-ray. Diagnostic code #2
== END 2019-06-15 10:15 | disposition home or self-care (01) ==
LOC: JD.ED 07:29
DX: I13.0 Hypertensive heart and chronic kidney disease with heart failure and stage 1 through stage 4 chronic kidney disease, or unspecified chronic kidney disease (principal); I50.43 Acute on chronic combined systolic (congestive) and diastolic (congestive) heart failure; E11.22 Type 2 diabetes mellitus with diabetic chronic kidney disease; N18.3 Chronic kidney disease, stage 3 (moderate); N30.01 Acute cystitis with hematuria; J43.1 Panlobular emphysema; I25.2 Old myocardial infarction; I25.10 Atherosclerotic heart disease of native coronary artery without angina pectoris; E11.42 Type 2 diabetes mellitus with diabetic polyneuropathy; Z88.1 Allergy status to other antibiotic agents; Z88.0 Allergy status to penicillin; Z88.8 Allergy status to other drugs, medicaments and biological substances; Z79.82 Long term (current) use of aspirin; Z79.51 Long term (current) use of inhaled steroids; Z79.899 Other long term (current) drug therapy
CPT/HCPCS: 36415; 71045; 80053; 81001; 82553; 82962; 83605; 83735; 83880; 84484; 85007; 85027; 85610; 86140; 87040; 87086; 87088; 87186; 93005; 96361; 96374; 99284; A9270; J1940; J7040; 93010; 99285

== ENCOUNTER 2019-06-17 20:29 | Emergency (ER) | payer MEDICARE, BC ==
[2019-06-17 20:59] VITALS: BP 129/97; PULSE 82
--- NOTE | 2019-06-17 21:04 | EDM.PDOC ---
ED HPI GENERAL MEDICAL PROBLEM - General Chief Complaint: Abdominal Pain Stated Complaint: STATED HE IS PLUGGED UP Time Seen by Provider: 06/17/19 20:47 Source of Information: Reports: Patient History Limitations: Reports: No Limitations - History of Present Illness INITIAL COMMENTS - FREE TEXT/NARRATIVE: Patient's unfortunate 88-year-old male presents to emergency Department today with complaint of sedation. Patient reports he was in his normal state of health until 3 days ago when he ordered having the patient reports he has not been L abdominoplasty days. Patient reports that he feels the stool down there but he is unable to evacuate his bowels. No nausea no vomiting tolerating by mouth food and fluids well no fever no chills no shortness of breath Left Leg Pain Score (Numeric/FACES): 9 - Related Data Allergies Allergy/AdvReac Type Severity Reaction Status Date / Time ampicillin Allergy Hives Verified 06/17/19 20:49 levofloxacin [From Levaquin] Allergy Rash Verified 06/17/19 20:49 Penicillins Allergy Hives Verified 06/17/19 20:49 tetracycline Allergy Cannot Verified 06/17/19 20:49 Remember atorvastatin [From Lipitor] AdvReac Body Aches Verified 06/17/19 20:49 lovastatin AdvReac Body Aches Verified 06/17/19 20:49 pravastatin AdvReac Body Aches Verified 06/17/19 20:49 Home Meds: Home Meds Acetaminophen with Codeine [Tylenol with Codeine #3 Tablet] 2 tab PO Q6H PRN 06/24 [History] Albuterol Sulfate [Albuterol Sulfate Hfa] 2 puff INH Q4H PRN 05/16/19 [History] Albuterol [Proventil Neb Soln] 1 dose NEB QID PRN 05/16/19 [History] Aspirin [Halfprin] 81 mg PO DAILY 05/16/19 [History] Budesonide [Pulmicort] 1 dose NEB DAILY 05/16/19 [History] Calcium Carbonate [Tums] 400 mg PO BID PRN 05/16/19 [History] Cyanocobalamin (Vitamin B-12) [Vitamin B-12] 1,000 mcg PO DAILY 05/16/19 [ History] Finasteride 5 mg PO DAILY 05/16/19 [History] Fish Oil/[place]-3 Fatty Acids [Fish Oil 1,000 MG] 1 gm PO DAILY 05/16/19 [History ] Furosemide 20 mg PO DAILY 05/16/19 [History] Isosorbide Mononitrate [Imdur] 15 mg PO DAILY 05/16/19 [History] Metoprolol Succinate 25 mg PO DAILY 05/16/19 [History] Pantoprazole Sodium [Protonix] 40 mg PO DAILY 05/16/19 [History] Rosuvastatin Calcium 10 mg PO DAILY 05/16/19 [History] Furosemide [Lasix] 40 mg PO DAILY #30 tab 06/15/19 [Rx] Magnesium Chloride [Slow-Mag] 71.5 mg PO DAILY #30 tablet.dr 06/15/19 [Rx] levoFLOXacin [Levaquin] 500 mg PO DAILY #9 tab 06/15/19 [Rx] KCl/Na Sulf,Bicarb,Cl/PEG 3351 [GoLytely] 4,000 ml PO ONETIME #1 bottle [Rx] Past Medical History HEENT History: Reports: Hard of Hearing, Impaired Vision Other HEENT History: Wears glasses, dentures, hearing aids Cardiovascular History: Reports: Afib, Aneurysm, Blood Clots/VTE/DVT, CAD, Cardiomyopathy, Heart Failure, Hypertension, [place], PVD Other Cardiovascular History: carotid stenosis, dvt x2 Respiratory History: Reports: COPD, Other (See Below) Other Respiratory History: LUNG MASS Gastrointestinal History: Reports: Diverticulosis, GERD Other Gastrointestinal History: increased bilirubin, dysphagia Genitourinary History: Reports: BPH, Retention, Urinary Other Genitourinary History: renal insufficiency, retention, CKD III [employer]ATION [employer]ER History: Reports: None Musculoskeletal History: Reports: Fracture, Osteoarthritis Other Musculoskeletal History: rib fracture, degenrative joint disease, vertebral fracture, hand pain, stress fracture Neurological History: Reports: Neuropathy, Peripheral, Other (See Below) Other Neuro History: cerviclagia Psychiatric History: Reports: None Endocrine/Metabolic History: Reports: Diabetes, Type II Hematologic History: Reports: Anemia Immunologic History: Reports: None Oncologic (Cancer) History: Reports: Colon Dermatologic History: Reports: Other (See Below) Other Dermatologic History: actinic keratosis, skin lesion, cryosurgery - Infectious Disease History Infectious Disease History: Reports: None - Past Surgical History Head Surgeries/Procedures: Reports: None HEENT Surgical History: Reports: Cataract Surgery, Laser Surgery Cardiovascular Surgical History: Reports: AAA Repair, Coronary Artery Bypass Respiratory Surgical History: Reports: None GI Surgical History: Reports: Appendectomy, Colon, Colonoscopy, EGD, Hernia, Inguinal Other GI Surgeries/Procedures: colon resection Male Surgical History: Reports: None, Prostatectomy Endocrine Surgical History: Reports: None Neurological Surgical History: Reports: Laminectomy, Vertebroplasty Musculoskeletal Surgical History: Reports: Other (See Below) Other Musculoskeletal Surgeries/Procedures:: hip repair- IM nailing Oncologic Surgical History: Reports: None Social & Family History - Family History Family Medical History: Noncontributory - Tobacco Use Smoking Status *Q: Former Smoker Used Tobacco, but Quit: Yes Month/Year Tobacco Last Used: 2003 - Caffeine Use Caffeine Use: Reports: Coffee - Recreational Drug Use Recreational Drug Use: No - Living Situation & Occupation Living situation: Reports: , with Spouse Occupation: Retired ED ROS GENERAL - Review of Systems Review Of Systems: See Below Constitutional: Denies: Fever, Chills HEENT: Reports: No Symptoms Respiratory: Reports: No Symptoms Cardiovascular: Reports: No Symptoms Endocrine: Reports: No Symptoms GI/Abdominal: Reports: Constipation. Denies: Abdominal Pain, Anorexia : Reports: No Symptoms Musculoskeletal: Reports: No Symptoms Skin: Reports: No Symptoms Neurological: Reports: No Symptoms Psychiatric: Reports: No Symptoms Hematologic/Lymphatic: Reports: No Symptoms Immunologic: Reports: No Symptoms ED EXAM, GI/ABD - Physical Exam Exam: See Below Exam Limited By: No Limitations General Appearance: Alert, WD/WN, Mild Distress Head: Atraumatic, Normocephalic Neck: Normal Inspection, Supple, Non-Tender, Full Range of Motion Respiratory/Chest: No Respiratory Distress, Lungs Clear, Normal Breath Sounds, No Accessory Muscle Use, Chest Non-Tender Cardiovascular: Normal Peripheral Pulses, Regular Rate, Rhythm, No Edema, No Gallop, No JVD, No Murmur, No Rub GI/Abdominal Exam: Normal Bowel Sounds, Soft, Non-Tender, No Organomegaly, Other (Rectal exam positive fecal impaction) Rectal (Males) Exam: Normal Rectal Tone, Fecal Impaction Back Exam: Normal Inspection, Full Range of Motion, NT Extremities: Normal Inspection, Normal Range of Motion, Non-Tender, Normal Capillary Refill, No Pedal Edema Skin Exam: Warm, Dry, Intact, Normal Color, No Rash ED ABDOMINAL/GI PROCEDURES - Additional/Other Procedure(s) Procedure(s) (Free Text): Manual fecal disimpaction by me moderate amount of stool obtained Course - Vital Signs Last Recorded V/S: Last Vital Signs Temp 98.2 F 06/17/19 20:46 Pulse 82 06/17/19 20:46 Resp 16 06/17/19 20:46 BP 129/97 H 06/17/19 20:46 Pulse Ox 95 06/17/19 20:46 - Orders/Labs/Meds Orders: Active Orders 24 hr Category Date Time Status Influenza Vaccine Charge [RC] .DISCHARGE Care 06/17/19 20:54 Active Meds: Medications Discontinued Medications Generic Name Dose Route Start Last Admin Trade Name Freq PRN Reason Stop Dose Admin Influenza Virus Vaccine 1 each 06/17/19 20:54 Pharmacy To Dose - Influenza Vaccine IM 06/17/19 20:55 ONETIME ONE Influenza Virus Vaccine 180 mcg 06/17/19 21:00 Fluzone High-Dose 2019-20 Syringe IM 06/17/19 21:01 .ONCE ONE Departure - Departure Time of Disposition: 21:06 Disposition: Home, Self-Care 01 Clinical Impression: Fecal impaction - Discharge Information Prescriptions: KCl/Na Sulf,Bicarb,Cl/PEG 3351 [GoLytely] 4,000 ml PO ONETIME #1 bottle Referrals: Oscar Chatman MD [Primary Care Provider] - Forms: ED Department Discharge Additional Instructions: Home, rest, if no bowel movement in 12 hours after taking magnesium citrate fill and take prescription, return as needed for worsening condition - My Orders Last 24 Hours: My Active Orders 06/17/19 20:54 Influenza Vaccine Charge [RC] .DISCHARGE - Assessment/Plan Last 24 Hours: My Active Orders 06/17/19 20:54 Influenza Vaccine Charge [RC] .DISCHARGE
[2019-06-17] MEDS ORDERED: Magnesium Citrate Solution 296 ML Bottle PO ONE (21:07)
== END 2019-06-17 21:25 | disposition home or self-care (01) ==
LOC: JD.ED 20:29
DX: K56.41 Fecal impaction (principal); I25.2 Old myocardial infarction; I13.0 Hypertensive heart and chronic kidney disease with heart failure and stage 1 through stage 4 chronic kidney disease, or unspecified chronic kidney disease; E11.22 Type 2 diabetes mellitus with diabetic chronic kidney disease; N18.3 Chronic kidney disease, stage 3 (moderate); I50.9 Heart failure, unspecified; J44.9 Chronic obstructive pulmonary disease, unspecified; K21.9 Gastro-esophageal reflux disease without esophagitis; Z23 Encounter for immunization; Z88.1 Allergy status to other antibiotic agents; Z88.0 Allergy status to penicillin; Z88.8 Allergy status to other drugs, medicaments and biological substances; Z79.899 Other long term (current) drug therapy; Z79.82 Long term (current) use of aspirin; Z86.718 Personal history of other venous thrombosis and embolism; Z87.891 Personal history of nicotine dependence
CPT/HCPCS: 90471; 90662; 99283; A9270; 99282

== ENCOUNTER 2019-08-16 14:16 | Emergency (ER) | payer MEDICARE, BC ==
[2019-08-16 14:37] VITALS: BP 115/74; PULSE 70
[2019-08-16] MEDS ORDERED: Sodium Chloride 0.9% 10 ML Syringe FLUSH PRN (14:41)
[2019-08-16] MEDS ORDERED: Metoclopramide 10 MG/2 ML SDV IVPUSH ONE (14:42)
[2019-08-16] MEDS ORDERED: Sodium Chloride 0.9% 1,000 ML IV ONE (14:43)
--- NOTE | 2019-08-16 14:57 | EDM.PDOC ---
ED HPI GENERAL MEDICAL PROBLEM - General Chief Complaint: Abdominal Pain Stated Complaint: ABDOMINAL PAIN Time Seen by Provider: 08/16/19 14:34 Source of Information: Reports: Patient, RN Notes Reviewed History Limitations: Reports: No Limitations - History of Present Illness INITIAL COMMENTS - FREE TEXT/NARRATIVE: Patient is an 88-year-old male who presents to the ED for the evaluation of upper abdominal pain and nausea. Patient notes he has a history of constipation , but he states he had a bowel movement this morning, it was a small bowel movement however. He further notes that his recently yesterday , he states he is dealing with this pretty okay, but states that sometimes he feels quite sad. He notes that the pain in his upper abdomen radiates up into his chest at times, but mostly stays in his upper abdomen. And again he states that he was nauseous with this, he states that he felt like he needed to puke but could not. Patient further notes that he is not eating much, and he has not had much of an appetite but this is not uncommon for him. He denies any fevers or chills, or any shortness of breath. Abdominal Pain Score (Numeric/FACES): 3 - Related Data Allergies Allergy/AdvReac Type Severity Reaction Status Date / Time ampicillin Allergy Hives Verified 08/16/19 14:34 levofloxacin [From Levaquin] Allergy Rash Verified 08/16/19 14:34 Penicillins Allergy Hives Verified 08/16/19 14:34 tetracycline Allergy Cannot Verified 08/16/19 14:34 Remember atorvastatin [From Lipitor] AdvReac Body Aches Verified 08/16/19 14:34 lovastatin AdvReac Body Aches Verified 08/16/19 14:34 pravastatin AdvReac Body Aches Verified 08/16/19 14:34 Home Meds: Home Meds Albuterol Sulfate [Albuterol Sulfate Hfa] 2 puff INH Q4H PRN 05/16/19 [History] Albuterol [Proventil Neb Soln] 1 dose NEB QID PRN 05/16/19 [History] Aspirin [Halfprin] 81 mg PO DAILY 05/16/19 [History] Budesonide [Pulmicort] 1 dose NEB DAILY 05/16/19 [History] Calcium Carbonate [Tums] 400 mg PO BID PRN 05/16/19 [History] Cyanocobalamin (Vitamin B-12) [Vitamin B-12] 1,000 mcg PO DAILY 05/16/19 [ History] Finasteride 5 mg PO DAILY 05/16/19 [History] Fish Oil/[place]-3 Fatty Acids [Fish Oil 1,000 MG] 1 gm PO DAILY 05/16/19 [History ] Furosemide 20 mg PO DAILY 05/16/19 [History] Isosorbide Mononitrate [Imdur] 15 mg PO DAILY 05/16/19 [History] Metoprolol Succinate 25 mg PO DAILY 05/16/19 [History] Pantoprazole Sodium [Protonix] 40 mg PO DAILY 05/16/19 [History] Rosuvastatin Calcium 10 mg PO DAILY 05/16/19 [History] Cefdinir [Omnicef] 300 mg PO BID #16 cap 08/16/19 [Rx] Past Medical History HEENT History: Reports: Hard of Hearing, Impaired Vision Other HEENT History: Wears glasses, dentures, hearing aids Cardiovascular History: Reports: Afib, Aneurysm, Blood Clots/VTE/DVT, CAD, Cardiomyopathy, Heart Failure, Hypertension, [place], PVD Other Cardiovascular History: carotid stenosis, dvt x2 Respiratory History: Reports: COPD, Other (See Below) Other Respiratory History: LUNG MASS Gastrointestinal History: Reports: Diverticulosis, GERD Other Gastrointestinal History: increased bilirubin, dysphagia Genitourinary History: Reports: BPH, Retention, Urinary Other Genitourinary History: renal insufficiency, retention, CKD III Musculoskeletal History: Reports: Fracture, Osteoarthritis Other Musculoskeletal History: rib fracture, degenrative joint disease, vertebral fracture, hand pain, stress fracture Neurological History: Reports: Neuropathy, Peripheral, Other (See Below) Other Neuro History: cerviclagia Endocrine/Metabolic History: Reports: Diabetes, Type II Hematologic History: Reports: Anemia Oncologic (Cancer) History: Reports: Colon Dermatologic History: Reports: Other (See Below) Other Dermatologic History: actinic keratosis, skin lesion, cryosurgery - Past Surgical History HEENT Surgical History: Reports: Cataract Surgery, Laser Surgery Cardiovascular Surgical History: Reports: AAA Repair, Coronary Artery Bypass GI Surgical History: Reports: Appendectomy, Colon, Colonoscopy, EGD, Hernia, Inguinal Other GI Surgeries/Procedures: colon resection Male Surgical History: Reports: Prostatectomy Neurological Surgical History: Reports: Laminectomy, Vertebroplasty Musculoskeletal Surgical History: Reports: Other (See Below) Other Musculoskeletal Surgeries/Procedures:: hip repair- IM nailing Social & Family History - Family History Family Medical History: Noncontributory - Tobacco Use Smoking Status *Q: Former Smoker Used Tobacco, but Quit: Yes Month/Year Tobacco Last Used: 2004 - Caffeine Use Caffeine Use: Reports: Coffee - Living Situation & Occupation Living situation: Reports: , Alone Occupation: Retired ED ROS GENERAL - Review of Systems Review Of Systems: See Below Constitutional: Denies: Fever, Chills Respiratory: Denies: Shortness of Breath Cardiovascular: Reports: Chest Pain (low chest/upper abd pain). Denies: Blood Pressure Problem, Dyspnea on Exertion, Edema GI/Abdominal: Reports: Abdominal Pain (upper abd/ low chest), Constipation (had small BM this AM), Nausea. Denies: Diarrhea, Vomiting : Denies: Dysuria, Frequency, Incontinence, Urgency, Urinary Retention ED EXAM, GI/ABD - Physical Exam Exam: See Below Exam Limited By: No Limitations General Appearance: Alert, WD/WN, No Apparent Distress Eyes: Bilateral: Normal Appearance Ears: Normal External Exam Nose: Normal Inspection Throat/Mouth: Normal Inspection, Normal Lips, Normal Teeth, Normal Gums, Normal Oropharynx, Normal Voice, No Airway Compromise Head: Atraumatic, Normocephalic Neck: Normal Inspection Respiratory/Chest: No Respiratory Distress, Lungs Clear, Normal Breath Sounds, No Accessory Muscle Use, Chest Non-Tender Cardiovascular: Normal Peripheral Pulses, Regular Rate, Rhythm, No Edema, No Murmur GI/Abdominal Exam: Soft, Non-Tender, No Distention, No Mass, Abnormal Bowel Sounds (hypoactive bowel tones) Extremities: Normal Inspection, Normal Capillary Refill Neurological: Alert, Oriented, Normal Cognition, No Motor/Sensory Deficits Psychiatric: Normal Affect, Normal Mood Skin Exam: Warm, Dry, Intact, Normal Color, No Rash EKG INTERPRETATION EKG Date: 08/16/19 Time: 14:43 Rhythm: NSR Rate (Beats/Min): 61 [place]: Normal P-Wave: Present QRS: Normal ST-T: Normal QT: Normal Comparison: No Change (compared to EKG on 06/15/19) EKG Interpretation Comments: Reviewed with Dr. Loredo, no acute ischemic change noted. Course - Vital Signs Last Recorded V/S: Last Vital Signs Temp 97.5 F 08/16/19 14:34 Pulse 70 08/16/19 14:34 Resp 18 08/16/19 14:34 BP 115/74 08/16/19 14:34 Pulse Ox 98 08/16/19 14:34 - Orders/Labs/Meds Orders: Active Orders 24 hr Category Date Time Status Bladder Scan [RC] ASDIRECTED Care 08/16/19 16:00 Ordered EKG Documentation Completion [RC] STAT Care 08/16/19 14:41 Active Enema [RC] ASDIRECTED Care 08/16/19 15:33 Ordered Peripheral IV Care [RC] . DIRECTED Care 08/16/19 14:41 Active Chest 1V Frontal [CR] Stat Exams 08/16/19 14:41 Ordered KUB [Abdomen 1V Flat] [CR] Stat Exams 08/16/19 14:43 Ordered CBC WITH MANUAL DIFF [HEME] Stat Lab 08/16/19 14:41 Ordered CULTURE URINE [RM] Routine Lab 08/16/19 16:00 Ordered Sodium Chloride 0.9% [Normal Saline] 1,000 ml Med 08/16/19 14:43 Active IV ONETIME Sodium Chloride 0.9% [Saline Flush] Med 08/16/19 14:41 Active 10 ml FLUSH ASDIRECTED PRN Peripheral IV Insertion Adult [OM.PC] Stat Oth 08/16/19 14:41 Ordered Medication Orders Sodium Chloride (Normal Saline) 1,000 mls @ 500 mls/hr IV ONETIME ONE Stop: 08/16/19 16:42 Last Admin: 08/16/19 15:12 Dose: 500 mls/hr Sodium Chloride (Saline Flush) 10 ml FLUSH ASDIRECTED PRN PRN Reason: Keep Vein Open Last Admin: 08/16/19 15:14 Dose: 10 ml Labs: Laboratory Tests 08/16/19 08/16/19 08/16/19 Range/Units 15:10 15:10 15:10 WBC (4.23-9.07) K/mm3 RBC (4.63-6.08) M/mm3 Hgb (13.7-17.5) gm/dl Hct (40.1-51.0) % MCV (79.0-92.2) fl MCH (25.7-32.2) pg MCHC (32.2-35.5) g/dl RDW Std Deviation (35.1-43.9) fL Plt Count (163-337) K/mm3 MPV (9.4-12.3) fl PT 11.1 (9.7-12.0) SECONDS INR 1.02 APTT 26 (22-31) SECONDS Sodium 141 (136-145) mEq/L Potassium 4.3 (3.5-5.1) mEq/L Chloride 107 (98-107) mEq/L Carbon Dioxide 22 (21-32) mEq/L Anion Gap 16.3 H (5-15) BUN 35 H (7-18) mg/dL Creatinine 1.7 H (0.7-1.3) mg/dL Est Cr Clr Drug Dosing 29.46 mL/min Estimated GFR (MDRD) 38 (>60) mL/min BUN/Creatinine Ratio 20.6 H (14-18) Glucose 117 H (83-115) mg/dL Calcium 9.1 (8.5-10.1) mg/dL Magnesium 2.4 (1.8-2.4) mg/dl Total Bilirubin 0.7 (0.2-1.0) mg/dL AST 19 (15-37) U/L ALT 18 (16-63) U/L Alkaline Phosphatase 86 (46-116) U/L Troponin I < 0.017 (0.00-0.056) ng/mL NT-Pro-B Natriuret Pep 1097 H (0-450) pg/mL Total Protein 7.2 (6.4-8.2) g/dl Albumin 3.6 (3.4-5.0) g/dl Globulin 3.6 gm/dL Albumin/Globulin Ratio 1.0 (1-2) Lipase 110 (73-393) U/L Urine Color (Yellow) Urine Appearance (Clear) Urine pH (5.0-8.0) Ur Specific Electra (1.005-1.030) Urine Protein (Negative) Urine Glucose (UA) (Negative) Urine Ketones (Negative) Urine Occult Blood (Negative) Urine Nitrite (Negative) Urine Bilirubin (Negative) Urine Urobilinogen (0.2-1.0) Ur Leukocyte Esterase (Negative) Urine RBC (0-5) /hpf Urine WBC (0-5) /hpf Ur Squamous Epith Cells (0-5) /hpf Urine Bacteria (FEW) /hpf Hyaline Casts (0-5) /lpf Urine Mucus (FEW) /hpf 08/16/19 08/16/19 Range/Units 15:30 15:48 WBC 3.73 L (4.23-9.07) K/mm3 RBC 3.63 L (4.63-6.08) M/mm3 Hgb 10.2 L (13.7-17.5) gm/dl Hct 32.6 L (40.1-51.0) % MCV 89.8 (79.0-92.2) fl MCH 28.1 (25.7-32.2) pg MCHC 31.3 L (32.2-35.5) g/dl RDW Std Deviation 46.7 H (35.1-43.9) fL Plt Count 154 L (163-337) K/mm3 MPV 10.5 (9.4-12.3) fl PT (9.7-12.0) SECONDS INR APTT (22-31) SECONDS Sodium (136-145) mEq/L Potassium (3.5-5.1) mEq/L Chloride (98-107) mEq/L Carbon Dioxide (21-32) mEq/L Anion Gap (5-15) BUN (7-18) mg/dL Creatinine (0.7-1.3) mg/dL Est Cr Clr Drug Dosing mL/min Estimated GFR (MDRD) (>60) mL/min BUN/Creatinine Ratio (14-18) Glucose (83-115) mg/dL Calcium (8.5-10.1) mg/dL Magnesium (1.8-2.4) mg/dl Total Bilirubin (0.2-1.0) mg/dL AST (15-37) U/L ALT (16-63) U/L Alkaline Phosphatase (46-116) U/L Troponin I (0.00-0.056) ng/mL NT-Pro-B Natriuret Pep (0-450) pg/mL Total Protein (6.4-8.2) g/dl Albumin (3.4-5.0) g/dl Globulin gm/dL Albumin/Globulin Ratio (1-2) Lipase (73-393) U/L Urine Color Light yellow (Yellow) Urine Appearance Clear (Clear) Urine pH 6.0 (5.0-8.0) Ur Specific [place] > or = 1.030 (1.005-1.030) Urine Protein Negative (Negative) Urine Glucose (UA) Negative (Negative) Urine Ketones Negative (Negative) Urine Occult Blood 1+ H (Negative) Urine Nitrite Negative (Negative) Urine Bilirubin Negative (Negative) Urine Urobilinogen 0.2 (0.2-1.0) Ur Leukocyte Esterase Negative (Negative) Urine RBC 5-10 H (0-5) /hpf Urine WBC 10-20 H (0-5) /hpf Ur Squamous Epith Cells 5-10 H (0-5) /hpf Urine Bacteria Rare (FEW) /hpf Hyaline Casts 5-10 H (0-5) /lpf Urine Mucus Rare (FEW) /hpf Meds: Medications Generic Name Dose Route Start Last Admin Trade Name Freq PRN Reason Stop Dose Admin Sodium Chloride 1,000 mls @ 500 mls/hr 08/16/19 14:43 08/16/19 15:12 Normal Saline IV 08/16/19 16:42 500 mls/hr ONETIME ONE Administration Sodium Chloride 10 ml 08/16/19 14:41 08/16/19 15:14 Saline Flush FLUSH 10 ml ASDIRECTED PRN Administration Keep Vein Open Discontinued Medications Generic Name Dose Route Start Last Admin Trade Name Freq PRN Reason Stop Dose Admin Metoclopramide HCl 10 mg 08/16/19 14:42 08/16/19 15:12 Reglan IVPUSH 08/16/19 14:43 10 mg ONETIME ONE Administration - Re-Assessments/Exams Free Text/Narrative Re-Assessment/Exam: 08/16/19 14:57 Patient presents to the ED for the evaluation of upper abdominal/lower chest pain. Patient has a history of a AAA repair, [place]. I did order EKG, chest x-ray , KUB, CBC, CMP, lipase, magnesium, BNP, troponin, coagulation studies, some IV fluids and 10 mg of Reglan for initial management. EKG was done and demonstrates no obvious acute ischemic change. 08/16/19 15:34 X-rays are done, chest x-ray shows no focal abnormalities or consolidations that are worrisome. KUB shows mild amount of gas within the upper part of the colon, which could be causing some of his pain. He does have quite a bit of stool within his rectal vault. Official radiology read is pending, x-rays were reviewed by myself and Dr. Loredo. An enema will be ordered at this time. Was made notified that the patient was able to urinate, we will check a urine sample to make sure there is no infection there as well. 08/16/19 16:12 Patient's labs have resulted, white blood cell count is mildly low, hemoglobin is also mildly low at 10. Urine does demonstrate 10-20 white blood cells, and some blood in the urine which would suggest an infection. BNP is mildly elevated at just over thousand, patient does take 20 mg of Lasix daily, potassium is within normal limits, so I will tell him to start taking 40 mg of Lasix daily and have him follow-up with his regular care provider sometime next week. Patient will be started on Omnicef 300 mg twice daily x7 days, the urine is sent for culture at this time. Departure - Departure Time of Disposition: 16:16 Disposition: Home, Self-Care 01 Condition: Fair Clinical Impression: Elevated brain natriuretic peptide (BNP) level UTI (urinary tract infection) Qualifiers: Urinary tract infection type: acute cystitis Hematuria presence: with hematuria Qualified Code(s): N30.01 - Acute cystitis with hematuria Constipation Qualifiers: Constipation type: other constipation type Qualified Code(s): K59.09 - Other constipation - Discharge Information *PRESCRIPTION DRUG MONITORING PROGRAM REVIEWED*: No *COPY OF PRESCRIPTION DRUG MONITORING REPORT IN PATIENT CHRISTINE: No Prescriptions: Cefdinir [Omnicef] 300 mg PO BID #16 cap Instructions: Urinary Tract Infection, Adult, [id number] Referrals: Oscar Chatman MD [Primary Care Provider] - Forms: ED Department Discharge Additional Instructions: You were evaluated in the ER today regarding your upper abdominal pain. You did have a chest x-ray, abdominal x-ray, and some labs taken today. Your labs demonstrated that you had a UTI, mildly elevated BNP. You will be started on an antibiotic, Omnicef, 300 mg twice daily for the next 8 days, and recommend you take 40 mg of Lasix daily instead of the 20 you are already taking. You were given an enema in the ER today for your abdominal pain, as your x-rays demonstrated you were slightly constipated. Recommend you follow-up with your regular care provider, sometime within the next week or week and a half for reevaluation. Please return to the ER at any time if your symptoms change or worsen. Sepsis Event Note - Evaluation Sepsis Screening Result: No Definite Risk - Focused Exam Vital Signs: Vital Signs Temp Pulse Resp BP Pulse Ox 08/16/19 14:34 97.5 F 70 18 115/74 98 Date Exam was Performed: 08/16/19 Time Exam was Performed: 16:12 - My Orders Last 24 Hours: My Active Orders 08/16/19 14:41 EKG Documentation Completion [RC] STAT Peripheral IV Care [RC] . DIRECTED Chest 1V Frontal [CR] Stat CBC WITH MANUAL DIFF [HEME] Stat Sodium Chloride 0.9% [Saline Flush] 10 ml FLUSH ASDIRECTED PRN Peripheral IV Insertion Adult [OM.PC] Stat 08/16/19 14:43 KUB [Abdomen 1V Flat] [CR] Stat Sodium Chloride 0.9% [Normal Saline] 1,000 ml IV ONETIME 08/16/19 15:33 Enema [RC] ASDIRECTED 08/16/19 16:00 Bladder Scan [RC] ASDIRECTED CULTURE URINE [RM] Routine - Assessment/Plan Last 24 Hours: My Active Orders 08/16/19 14:41 EKG Documentation Completion [RC] STAT Peripheral IV Care [RC] . DIRECTED Chest 1V Frontal [CR] Stat CBC WITH MANUAL DIFF [HEME] Stat Sodium Chloride 0.9% [Saline Flush] 10 ml FLUSH ASDIRECTED PRN Peripheral IV Insertion Adult [OM.PC] Stat 08/16/19 14:43 KUB [Abdomen 1V Flat] [CR] Stat Sodium Chloride 0.9% [Normal Saline] 1,000 ml IV ONETIME 08/16/19 15:33 Enema [RC] ASDIRECTED 08/16/19 16:00 Bladder Scan [RC] ASDIRECTED CULTURE URINE [RM] Routine
--- NOTE | 2019-08-17 17:48 | CR ---
Chest: Portable view of the chest was obtained. Comparison: Prior chest x-ray of 06/15/19. Heart size appears within normal limits for portable technique. Mild tortuosity of the thoracic aorta is seen. Previous sternotomy is noted. Lungs are clear with no acute parenchymal change. Bony structures are grossly intact. Impression: 1. Nothing acute is seen on portable chest x-ray. Diagnostic code #2 This report was dictated in [place] [employer]
--- NOTE | 2019-08-17 17:48 | CR ---
Abdomen: Supine portable view of the abdomen was obtained. Comparison: Prior abdominal x-ray of 05/21/19. Aortoiliac stents are present. Bowel gas pattern appears normal. Previous sternotomy is seen. Bony structures are osteopenic. Vascular calcification is seen. Impression: 1. Findings as noted above. 2. Nothing acute is seen on supine abdominal x-ray. Diagnostic code #2 This report was dictated in [place] [employer]
== END 2019-08-16 16:45 | disposition home or self-care (01) ==
LOC: JD.ED 14:16
DX: N30.01 Acute cystitis with hematuria (principal); K59.09 Other constipation; R79.89 Other specified abnormal findings of blood chemistry; I13.0 Hypertensive heart and chronic kidney disease with heart failure and stage 1 through stage 4 chronic kidney disease, or unspecified chronic kidney disease; E11.22 Type 2 diabetes mellitus with diabetic chronic kidney disease; E11.42 Type 2 diabetes mellitus with diabetic polyneuropathy; N18.3 Chronic kidney disease, stage 3 (moderate); I50.9 Heart failure, unspecified; I25.10 Atherosclerotic heart disease of native coronary artery without angina pectoris; J44.9 Chronic obstructive pulmonary disease, unspecified; Z88.1 Allergy status to other antibiotic agents; Z88.8 Allergy status to other drugs, medicaments and biological substances; Z87.891 Personal history of nicotine dependence
CPT/HCPCS: 36415; 51798; 71045; 74018; 80053; 81001; 83690; 83735; 83880; 84484; 85007; 85027; 85610; 85730; 87086; 93005; 96361; 96374; 99284; J2765; J7030; 93010; 99283